=== PATIENT | female | born 1965 | race Caucasian/White ===

== ENCOUNTER → 2018-03-03 11:37 | Outpatient (CLI) | payer OTHER, SELFPAY ==
--- NOTE | 2018-03-03 11:41 | BI_ITS ---
MAMMOGRAPHY - BILATERAL SCREENING REASON FOR EXAM: Female, 52 years old. Routine annual screening examination. PERTINENT HISTORY: Mother with breast cancer. Remote right excisional breast biopsy. Bilateral breast implants. TECHNIQUE: Digital bilateral breast ki (3D mammographic acquisition) in the CC and MLO projections. 2-D mediolateral oblique (MLO) and craniocaudad (CC) views of both breasts were obtained. CAD: Full Field Digital Mammography with Computer Added Detection was performed. COMPARISON: Comparison is made with prior study dated March 06, 2015. FINDINGS: Breast Composition: There are scattered areas of fibroglandular density. There are no dominant masses or suspicious calcifications. Stable appearance of the bilateral breast implants. No other significant abnormalities are identified. There has been no significant change since the prior study. BI/SCREENING MAMM (CAD), BILAT IMPRESSION: Stable bilateral screening mammogram. Yearly follow-up mammogram recommended. (A) ASSESSMENT CATEGORY: BIRADS Category 2: Benign. A letter regarding these results will be sent to the patient by the facility within 30 days. Approximately 10% of breast cancers are not detected by mammography. A normal mammogram should not delay biopsy of a clinically suspicious abnormality. [id number] Electronically Signed: Sergio Young MD at 15:41 EST Tel [phone], Service support ,
== END ==
PROVIDERS: Family Provider Internal Medicine; PCP Internal Medicine; Visit Provider Internal Medicine
DX: Z12.31 Encounter for screening mammogram for malignant neoplasm of breast (principal)
CPT/HCPCS: 77063; 77067

== ENCOUNTER → 2018-03-03 12:08 | Outpatient (CLI) | payer OTHER, SELFPAY ==
--- NOTE | 2018-03-03 12:16 | CT_ITS ---
STUDY: CT ABDOMEN WITH CONTRAST REASON FOR EXAM: Female, 52 years old. Abdominal bulge RADIATION DOSAGE (If Supplied By Facility): CTDIvol = ( 11.83 ) mGy, DLP = ( 521.39 ) mGycm TECHNIQUE: Transaxial images were obtained post I.V. administration of 100 ml of Isovue 300 contrast, and oral contrast. Sagittal and coronal images were reconstructed. Individualized dose optimization techniques were used for this CT. COMPARISON: None. FINDINGS: Bilateral breast implants. The right implant is ruptured (extracapsular). There is subsequent tracking of the fluid into the subcutaneous space in the right upper quadrant and hence the clinical history of the right upper quadrant bulge The liver is normal. No dilated intrahepatic biliary radicles. The gallbladder is normal with no calcifications within it. There is no pericholecystic fluid collection or streakiness The spleen is normal. The pancreas is normal. A 1.1 cm left adrenal nodule There is a left-sided extrarenal pelvis and a tiny right benign cyst. The stomach is normal. There is no bowel distention, acute appendicitis or diverticulitis. No constricting lesions are seen in large bowel. The abdominal wall is intact with no hernias. There is no ascites or any free intraperitoneal air. No indication of epiploic appendagitis The vascular structures in the retroperitoneum are normal. There is no retrocrural, retroperitoneal or mesenteric adenopathy. The bones and joints are normal. . CT/Abdomen WITH IV Contrast IMPRESSION: Extracapsular rupture of a right breast implant with collection of fluid within the subcutaneous tissues over the right lower chest wall. This has created the clinically palpable bulge mentioned in the history. Electronically Signed: Maciel Ramos MD at 6:57 EST Tel , Service support ,
== END ==
LOC: CT 12:12
PROVIDERS: Family Provider Internal Medicine; PCP Internal Medicine; Referring Provider Internal Medicine; Visit Provider Internal Medicine
DX: R19.01 Right upper quadrant abdominal swelling, mass and lump (principal)
CPT/HCPCS: 74160; 74177; Q9967

== ENCOUNTER → 2018-03-24 09:12 | Outpatient (CLI) | payer OTHER, SELFPAY ==
--- NOTE | 2018-03-24 09:30 | RAD_ITS ---
STUDY: X-RAY - ESOPHAGUS (BARIUM SWALLOW) WITH FLUOROSCOPY REASON FOR EXAM: Female, 52 years old. Dysphasia. TECHNIQUE: 18 view(s) of the esophagus were obtained following swallowing of barium. FLUOROSCOPY TIME (if supplied): (0:30) minutes/seconds COMPARISON: None. FINDINGS: There is no demonstrated esophageal foreign body. There is no demonstrated stricture or mucosal abnormality. There is a small hiatal hernia of the fundus of the stomach. There is evidence of gastroesophageal reflux up to the mid esophagus. A web is seen at the gastroesophageal junction. The patient ingested a 12 mm tablet of barium. The tablet is trapped at the gastroesophageal junction. Normal visualized aortic arch and descending thoracic aorta. Normal visualized pulmonary parenchyma. There are diffuse degenerative changes of the visualized thoracic spine. RAD/Esophagus Only IMPRESSION: Small sliding hiatal hernia with a moderate degree of gastroesophageal reflux. A wet is seen at the gastroesophageal junction with trapping of the 12 mm tablet of barium at that site. Electronically Signed: Sergio Young MD at 13:23 EST Tel [phone], Service support ,
--- OUTSIDE RECORDS SUMMARY | 2018-05-05 22:25 | XMS RPT_ITS ---
:1965 Author Organization [employer] Address [address] [place] [address] Phone Care Team Providers Name Role Phone Ran Fitzpatrick MD Reason for Visit Reason For Visit Description Start Date Consult Preliminary reason for visit data, not yet signed by the author as of ruptured breast implant Preliminary reason for visit data, not yet signed by the author as of Chief Complaint Chief Complaint Description Start Date ruptured breast implant Preliminary chief complaint data, not yet signed by the author as of Instructions Instruction Description Start Date Patient advised to follow-up with Primary Care Physician for BMI management. Plan of Care Type Date Detail Appointment 09:00 AM [facility] Fitzpatrick [facility] [address] [facility], [place], [address], Patient education \cps-[email or web address]\[email or web address]\C [email or web address].pdf Medications Medication Instructions Start Stop Generic Name NDC Provider Date Date CITALOPRAM 1 tablet daily / CITALOPRAM 04144756300 Margarita HYDROBROMIDE 10 04 HYDROBROMIDE [place] MG TABS [employer]ULTANT MULTIVITAMIN 1 tablet daily / MULTIPLE [id number] Margarita ADULT TABS 04 VITAMINS-MINERAL [place] S [employer]ANT OMEGA-3 FISH 1 capsule daily / OMEGA-3 FATTY [id number] Margarita OIL CAPS 04 ACIDS CAPS [place] [employer] DHA 300MG 1 capsule daily / DHA 300MG Margarita 04 [place] [employer] PROBIOTIC CAPS 1 capsule daily SACCHAROMYCES [id number] Margarita 04 BOULARDII CAPS [place] [employer] TURMERIC CAPS 1 capsule daily TURMERIC CAPS [id number] Margarita 04 [place] [employer] Conditions or Problems Problem Problem Onset Status Entry Provider Comment Standard Annotate Name Code Date Date Description Encounter Z41.1 Active Ran A Encounter for for (ICD-10-CM) / Nanette SOLIMAN cosmetic cosmetic surgery surgery Rupture of [id number] Active Ran A Rupture of implant of (SNOMED CT) / Nanette SOLIMAN breast right implant breast Allergies, Adverse Reactions, Alerts Observed no known allergies at Social History Concept Description Observation Name Observation Value Units Start Date Alcohol intake ALCOHOL COMM 2-3 beers with 7 days/week Preliminary social history data, not yet signed by the author as of Alcohol use ETOH USE Yes Preliminary social history data, not yet signed by the author as of Vital Signs Date Name Value Unit Description BMI (Body Mass 31.82 kg/m2 Body Mass Index Index) [Ratio] Preliminary vital sign data, not yet signed by the author as of BP Diastolic 84 mm[Hg] blood pressure, diastolic Preliminary vital sign data, not yet signed by the author as of BP Systolic 129 mm[Hg] blood pressure, systolic Preliminary vital sign data, not yet signed by the author as of Heart Rate 78 /min pulse rate E&M Preliminary vital sign data, not yet signed by the author as of Height 63 [in_us] height E&M Preliminary vital sign data, not yet signed by the author as of Height 160 cm height in centimeters E&M Preliminary vital sign data, not yet signed by the author as of Weight Measured 179 [lb_av] weight E&M Preliminary vital sign data, not yet signed by the author as of Weight Measured 81 kg weight in kilograms E&M Preliminary vital sign data, not yet signed by the author as of Results Date Name Value Unit Range Flag Description Office Visit: Consult, Rm: 10 MEDS REVIEW Done Documentation of current medications (procedure) Preliminary observation data, not yet signed by the author as of Preliminary observation data, not yet signed by the author as of Clinical Summary: Scanned ROS Summary ROS: Denies genitourinary review of systems, E&M ROS GI COM Heart Gastrointestional Burn,Vomiting review of systems, comment ROS: GI Complains ROS gastrointestinal E&M ROS ENDO COM Weight Gain,Heat endocrine system, Intolerance review of, comments ROS ENDO Complains endocrine ROS ROS MSK COMM Joint Pain ROS Musculoskeletal comments ROS:MUSCSKEL Complains ROS musculoskeletal E&M ROSPSYCHCOMM Anxiety,Depressi ROS Psych comment on ROS: PSYCH Complains ROS psychiatric E&M ROS HEME Denies ROS hematologic/lymphatic E&M ROS_SKIN_COM Itching Review of Systems Skin comment ROS SKIN Complains ROS skin E&M ROS ENT Denies ROS ENT E&M ROS:GENERAL Denies ROS general E&M ROS: NEURO Denies ROS neurological E&M ROS:PULMON Denies ROS pulmonary E&M ROS: CARDIAC Denies ROS cardiovascular E&M Clinical Summary: [facility] account number Clinical Lists Update: Preload Extended SMOK STATUS former smoker Tobacco smoking status NHIS Procedures Code Procedure Name Date Entry Date G8731 Pain assessment documented as negative - follow-up not required G8427 Current medications documented 1036F Tobacco screening was negative - non user G8417 BMI documented as above normal parameters - follow-up documented G8783 Blood pressure within normal parameters - no follow-up required [id number] Patient Encounter Medications Administered No information available. Immunizations No information available. Advance Directives There may be information available, but it has not been provided by the sender. Assessments There may be information available, but it has not been provided by the sender. Review of Systems There may be information available, but it has not been provided by the sender. Family History There may be information available, but it has not been provided by the sender. History of Past Illness There may be information available, but it has not been provided by the sender. History of Present Illness There may be information available, but it has not been provided by the sender.
--- OUTSIDE RECORDS SUMMARY | 2018-05-05 22:25 | XMS RPT_ITS | Continuity of Care Document ---
:1965 Author Organization [facility] Address [address] [place] [address] Phone Care Team Providers Name Role Phone Jovana Puentes DO Unavailable Suzanne Abreu DO Unavailable Dr. Praveen Mills Unavailable Alyse Glaser Unavailable Unavailable Benita Gibbs Unavailable Unavailable Louisa Pantoja Unavailable Unavailable Unavailable Unavailable Problems Name Dates Details Abdominal mass, RUQ (right upper quadrant) (R19.01, 789.31) Status: Active Abnormal finding on breast imaging (R92.8, 793.89) Status: Active Abortions/Miscarriages Comments: [facility] 88-89 Status: Active Adrenal adenoma, left (D35.02, 227.0) Comments: followup 6 olga Status: Active Anxiety (F41.9, 300.00) Status: Active BMI 30.0-30.9,adult (Z68.30, V85.30) Status: Active Candidiasis (B37.9, 112.9) Status: Active Chronic foot pain, right (M79.671, 729.5) Comments: take ibuprofen routinely and if not better morw work up Status: Active Dysphagia (R13.10, 787.20) Status: Active Encounter for screening mammogram for breast cancer (Renamed from Encounter for screening mammogram for malignant neoplasm of breast) (Z12.31, V76.12) Status: Active Family history of hyperparathyroidism (Z83.49, V18.19) Status: Active GERD (gastroesophageal reflux disease) (K21.9, 530.81) Comments: otc pepcid Status: Active Keratosis (L57.0, 701.1) Status: Active Low back pain potentially associated with radiculopathy (M54.5, 724.2) Status: Active [facility] Status: Active Migraine (G43.909, 346.90) Status: Active Non-smoker (Z78.9, V49.89) Status: Active Obesity (E66.9, 278.00) Comments: with other comorbid issues she needs to loose more weight even though under 30 bmi. she is making lifestyle change. okay for another month Status: Active Other dysphagia (R13.19, 787.29) Status: Active Pregnancies () Comments: 3 Status: Active PVC (premature ventricular contraction) (I49.3, 427.69) Status: Active Ruptured right breast implant (T85.43XA, 996.54) Status: Active Thyroid nodule (E04.1, 241.0) Status: Active Thyromegaly (E04.9, 240.9) Status: Active Unspecified Diagnosis Status: Active Unspecified Diagnosis Status: Active Unspecified Diagnosis Status: Active Unspecified Diagnosis Status: Active Vitamin D deficiency (E55.9, 268.9) Status: Active Well woman exam (Z00.00, V70.0) Status: Active Medications Name Dates Details Citalopram Hydrobromide 20 MG Oral Tablet 1 Tablet qd for 0 days Quantity: 30 {Tablet} Refills: 6 Ordered:26-May-2017 Jalyn Lara MD Start : 26-May-2017 Active Vitamin D3 2000 UNIT Oral Tablet 2 (two) Tablet Tablet qd for 0 days Quantity: 30 {Tablet} Refills: 2 Ordered:23-Oct-2016 Benita Gibbs Start : 19-Jul-2016 Active Adipex-P 37.5 MG Oral Tablet 1 (one) Tablet qd for 0 days Quantity: 30 {Tablet} Refills: 0 Ordered:09-Dec-2017 SEEMA Sahu Start : 29-May-2017 End : 09-Dec-2017 Inactive Comments:thirty BMI 30.75 Augmentin 875-125 MG Oral Tablet 1 (one) Tablet bid x 10days for 10 days Quantity: 20 {Tablet} Refills: 0 Ordered:30-Apr-2017 Alyse Glaser Start : 30-Apr-2017 End : 10-May-2017 Inactive BACTRIM DS, 800-160MG (Oral Tablet) 1 Tablet bid for 7 days Quantity: 14 {Tablet} Refills: 0 Ordered:21-Oct-2011 Tiffanie Cevallos CNP Start : 21-Oct-2011 End : 28-Oct-2011 Inactive Belviq 10 MG Oral Tablet 1 (one) Tablet bid for 0 days Quantity: 60 {Tablet} Refills: 0 Ordered:27-Mar-2017 SEEMA Sahu Start : 02-Jan-2017 End : 27-Mar-2017 Inactive Comments:sixty BMI=29.8 BIAXIN, 500MG (Oral Tablet) 1 (one) Tablet bid for 0 days Quantity: 20 {Tablet} Refills: 0 Ordered:19-Jan-2010 Mirna Wilcox Start : 30-May-2009 Inactive Cipro 500 MG Oral Tablet 1 (one) Tablet bid for 0 days Quantity: 20 {Tablet} Refills: 0 Ordered:03-Jan-2017 SEEMA Sahu Start : 29-Nov-2016 End : 03-Jan-2017 Inactive CYCLOBENZAPRINE HCL, 10MG (Oral Tablet) 1 (one) Tablet qhs prn for 30 days Quantity: 30 {Tablet} Refills: 1 Ordered:31-Aug-2010 SEEMA Sahu Start : 13-Nov-2009 End : 31-Aug-2010 Inactive Doxycycline Hyclate 100 MG Oral Tablet Delayed Release 1 (one) Tablet bid for 0 days Quantity: 28 {Tablet} Refills: 0 Ordered:03-Jan-2017 SEEMA Sahu Start : 23-Oct-2016 End : 03-Jan-2017 Inactive DULoxetine HCl 30 MG Oral Capsule Delayed Release Particles 1 (one) Capsule DR Part Capsule DR Part qd for 0 days Quantity: 30 {Capsule} Refills: 3 Ordered:26-May-2017 SEEMA Sahu Start : 19-Jul-2016 End : 26-May-2017 Inactive Fluconazole 150 MG Oral Tablet 1 (one) Tablet daily for 4 days Quantity: 4 {Tablet} Refills: 0 Ordered:04-Dec-2016 Fast DO, Jovana AFast DO, Jovana A Start : 04-Dec-2016 End : 08-Dec-2016 Inactive LEXAPRO, 10MG (Oral Tablet) 1 Tablet qd for 0 days Quantity: 30 {Tablet} Refills: 3 Ordered:05-Mar-2011 Rosa Evangelista Start : 05-Mar-2011 End : 05-Mar-2011 Inactive Comments:may dispense generic Lidocaine Viscous 2 % Mouth/Throat Solution uad Solution Solution 15-20 ml q 3 hours prn for 0 days Quantity: 100 {Milliliter} Refills: 1 Ordered:07-Oct-2016 SEEMA Sahu Start : 25-Jan-2016 End : 07-Oct-2016 Inactive Comments:swish and spit MEDROL (YU), 4MG (Oral Tablet) uad Tablet qd until gpne for 0 days Quantity: 1 {Package} Refills: 0 Ordered:07-Aug-2015 SEEMA Sahu Start : 08-Jun-2015 End : 07-Aug-2015 Inactive Comments:take as directed with food MEDROL, 4MG (Oral Tablet) 1 (one) Tablet TAD for 0 days Quantity: 1 {Package(s)} Refills: 0 Ordered:19-Jan-2010 Mirna Wilcox Start : 29-Jun-2009 Inactive Nystatin 203504 UNIT/ML Mouth/Throat Suspension uad Suspension Suspension bid-tid for 0 days Quantity: 1 {Bottle} Refills: 1 Ordered:07-Oct-2016 SEEMA Sahu Start : 25-Jan-2016 End : 07-Oct-2016 Inactive Comments:swish and spit Omeprazole 20 MG Oral Capsule Delayed Release 1 (one) Capsule DR bid for 0 days Quantity: 28 {Capsule_DR} Refills: 0 Ordered:25-Jan-2016 SEEMA Sahu Start : 25-May-2007 End : 25-Jan-2016 Inactive PREDNISONE, 20MG (Oral Tablet) 1 Tablet 1 aday 5 days and 1/2 a dy for 5 days for 10 days Refills: 0 Ordered:30-Sep-2011 Jalyn Lara MD Start : 12-Aug-2011 End : 22-Aug-2011 Inactive Comments:called into Jeff morales by [facility] Promethazine HCl 25 MG Oral Tablet 1 (one) Tablet Tablet q6-8hrs prn nausea for 0 days Quantity: 30 {Tablet} Refills: 0 Ordered:25-Jan-2016 SEEMA Sahu Start : 30-Nov-2014 End : 25-Jan-2016 Inactive Valtrex 1 GM Oral Tablet 1 (one) Tablet tid for 0 days Quantity: 21 {Tablet} Refills: 3 Ordered:25-Jan-2016 SEEMA Sahu Start : 09-Jan-2015 End : 25-Jan-2016 Inactive Valtrex 500 MG Oral Tablet 1 (one) Tablet q12h x 3 days for 3 days Quantity: 6 {Tablet} Refills: 0 Ordered:30-Jan-2016 Tiffanie Cevallos CNP Start : 30-Jan-2016 End : 02-Feb-2016 Inactive BENADRYL, 50MG/ML (Injection Solution) 1 Solution Q X 1 for 0 days Quantity: 1 {Solution} Refills: 0 Ordered:06-Apr-2012 SEEMA Sahu Start : 12-Aug-2011 End : 06-Apr-2012 Discontinued Comments:This order discontinued per [facility]. CEFTRIAXONE SODIUM, 2GM (Injection Solution Reconstituted) 1 For Solution once for 0 days Quantity: 1 {For_Solution} Refills: 0 Ordered:02-Dec-2012 Fast DO, Jovana AFast DO, Jovana A Start : 02-Dec-2012 End : 02-Dec-2012 Discontinued CORTISPORIN, 3.5-00388-4 (Otic Solution) 4 drops Solution tid to affected ear(s) for 7-10 days for 0 days Quantity: 1 {Solution} Refills: 1 Ordered:02-Dec-2012 Fast DO, Jovana AFast DO, Jovana A Start : 02-Dec-2012 End : 02-Dec-2012 Discontinued Comments:ok for generic DOXYCYCLINE HYCLATE, 100MG (Oral Capsule Delayed Release Particles) [address] Part bid for 0 days Quantity: 20 {Capsule_DR_Part} Refills: 0 Ordered:03-Feb-2013 Benita Gibbs Start : 03-Feb-2013 End : 22-Mar-2015 Discontinued Comments:This order discontinued per [facility]. LORAZEPAM, 0.5MG (Oral Tablet) 1 Tablet q 6 hours prn for 0 days Quantity: 20 {Tablet} Refills: 0 Ordered:02-Dec-2012 Fast DO, Jovana AFast DO, Jovana A Start : 02-Dec-2012 End : 02-Dec-2012 Discontinued NEURONTIN, 100MG (Oral Capsule) 1 (one) Capsule tid for 0 days Quantity: 90 {Capsule} Refills: 1 Ordered:02-Dec-2012 Fast DO, Jovana AFast DO, Jovana A Start : 02-Dec-2012 End : 02-Dec-2012 Discontinued VICODIN, 5-500MG (Oral Tablet) 1 to 2 tabs Tablet q 6 hrs, prn for 30 days Quantity: 90 {Tablet} Refills: 1 Ordered:13-Nov-2009 SEEMA Sahu Start : 13-Nov-2009 End : 25-Jan-2016 Discontinued Comments:This order discontinued per [facility]. Vitamin B-12 1000 MCG Oral Tablet 1 tab daily (1000 MCG) End : 19-Jul-2016 Discontinued Allergies and Adverse Reactions Name Dates Details No Known Drug Allergies (Allergy) Status: Active Past Medical History Name Dates Details Abdominal pain, acute, generalized (R10.84, 789.07) Status: Resolved as of 09-Dec-2017 Acute sinusitis (J01.90, 461.9) Status: Resolved as of 09-Dec-2017 Anemia (D64.9, 285.9) Status: Resolved as of 09-Dec-2017 Benign neoplasm of skin (D23.9, 216.9) Status: Resolved as of 09-Dec-2017 BMI 26.0-26.9,adult (Z68.26, V85.22) Status: Inactive as of 28-Nov-2016 BMI 28.0-28.9,adult (Z68.28, V85.24) Status: Inactive as of 28-Nov-2016 Breast biopsy Status: Resolved as of 09-Dec-2017 Breast lump (N63.0, 611.72) Status: Resolved as of 09-Dec-2017 Breast pain (N64.4, 611.71) Status: Resolved as of 09-Dec-2017 Bronchitis (J40, 490) Status: Inactive as of 28-Nov-2016 Candidiasis (B37.9, 112.9) Status: Resolved as of 06-Nov-2015 Cerumen impaction (H61.20, 380.4) Status: Resolved as of 02-Dec-2012 Cough (R05, 786.2) Status: Resolved as of 09-Dec-2017 Dilation And Curettage Of Uterus Status: Resolved as of 09-Dec-2017 DISORDER, TONGUE NEC (529.8) Comments: swelling of tongue with sore on side and thick tongue. thick allergic reaction to cleslaw preservative. will do prednisone. if worsen to ER recheck in 15 min interval for 3 hours and got bet ter not worsen at all. Status: Resolved as of 09-Dec-2017 Dorsalgia, unspecified (M54.9, 724.5) Status: Resolved as of 09-Dec-2017 Ear pain (H92.09, 388.70) Status: Resolved as of 02-Dec-2012 Encounter for screening mammogram for breast cancer (Renamed from Encounter for screening mammogram for malignant neoplasm of breast) (Z12.31, V76.12) Status: Resolved as of 09-Dec-2017 family hx of high chol Status: Resolved as of 09-Dec-2017 Folliculitis (L73.9, 704.8) Status: Resolved as of 09-Dec-2017 Herpes simplex type 1 infection (B00.9, 054.9) Status: Inactive as of 28-Nov-2016 Jaundice (R17, 782.4) Status: Resolved as of 09-Dec-2017 LEEP PROCEDURE OF CERVIX Comments: 97 Status: Resolved as of 09-Dec-2017 Mouth sore (K13.79, 528.9) Status: Resolved as of 09-Dec-2017 Screening for HPV (human papillomavirus) (Z11.51, V73.81) Status: Inactive as of 06-Nov-2015 Screening for HPV (human papillomavirus) (Renamed from Encounter for screening for human papillomavirus (HPV)) (Z11.51, V73.81) Status: Resolved as of 09-Dec-2017 Shingles (B02.9, 053.9) Status: Inactive as of 28-Nov-2016 Sore throat (J02.9, 462) Status: Resolved as of 09-Dec-2017 Tick bite (W57.XXXA, 919.4) Status: Inactive as of 28-Nov-2016 Ulcer mouth (K12.1, 528.9) Status: Resolved as of 09-Dec-2017 Unspecified Diagnosis Status: Resolved as of 09-Dec-2017 Unspecified open wound of other finger without damage to nail, initial encounter (S61.208A, 883.0) Status: Resolved as of 02-Dec-2012 Urinary frequency (R35.0, 788.41) Status: Resolved as of 02-Dec-2012 xanthelasma Status: Resolved as of 09-Dec-2017 Procedures Procedure Dates Details section full term Completed d/c Completed discectomy lumbar spine 2010 Completed Leep procedure in early 20 - no bad since Completed right lumpectomy of breast Completed Tonsillectomy Completed Section Completed Date Value Details 03-Mar-2018 Abdomen WITH IV Contrast Result: Comments: See Note; NOTES: [facility] [address] [place] [address] Abdomen WITH IV Contrast MR#: [id number] Acct: [id number] Name: FAISAL HAYS Rep #: [id number] : 1965 F 52 From: Maciel Ramos MD PCP: Jovana Puentes DO Status: REG CLI Study: Abdomen WITH IV Contrast Date of Exam: 03/03/18 Exam# [id number] Ordering Dr: Jovana Puentes DO STUDY: CT ABDOMEN WITH CONTRAST REASON FOR EXAM: Female, 52 years old. Abdominal bulge RADIATION DOSAGE (If Supplied By Facility): CTDIvol = ( 11.83 ) mGy, DLP = ( 521.39 ) mGycm TECHNIQUE: Transaxial imag es were obtained post I.V. administration of 100 ml of Isovue 300 contrast, and oral contrast. Sagittal and coronal images were reconstructed. Individualized dose optimization techniques were used for this CT. COMPARISON: None. FINDINGS: Bilateral breast implants. The right implant is ruptured (extracapsular). There is subsequent tracking of the fluid into the cantrell bcutaneous space in the right upper quadrant and hence the clinical history of the right upper quadrant bulge The liver is normal. No dilated intrahepatic biliary radicles. The gallbladder is normal wi th no calcifications within it. There is no pericholecystic fluid collection or streakiness The spleen is normal. The pancreas is normal. A 1.1 cm left adrenal nodule There is a left-sided extrarenal pelvis and a tiny right benign cyst. The stomach is normal. There is no bowel distention, acute appendicitis or diverticulitis. No constricting lesions are seen in large bowel. The abdominal wall is i ntact with no hernias. There is no ascites or any free intraperitoneal air. No indication of epiploic appendagitis The vascular structures in the retroperitoneum are normal. There is no retrocrural, r etroperitoneal or mesenteric adenopathy. The bones and joints are normal. . CT/Abdomen WITH IV Contrast IMPRESSION: Extracapsular rupture of a right breast implant with collection of fluid within the subcutaneous tissues over the right lower chest wall. This has created the clinically palpable bulge mentioned in the history. Electronically S igned: Maciel Ramos MD at 6:57 EST Tel , Service support , CC: Jovana Puentes DO [employer] Consultant: Signed 03-Mar-2018 SCREENING MAMM (CAD), BILAT Result: Comments: See Note; NOTES: [facility] [address] [place] [id number] SCREENING MAMM (CAD), BILAT MR#: [id number] Acct: [id number] Name: ALBAFAISAL M Rep #: [id number] : 1965 F 52 From: Sergio Young MD PCP: Jovana Puentes DO Status: REG CLI Study: SCREENING MAMM (CAD), BILAT Date of Exam: 03/03/18 Exam# [id number] Ordering Dr: Jovana Puentes DO MAMM OGRAPHY - BILATERAL SCREENING REASON FOR EXAM: Female, 52 years old. Routine annual screening examination. PERTINENT HISTORY: Mother with breast cancer. Remote right excisional breast biopsy. Bilatera l breast implants. TECHNIQUE: Digital bilateral breast ki (3D mammographic acquisition) in the CC and MLO projections. 2-D mediolateral oblique (MLO) and craniocaudad (CC) views of both breasts were obtained. CAD: Full Field Digital Mammography with Computer Added Detection was performed. COMPARISON: Comparison is made with prior study dated March 06, 2015. F INDINGS: Breast Composition: There are scattered areas of fibroglandular density. There are no dominant masses or suspicious calcifications. Stable appearance of the bilateral breast implants. No othe r significant abnormalities are identified. There has been no significant change since the prior study. BI/SCREENING MAMM (CAD), BILAT IMPRESSION : Stable bilateral screening mammogram. Yearly follow-up mammogram recommended. (A) ASSESSMENT CATEGORY: BIRADS Category 2: Benign. A letter regarding these results will be sent to the patient by the facility within 30 days. Approximately 10% of breast cancers are not detected by mammography. A normal mammogram should not delay biopsy of a clinically suspicious a bnormality. [id number] Electronically Signed: Sergio Young MD at 15:41 EST Tel [phone], Service support , CC: Jovana Puentes DO [employer] Consultant: Signed 06-Oct-2015 Thyroid Result: Comments: See Note; NOTES: [facility] Services [address] [place] [id number] Verdana 4d Thyroid MR#: [id number] Acct: [id number] Name: FAISAL HAYS Rep #: [id number] : 1965 F 50 From: Jovani Cuba MD PCP: Jovana Puentes DO Status: REG CLI Study: Thyroid Date of Exam: 10/06/15 Exam# [id number] Ordering Dr: Jovana Puentes DO STUDY: THYROID ULTRASOUND REASON FOR EXAM: Female, 50 years old. Followup nodules. TECHNIQUE: Ultrasound evaluation of the thyroid was performed with real-time and static gibbs-scale imaging. COMPARISON: None. FINDINGS: RIGHT LOBE: The right lobe of the thyroid gland measures 5.4 x 1.4 x 1.4 cm. There is a homogeneous echotexture. There are no demonstrated solid, cyst ic or complex lesions. LEFT LOBE: The left lobe of the thyroid gland measures 6.1 x 2.4 x 2.0 cm. There is a heterogeneous echotexture. 2 adjacent complex nodules are seen. One measures 2.7 cm great est dimension. The other measures 3.5 cm greatest dimension. Overall greatest dimension of these 2 adjacent nodules is similar to prior exam. ISTHMUS: The isthmus measures 1 mm. . The regional lym ph nodes are normal. IMPRESSION: 2 adjacent complex nodules of the left thyroid lobe. No gross change, but annual follow up is recommended. Electronically Sig bob: Jovani Cuba MD at 20:52 EDT , Service support [phone], CC: Jovana Puentes DO [employer] Consultant: Signed 06-Mar-2015 Bilat Scrn Implant DIG AND CAD Result: Comments: See Note; NOTES: [facility] Services [address] [place] [address] Verdana 4d Bilat Scrn Implant DIG AND CAD MR#: [id number] Acct: [id number] Na me: FAISAL HAYS Rep #: [id number] : 1965 F 49 From: Sergio Young MD PCP: Jovana Puentes DO Status: REG CLI Study: Bilat Scrn Implant DIG AND CAD Date of Exam: 03/06/15 Exam# [id number] Ordering Dr: Jovana Puentes DO MAMMOGRAPHY - BILATERAL SCREENING REASON FOR EXAM: Female, 49 years old. Routine annual screening examination. PERTINENT HISTORY: Mother with breast cancer. Prior r ight excisional breast biopsy. Bilateral breast implants. TECHNIQUE: Digital examination. Mediolateral oblique (MLO) and craniocaudad (CC) views of both breasts were obtained. CAD: CAD was performe d on this study. COMPARISON: Comparison is made with prior outside examination dated March 02, 2013 and July 21, 2009 FINDINGS: Breast Composition: There ar e scattered areas of fibroglandular density. There are no dominant masses or suspicious calcifications. Bilateral breast implants are once again seen. No other significant abnormalities are identif ied. There has been no significant change since the prior study. IMPRESSION: Stable bilateral screening mammogram. Yearly follow-up recommended. (A) ASSESSMENT CATEGORY: BIRADS Category 2: Benign. A letter regarding these results will be sent to the patient by the facility within 30 days. Approximately 10% of breast c ancers are not detected by mammography. A normal mammogram should not delay biopsy of a clinically suspicious abnormality. Electronically Signed: Sergio Young MD at 15:44 EST Te l [phone], Service support [phone], CC: Jovana Puentes DO [employer] Consultant: Signed Family History Unknown Family Member Name Dates Details Father Comments: living at 73- did hip replacement - memory loss/quad bypass- early 60s with mi- dm on insulin, melanoma x2 squamous as well Status: Active First Degree Relatives Comments: ETOH, DM, Heart/lung dx, HBP, high cholesterol lung cancer in 50s on fathers side Status: Active Mother Comments: breast ca age 64, 2 herniated discs with surgery Status: Active Social History Name Dates Details Alcohol Use Comments: weekly Status: Active Caffeine Use Comments: 2 coffee, tea QD Status: Active Tobacco Use Comments: Remotely quit tobacco use Status: Active Vital Signs Date Test Result Details [id number] Temperature 97.8 f Comments: Method: Temporal Pulse 78 /min Comments: Pattern: Regular Respiration Rate 16 /min Comments: Pattern: Unlabored BP Systolic 126 mm[Hg] Comments: Patient Position: Sitting; Cuff Location: Left Arm; Cuff Size: Standard BP Diastolic 78 mm[Hg] Comments: Patient Position: Sitting; Cuff Location: Left Arm; Cuff Size: Standard Weight 174 lb Height 63 in Body Mass Index Calculated 30.82 kg/m2 Body Surface Area Calculated 1.82 m2 :30 Temperature 97.9 f Comments: Method: Temporal Pulse 72 /min Comments: Pattern: Regular Respiration Rate 20 /min Comments: Pattern: Unlabored O2 SAT 98 % Comments: Room air BP Systolic 108 mm[Hg] Comments: Patient Position: Sitting; Cuff Location: Left Arm; Cuff Size: Standard BP Diastolic 74 mm[Hg] Comments: Patient Position: Sitting; Cuff Location: Left Arm; Cuff Size: Standard Weight 174 lb Height 63 in Body Mass Index Calculated 30.82 kg/m2 Body Surface Area Calculated 1.82 m2 :13 Temperature 97.9 f Comments: Method: Temporal Pulse 70 /min Comments: Pattern: Regular Respiration Rate 20 /min Comments: Pattern: Unlabored O2 SAT 98 % Comments: Room air BP Systolic 116 mm[Hg] Comments: Patient Position: Sitting; Cuff Location: Left Arm; Cuff Size: Standard BP Diastolic 76 mm[Hg] Comments: Patient Position: Sitting; Cuff Location: Left Arm; Cuff Size: Standard Weight 175 lb Height 63 in Body Mass Index Calculated 31 kg/m2 Body Surface Area Calculated 1.83 m2 :01 Temperature 97.9 f Comments: Method: Temporal Pulse 70 /min Comments: Pattern: Regular Respiration Rate 20 /min Comments: Pattern: Unlabored O2 SAT 98 % Comments: Room air BP Systolic 114 mm[Hg] Comments: Patient Position: Sitting; Cuff Location: Left Arm; Cuff Size: Standard BP Diastolic 74 mm[Hg] Comments: Patient Position: Sitting; Cuff Location: Left Arm; Cuff Size: Standard Weight 170 lb Height 63 in Body Mass Index Calculated 30.11 kg/m2 Body Surface Area Calculated 1.8 m2 :46 Temperature 97 f Comments: Method: Temporal Pulse 80 /min Comments: Pattern: Regular Respiration Rate 16 /min Comments: Pattern: Unlabored O2 SAT 97 % Comments: Room air BP Systolic 100 mm[Hg] Comments: Patient Position: Sitting; Cuff Location: Left Arm; Cuff Size: Standard BP Diastolic 60 mm[Hg] Comments: Patient Position: Sitting; Cuff Location: Left Arm; Cuff Size: Standard Weight 161 lb Height 63 in Body Mass Index Calculated 28.52 kg/m2 Body Surface Area Calculated 1.76 m2 :44 Temperature 97.8 f Comments: Method: Temporal Pulse 92 /min Comments: Pattern: Regular Respiration Rate 16 /min Comments: Pattern: Unlabored O2 SAT 97 % Comments: Room air BP Systolic 114 mm[Hg] Comments: Patient Position: Sitting; Cuff Location: Left Arm; Cuff Size: Standard BP Diastolic 74 mm[Hg] Comments: Patient Position: Sitting; Cuff Location: Left Arm; Cuff Size: Standard Weight 160 lb Height 63 in Body Mass Index Calculated 28.34 kg/m2 Body Surface Area Calculated 1.76 m2 :03 Temperature 97.1 f Comments: Method: Temporal Pulse 86 /min Comments: Pattern: Regular Respiration Rate 15 /min Comments: Pattern: Unlabored O2 SAT 96 % Comments: Room air BP Systolic 104 mm[Hg] Comments: Patient Position: Sitting; Cuff Location: Left Arm; Cuff Size: Standard BP Diastolic 66 mm[Hg] Comments: Patient Position: Sitting; Cuff Location: Left Arm; Cuff Size: Standard Weight 152 lb Height 63 in Body Mass Index Calculated 26.93 kg/m2 Body Surface Area Calculated 1.72 m2 :25 BP Systolic 110 mm[Hg] Comments: Patient Position: Sitting; Cuff Location: Left Arm; Cuff Size: Standard BP Diastolic 68 mm[Hg] Comments: Patient Position: Sitting; Cuff Location: Left Arm; Cuff Size: Standard Weight 151 lb Height 63 in Body Mass Index Calculated 26.75 kg/m2 Body Surface Area Calculated 1.72 m2 :19 BP Systolic 114 mm[Hg] Comments: Patient Position: Sitting; Cuff Location: Left Arm; Cuff Size: Standard BP Diastolic 74 mm[Hg] Comments: Patient Position: Sitting; Cuff Location: Left Arm; Cuff Size: Standard Weight 160.0188 lb Height 63 in Body Mass Index Calculated 28.35 kg/m2 Body Surface Area Calculated 1.76 m2 :43 Temperature 97.6 f Comments: Method: Oral Pulse 76 /min Comments: Pattern: Regular Respiration Rate 18 /min Comments: Pattern: Unlabored BP Systolic 110 mm[Hg] Comments: Patient Position: Sitting; Cuff Location: Left Arm; Cuff Size: Standard BP Diastolic 74 mm[Hg] Comments: Patient Position: Sitting; Cuff Location: Left Arm; Cuff Size: Standard Weight 171 lb Height 63 in Body Mass Index Calculated 30.29 kg/m2 Body Surface Area Calculated 1.81 m2 :20 Temperature 100.4 f Pulse 84 /min Comments: Pattern: Regular Respiration Rate 16 /min Comments: Pattern: Unlabored BP Systolic 112 mm[Hg] Comments: Patient Position: Sitting; Cuff Location: Left Arm; Cuff Size: Large BP Diastolic 72 mm[Hg] Comments: Patient Position: Sitting; Cuff Location: Left Arm; Cuff Size: Large Weight 161 lb Height 63 in Body Mass Index Calculated 28.52 kg/m2 Body Surface Area Calculated 1.76 m2 :26 Temperature 98.2 f Pulse 92 /min Comments: Pattern: Regular Respiration Rate 18 /min Comments: Pattern: Unlabored BP Systolic 100 mm[Hg] Comments: Patient Position: Sitting; Cuff Location: Left Arm; Cuff Size: Large BP Diastolic 60 mm[Hg] Comments: Patient Position: Sitting; Cuff Location: Left Arm; Cuff Size: Large Weight 161 lb Height 63 in Body Mass Index Calculated 28.52 kg/m2 Body Surface Area Calculated 1.76 m2 :20 Pulse 72 /min Comments: Pattern: Regular Respiration Rate 18 /min Comments: Pattern: Unlabored BP Systolic 120 mm[Hg] Comments: Patient Position: Supine; Cuff Location: Left Arm; Cuff Size: Standard BP Diastolic 72 mm[Hg] Comments: Patient Position: Supine; Cuff Location: Left Arm; Cuff Size: Standard :09 Temperature 96.1 f Pulse 92 /min Comments: Pattern: Regular Respiration Rate 16 /min Comments: Pattern: Unlabored BP Systolic 104 mm[Hg] Comments: Patient Position: Sitting; Cuff Location: Left Arm; Cuff Size: Standard BP Diastolic 68 mm[Hg] Comments: Patient Position: Sitting; Cuff Location: Left Arm; Cuff Size: Standard :55 Temperature 97.9 f Comments: Method: Oral Pulse 78 /min Comments: Pattern: Regular Respiration Rate 17 /min Comments: Pattern: Unlabored BP Systolic 118 mm[Hg] Comments: Patient Position: Sitting; Cuff Location: Left Arm; Cuff Size: Standard BP Diastolic 72 mm[Hg] Comments: Patient Position: Sitting; Cuff Location: Left Arm; Cuff Size: Standard Weight 0 lb Height 0 in Head Circumference 0.00 cm Results Date Description Value Details :26 METABOLIC PANEL, Comments: PATIENT WAS FASTINGPERFORMED BY: [facility] CenterHpqhla6678 [facility] [id number] Information: NURSE DRAW COMPREHENSIVE (61837) ALT (SGPT) 18 [iU]/L (Normal) Range: 0-32 AST (SGOT) 18 [iU]/L (Normal) Range: 0-40 Alkaline Phosphatase 60 [iU]/L (Normal) Range: 39-117 Bilirubin, Total 0.4 mg/dL (Normal) Range: 0.0-1.2 A/G Ratio 1.9 (Normal) Range: 1.2-2.2 Globulin, Total 2.3 g/dL (Normal) Range: 1.5-4.5 Albumin 4.3 g/dL (Normal) Range: 3.5-5.5 Protein, Total 6.6 g/dL (Normal) Range: 6.0-8.5 Calcium 9.2 mg/dL (Normal) Range: 8.7-10.2 Carbon Dioxide, Total 21 mmol/L (Normal) Range: 20-29 Chloride 103 mmol/L (Normal) Range: 96-106 Potassium 4.3 mmol/L (Normal) Range: 3.5-5.2 Sodium 139 mmol/L (Normal) Range: 134-144 BUN/Creatinine Ratio 12 (Normal) Range: 9-23 eGFR If Africn Am 119 mL/min/1.73 (Normal) eGFR If NonAfricn Am 103 mL/min/1.73 (Normal) Creatinine 0.67 mg/dL (Normal) Range: 0.57-1.00 BUN 8 mg/dL (Normal) Range: 6-24 Glucose 96 mg/dL (Normal) Range: 65-99 32-Cuc-531623:26 CBC & PLATELETS (AUTO) Comments: PATIENT WAS FASTINGPERFORMED BY: [facility] [id number] (27389) Platelets 237 {x10E3/uL} (Normal) Range: 150-379 RDW 13.5 % (Normal) Range: 12.3-15.4 MCHC 33.1 g/dL (Normal) Range: 31.5-35.7 MCH 31.8 pg (Normal) Range: 26.6-33.0 MCV 96 fL (Normal) Range: 79-97 Hematocrit 40.8 % (Normal) Range: 34.0-46.6 Hemoglobin 13.5 g/dL (Normal) Range: 11.1-15.9 RBC 4.24 {x10E6/uL} (Normal) Range: 3.77-5.28 WBC 6.0 {x10E3/uL} (Normal) Range: 3.4-10.8 08-Ytp-922128:04 HEPATIC FUNCTION PANEL Comments: PATIENT NOT FASTINGPERFORMED BY: [facility] CenterBkauue3365 [facility] [id number] (42753) ALT (SGPT) 12 [iU]/L (Normal) Range: 0-32 AST (SGOT) 14 [iU]/L (Normal) Range: 0-40 Alkaline Phosphatase, S 53 [iU]/L (Normal) Range: 39-117 Bilirubin, Direct 0.10 mg/dL (Normal) Range: 0.00-0.40 Bilirubin, Total 0.3 mg/dL (Normal) Range: 0.0-1.2 Albumin, Serum 4.4 g/dL (Normal) Range: 3.5-5.5 Protein, Total, Serum 6.7 g/dL (Normal) Range: 6.0-8.5 :04 HEPATITIS PANEL (39520) Comments: PATIENT NOT FASTINGPERFORMED BY: [facility] CenterKhvtds7238 [facility] [id number] Hep C Virus Ab <0.1 {s/co_ratio} (Normal) Range: 0.0-0.9 Comments: Negative: < 0.8 Indeterminate: 0.8 - 0.9 Positive: > 0.9 . The CDC recommends that a positive HCV antibody result be followed up with a HCV Nucleic Acid Amplification test (116063). Hep B Core Ab, IgM Negative (Normal) HBsAg Screen Negative (Normal) Hep A Ab, IgM Negative (Normal) 31-Urc-188556:09 Lyme Disease Antibody W/ Comments: 6 weeks; PATIENT NOT FASTINGPERFORMED BY: [facility] CenterShhvsd6475 [facility] [id number] Reflex ([id number]) Lyme IgG/IgM Ab <0.91 {ISR} (Normal) Range: 0.00-0.90 Comments: Negative <0.91 Equivocal 0.91 - 1.09 Positive >1.09 22-Xtp-170570:50 Lyme Disease Antibody W/ Comments: PATIENT NOT FASTINGPERFORMED BY: [facility] [id number] Reflex (21253) Lyme IgG/IgM Ab <0.91 {ISR} (Normal) Range: 0.00-0.90 Comments: Negative <0.91 Equivocal 0.91 - 1.09 Positive >1.09 9-Tlh-975842:30 CBC WITH MANUAL DIFF Comments: PATIENT NOT FASTINGPERFORMED BY: [facility]6370 [facility] [id number] Information: NURSE DRAW; [facility] labs- all normal (75754) Immature Grans (Abs) 0.0 {x10E3/uL} (Normal) Range: 0.0-0.1 Immature Granulocytes 0 % (Normal) Baso (Absolute) 0.0 {x10E3/uL} (Normal) Range: 0.0-0.2 Eos (Absolute) 0.1 {x10E3/uL} (Normal) Range: 0.0-0.4 Monocytes(Absolute) 0.3 {x10E3/uL} (Normal) Range: 0.1-0.9 Lymphs (Absolute) 1.7 {x10E3/uL} (Normal) Range: 0.7-3.1 Neutrophils (Absolute) 3.9 {x10E3/uL} (Normal) Range: 1.4-7.0 Basos 0 % (Normal) Eos 2 % (Normal) Monocytes 5 % (Normal) Lymphs 29 % (Normal) Neutrophils 64 % (Normal) Platelets 256 {x10E3/uL} (Normal) Range: 150-379 RDW 13.5 % (Normal) Range: 12.3-15.4 MCHC 32.9 g/dL (Normal) Range: 31.5-35.7 MCH 31.1 pg (Normal) Range: 26.6-33.0 MCV 95 fL (Normal) Range: 79-97 Hematocrit 41.6 % (Normal) Range: 34.0-46.6 Hemoglobin 13.7 g/dL (Normal) Range: 11.1-15.9 RBC 4.40 {x10E6/uL} (Normal) Range: 3.77-5.28 WBC 6.1 {x10E3/uL} (Normal) Range: 3.4-10.8 3-Wsz-746652:30 Metabolic Panel, Comprehensive Comments: PATIENT NOT FASTINGPERFORMED BY: [facility] CenterIcjhnm5208 [facility] [id number] (40490) ALT (SGPT) 16 [iU]/L (Normal) Range: 0-32 AST (SGOT) 12 [iU]/L (Normal) Range: 0-40 Alkaline Phosphatase, S 45 [iU]/L (Normal) Range: 39-117 Bilirubin, Total 0.7 mg/dL (Normal) Range: 0.0-1.2 A/G Ratio 2.0 (Normal) Range: 1.1-2.5 Globulin, Total 2.1 g/dL (Normal) Range: 1.5-4.5 Albumin, Serum 4.3 g/dL (Normal) Range: 3.5-5.5 Protein, Total, Serum 6.4 g/dL (Normal) Range: 6.0-8.5 Calcium, Serum 8.8 mg/dL (Normal) Range: 8.7-10.2 Carbon Dioxide, Total 20 mmol/L (Normal) Range: 18-29 Chloride, Serum 98 mmol/L (Normal) Range: 96-106 Potassium, Serum 4.2 mmol/L (Normal) Range: 3.5-5.2 Sodium, Serum 137 mmol/L (Normal) Range: 134-144 BUN/Creatinine Ratio 13 (Normal) Range: 9-23 eGFR If Africn Am 124 mL/min/1.73 (Normal) eGFR If NonAfricn Am 108 mL/min/1.73 (Normal) Creatinine, Serum 0.61 mg/dL (Normal) Range: 0.57-1.00 BUN 8 mg/dL (Normal) Range: 6-24 Glucose, Serum 90 mg/dL (Normal) Range: 65-99 89-Otq-497495:41 SONI CULTURE-OTHER (34223) Comments: PATIENT NOT FASTINGPERFORMED BY: [facility] [id number] Information: SRC:TH Result 1 RRF (Normal) Comments: Routine respiratory anali Upper Respiratory Culture Final report (Normal) 62-Fme-05528:05 PAP I-G HPV Hi Risk Comments: CYTOLOGY INFORMATION:- CLINICAL INFORMATION:- DATE LMP/MENOPAUSE: LMP no information on requiredinformation.- COLLECTION VIAL: Thin Prep Vial- GROUND WORKER SOURCE: CERVICAL- COLLECTION TECHNIQUE: BRUSH ONLYSp ecimen Comment: [id number] Comment: No. of containers..01 CYTYC Thin Prep VialLabCorp (refer to report for specific site)refer to report for address and phone number HPV HC,HGH RISK Negative Comments: This high-risk HPV test detects thirteen high-risk types(16/18/31/33/35/39/45/51/52/56/58/59/68) withoutdifferentiation.Performed at: [address] [id number] (Normal) b Director: María Elena Jones MD, Phone: [phone] at: =[address] [id number] Director: María Elena Jones MD, Phone: [phone] PAPSMR Comment Comments: The Pap smear is a screening test designed to aid in thedetection of premalignant and malignant conditions of theuterine cervix. It is not a diagnostic procedure andshould not be used as the sole means (Normal) of detecting cervicalcancer. Both false-positive and false-negative reports dooccur. COMM . (Normal) TEST METHOD Comment Comments: This liquid based ThinPrep(R) pap test was screened withthe use of an image guided system. (Normal) Path prov. ICD9 Comment Comments: R87.5 (Normal) PERFORM Comment Comments: Karen Javier, Watchguard (ASCP) (Normal) ADEQ Comment Comments: Satisfactory for evaluation. Endocervical and/or squamous metaplasticcells (endocervical component) are present. (Normal) DIAGN Comment Comments: NEGATIVE FOR INTRAEPITHELIAL LESION AND MALIGNANCY.FUNGAL ORGANISMS MORPHOLOGICALLY CONSISTENT WITH RADHA SPECIES AREPRESENT.CELLULAR CHANGES ASSOCIATED WITH INFLAMMATION ARE PRESENT. (Normal) 67-Ilo-026571:38 Pathology Report Comments: PERFORMED BY: [facility] Laftu06755 [facility] [id number] Information: [id number] See MATER Comments: Material submitted: .SHAVE BX LT CHESTClinical history: .FOR MARGINS. ISK. Note (Normal) Diagnosis:.. -- BASAL CELL CARCINOMA; LATERAL AND DEEP MARGIN(S) APPEAR TO BE INVOLVED../03/19/2013 El ectronically signed: .Natalio Cid MD, PathologistGross description: .1 Container, formalin-filled, labeled with patient identification.SHAVE BX LT CHEST:Received in formalin labeled FAISAL HAYS is a holguin-yellow fragmentof skin measuring 0.4 x 0.4 x 0.1 cm.The margin is marked with purpleink.It is bisected and submitt ed entirely in a single cassette./LMSLMS/LMSPathologist provided ICD-9:173.99, 173.81CPT .603759 8-Shz-648664:17 PAPIG3 Comments: Specimen Comment: No. of containers..01 CYTYC Thin Prep Vial tHPVHR Negative (Normal) Comments: This high-risk HPV test detects thirteen high-risk types(16/18/31/33/35/39/45/51/52/56/58/59/68) withoutdifferentiation..Performed at: [address] [id number] Director: Papi Lopez MD, Phone: [phone] at: =[address] [id number] Director: Papi Lopez MD, Phone: [phone] tPAPSMR Comment (Normal) Comments: The Pap smear is a screening test designed to aid in thedetection of premalignant and malignant conditions of theuterine cervix. It is not a diagnostic procedure andshould not be used as the sole means of detecting cervicalcancer. Both false-positive and false-negative reports dooccur.. tCOM2 . (Normal) tPAPIGTM Comment (Normal) Comments: This liquid based ThinPrep(R) pap test was screened withthe use of an image guided system. tQC Comment (Normal) Comments: Keyana Solis, Supervisory Watchguard (ASCP) tADEQ Comment (Normal) Comments: Satisfactory for evaluation. Endocervical and/or squamous metaplasticcells (endocervical component) are present. tPERFORM Comment (Normal) Comments: Fatemeh Nunez, Watchguard (ASCP) tDIAG Comment (Normal) Comments: NEGATIVE FOR INTRAEPITHELIAL LESION AND MALIGNANCY.THIS SPECIMEN WAS RESCREENED PART OF [employer] PROGRAM. :11 LIPID PANEL (79936) Comments: PATIENT WAS FASTINGPERFORMED BY: [facility] LightPending [facility] [id number] LDL/HDL Ratio 2.0 {ratio_units} (Normal) Range: 0.0-3.2 LDL Cholesterol Calc 115 mg/dL (Abnormal) Range: 0-99 HDL Cholesterol 58 mg/dL (Normal) Comments: According to ATP-III Guidelines, HDL-C >59 mg/dL is considered anegative risk factor for CHD. VLDL Cholesterol Orlin 18 mg/dL (Normal) Range: 5-40 Cholesterol, Total 191 mg/dL (Normal) Range: 100-199 Triglycerides 89 mg/dL (Normal) Range: 0-149 :11 Anti-TPO Antibody (79862) Comments: PATIENT WAS FASTINGPERFORMED BY: hiyalife70 [facility] [id number] Thyroid Peroxidase (TPO) Ab 7 {IU/mL} (Normal) Range: 0-34 :11 TSH (32883) Comments: PATIENT WAS FASTINGPERFORMED BY: [employer]sp[employer] Technologieslin6370 [facility] [id number] TSH 1.200 {uIU/mL} (Normal) Range: 0.450-4.500 :11 T4, FREE (THYROXINE) (09086) Comments: PATIENT WAS FASTINGPERFORMED BY: [facility] [id number] T4,Free(Direct) 1.10 ng/dL (Normal) Range: 0.82-1.77 :11 T3, FREE (TRIDOTHYRONINE) (09950) Comments: PATIENT WAS FASTINGPERFORMED BY: [facility]6370 [facility] [id number] Triiodothyronine,Free,Serum 2.8 pg/mL (Normal) Range: 2.0-4.4 :11 CBC WITH MANUAL DIFF Comments: PATIENT WAS FASTINGPERFORMED BY: [facility] [id number] Information: [id number] (50794) Immature Grans (Abs) 0.0 {x10E3/uL} (Normal) Range: 0.0-0.1 Immature Granulocytes 0 % (Normal) Range: 0-2 Baso (Absolute) 0.0 {x10E3/uL} (Normal) Range: 0.0-0.2 Eos (Absolute) 0.1 {x10E3/uL} (Normal) Range: 0.0-0.4 Monocytes(Absolute) 0.3 {x10E3/uL} (Normal) Range: 0.1-1.0 Lymphs (Absolute) 1.7 {x10E3/uL} (Normal) Range: 0.7-4.5 Neutrophils (Absolute) 3.5 {x10E3/uL} (Normal) Range: 1.8-7.8 Basos 1 % (Normal) Range: 0-3 Eos 2 % (Normal) Range: 0-7 Monocytes 6 % (Normal) Range: 4-13 Lymphs 30 % (Normal) Range: 14-46 Neutrophils 61 % (Normal) Range: 40-74 Platelets 209 {x10E3/uL} (Normal) Range: 140-415 RDW 13.3 % (Normal) Range: 12.3-15.4 MCHC 33.4 g/dL (Normal) Range: 31.5-35.7 MCH 31.3 pg (Normal) Range: 26.6-33.0 MCV 94 fL (Normal) Range: 79-97 Hematocrit 40.7 % (Normal) Range: 34.0-46.6 Hemoglobin 13.6 g/dL (Normal) Range: 11.1-15.9 RBC 4.34 {x10E6/uL} (Normal) Range: 3.77-5.28 WBC 5.6 {x10E3/uL} (Normal) Range: 4.0-10.5 59-Haf-81190:11 METABOLIC PANEL, COMPREHENSIVE Comments: PATIENT WAS FASTINGPERFORMED BY: LabCoNew [facility] Medical CenterLkxdvc5804 [facility] [id number] (07935) ALT (SGPT) 10 [iU]/L (Normal) Range: 0-32 AST (SGOT) 12 [iU]/L (Normal) Range: 0-40 Alkaline Phosphatase, S 44 [iU]/L (Normal) Range: 42-107 Bilirubin, Total 0.8 mg/dL (Normal) Range: 0.0-1.2 A/G Ratio 2.1 (Normal) Range: 1.1-2.5 Globulin, Total 2.1 g/dL (Normal) Range: 1.5-4.5 Albumin, Serum 4.4 g/dL (Normal) Range: 3.5-5.5 Protein, Total, Serum 6.5 g/dL (Normal) Range: 6.0-8.5 Calcium, Serum 9.0 mg/dL (Normal) Range: 8.7-10.2 Carbon Dioxide, Total 21 mmol/L (Normal) Range: 19-28 Chloride, Serum 105 mmol/L (Normal) Range: 97-108 Potassium, Serum 4.3 mmol/L (Normal) Range: 3.5-5.2 Sodium, Serum 138 mmol/L (Normal) Range: 134-144 BUN/Creatinine Ratio 13 (Normal) Range: 9-23 eGFR If Africn Am 119 mL/min/1.73 (Normal) eGFR If NonAfricn Am 103 mL/min/1.73 (Normal) Creatinine, Serum 0.71 mg/dL (Normal) Range: 0.57-1.00 BUN 9 mg/dL (Normal) Range: 6-24 Glucose, Serum 91 mg/dL (Normal) Range: 65-99 :11 Vitamin D Hydroxy (81519) Comments: PATIENT WAS FASTINGPERFORMED BY: [facility] Owycdh3094 [facility] [id number] Vitamin D, 25-Hydroxy 34.1 ng/mL (Normal) Range: 30.0-100.0 Comments: Vitamin D deficiency has been defined by the [place] ofMedicine and an Endocrine Society practice guideline as alevel of serum 25-OH vitamin D less than 20 ng/mL (1,2).The Endocrine Society went on to further define vitamin Dinsufficiency as a level between 21 and 29 ng/mL (2).1. IOM ([place] of Medicine). 2010. Dietary reference intakes for calcium and D. [place]: The National Academies Press.2. Nicole MF, Dakotah IZAGUIRRE, Ra CESPEDES, et al. Evaluation, treatment, and prevention of vitamin D deficiency: an Endocrine Society clinical practice guideline. JCEM. 2010; 96(7):1911-30. :11 PARATHORMONE (14091) Comments: PATIENT WAS FASTINGPERFORMED BY: LabCoNew [facility] Medical CenterOxhlgb8829 [facility] [id number] PTH, Intact 25 pg/mL (Normal) Range: 15-65 72-Kdd-268615:51 MRSAD tMRSA Negative (Normal) SOURCE: NASAL SWAB (Normal) 0-Jbf-139574:27 THYROID Radiology Report See Note (Normal) Comments: PROCEDURE: THYROID ULTRASOUND REASON FOR EXAM: Female, 46 years old. Thyroid nodule. TECHNIQUE: Ultrasound evaluation of the thyroid was performed withreal-time and static gibbs-scale imaging. COM PARISON: Comparison is made with prior study dated June 05, 2009. FINDINGS: RIGHT LOBE: The right lobe of the thyroid gland is enlarged and measures5.5 cm x 1.7 cm by 1.8 cm. There is a homogeneo us echotexture. Thereareno demonstrated solid, cystic or complex lesions. LEFT LOBE: The left lobe of the thyroid gland is enlarged and measures6.7cm x 2.2 cm by 2.1 cm. There is a heterogeneous ech otexture. There isevidence of a single large, lobulated, soft tissue nodule in the inferioraspect of the thyroid. This measures 3.9 cm x 2.2 cm x 1.4 cm.. This isessentially unchanged. ISTHMUS: The isthmus measures 1.7 mm. IMPRESSION:Enlarged thyroid with stable solid nodule in the inferior portion of theleft lobe. Signed:Sergio Young M.D.January 28, 2012 at 3:57:09 PM [id number] nically Signed GP/GP If you are the referring physician and would like to consult with theradiologist who provided this interpretation, please contact Kosta Cifuentes at [phone]. If this ra diologist is unavailable, youwill be directed to another radiologist to assist. If you are a patient with a question regarding this report, pleasecontactyour referring physician directly. Professional I nterpretation Provided By: [address], Phone , These documents contain legally protected and confidential healthinformation intended only for the use of the individual or entity namedabove. If you are not the intended recipient, you are hereby notifiedthatany disclosure, copying, distribution, or other use of these documents isstrictly prohibited. If you have received th is information in error,pleasenotify the sender immediately and arrange for the return or destructionofthese documents. Dictated on 01/28/12 0944 by Babak Young MDranscribed on 01/28/12 1603 by ITS IMPORTSign by Sergio Young MD on 01/28/12 1604 Sign by: Sergio Young MD 05-Hnu-21730:44 Pathology Report Comments: PERFORMED BY: KWCYT [facility]74584 [facility] [id number] BY: [facility] [address] [id number] Clinical Inf ormation: [id number] See MATER Comments: Material submitted: .PUNCH BIOPSYY OF LEFT BACK SHOULDERClinical history: .IRRITATED MOLEFAST GROWING CRUSTY MOL Note (Normal) EFOR MARGINSDiagnosis:INFLAMED AND IRRITATED SEBORRHEIC KERATOSIS.NCK/10/24/2011 Electronically signed: .Kat Low MD, DermatopathologistGross description: .RECEIVED IN F ORMALIN LABELED FAISAL HAYS WITHOUT SITEIDENTIFIED ON THE CONTAINER DESIGNATED LEFT BACK SHOULDER ON THEREQUISITION IS A HOLGUIN/BROWN SKIN PUNCH MEASURING 0.4 CM INDIAMETER EXCISED TO A DEPTH OF 0.7 CM. THE SPECIMEN IS INKEDBLACK AT THE MARGIN, BISECTED AND ENTIRELY SUBMITTED..APA/JASPathologist provided ICD-9:702.11CPT .521240 18-Kcr-549998:29 Urinalysis, Office (09340) UA - BILIRUBIN Negative (Normal) UA - BLOOD Hemolyzed Moderate (Normal) UA - GLUCOSE Negative (Normal) UA - KETONES Negative mg/dL (Normal) UA - LEUKOCYTE ESTERASE Moderate (Normal) UA - NITRITE Negative (Normal) UA - PH 6.0 (Normal) UA - PROTEIN Negative mg/dL (Normal) UA - SPECIFIC GRAVITY 1.025 (Normal) URINE UROBILINGN MURIEL TIMED Normal mg/dL (Normal) 0-Nug-984019:26 HCV Antibody Comments: PERFORMED BY: [facility]6370 [facility] [id number] Hep C Virus Ab <0.1 {s/co_ratio} Range: 0.0-0.9 (Normal) Comments: Negative: < 0.8Indeterminate 0.8 - 0.9Positive: > 0.9.In order to reduce the incidence of a false positiveresult, the CDC recommends that all s/co ratiosbetween 1.0 and 10.9 be confirmed with additionalRIBA or PCR testing. : Hep B Surface Ab 0.59 {Index_Value} Comments: PERFORMED BY: [facility] [id number] 26 (Normal) Range: 0.00-0.99 Comments: Status of Immunity Anti-HBs Level Inconsistent with Immunity 0.00 - 0.99Consistent with Immunity >0.99.An Index Value of 1.00 is equivalent to 10 mIU/mL.However the magnitude of the Index Value is notindicative of the total amount of antibody present. :26 Panel [id number] Comments: PERFORMED BY: [facility] [id number] HIV 1/O/2 Abs, Qual Non Reactive (Normal) HIV 1/O/2 Abs-Index Value <1.00 (Normal) Comments: Index Value: Specimen reactivity relative to the negative cutoff. 76-Sey-047344:15 URINE SONI CULTURE-MURIEL COL Comments: PATIENT NOT FASTINGPERFORMED BY: hiyalife70 [facility] [id number] Information: SRC: [id number] COUNT (27442) Antimicrobial MIHEAD (Normal) Comments: S = Susceptible; I = Intermediate; R = Resistant P = Positive; N = NegativeMICS are expressed in micrograms per mLAntibiotic RSLT#1 RSLT#2 RSLT#3 RSLT#4Am oxicillin/Cl Susceptibility avulanic Acid IAmpicillin RCefepime SCeftriaxone SCefuroxime SCephalothin SCiprofloxacin SESBL NGentamicin SImipenem SLevofloxacin SNitrofurantoin SPiperacillin/Tazobactam Sunitha tracycline STobramycin STrimethoprim/Sulfa S Result 1 Escherichia coli Comments: 25,000-50,000 colony forming units per mL (Normal) Urine Final report (Normal) Culture,Comprehensive 37-Skp-88609:16 Urinalysis, Office (35587) UA - LEUKOCYTE ESTERASE Moderate (Normal) UA - NITRITE Negative (Normal) URINE UROBILINGN MURIEL TIMED Normal mg/dL (Normal) UA - PROTEIN Trace mg/dL (Normal) UA - PH 6.0 (Normal) UA - BLOOD Hemolyzed Large (Normal) UA - SPECIFIC GRAVITY 1.005 (Normal) UA - KETONES Negative mg/dL (Normal) UA - BILIRUBIN Negative (Normal) UA - GLUCOSE Negative (Normal) 70-Iec-444107:37 SPINE,LUMBAR (ROUTINE) Radiology Report See Note (Normal) Comments: Exam Number: [id number] CLINICAL: Low back pain since April, severe left leg pain one month MRI LUMBAR SPINE WITHOUT CONTRAST Comparison: No comparison studies are available. The examinatio n was perfor med without the intravenous administrationof contrast. FINDINGS: Normal conus medullaris terminates at L1. No intraduralextramedullary lesions. T11- L2: Sagittal series - Normal disk spaces. Patent can al andforamina. L2-3: Series 7 image 18 - Normal disc hydration with preservation ofthe disc space height. There is no endplate spondylosis. Mild leftmore than right facet arthrosis. Normal central c anal, lateralrecesses and intervertebral neural foramina. L3-4: Image 13 - Normal disc hydration with preservation of the discspace height. There is no endplate spondylosis. Mild/moderatebilateral fac et arthrosis. Normal central canal, lateral recessesand intervertebral neural foramina. L4-5: Image 8 - mild degenerative disc and mild/moderatedegenerative facet change, bulge and dorsal annular fissu re, 4-mm APby 19-mm ML. Patent canal and foramina. L5-S1: Image 3 - moderate to severe degenerative disc and moderatedegenerative facet change, bulge and large left paracentral discherniation, 9-mm AP by 14-mm ML, with left S1 nerve root compressionin the lateral recess. Moderate canal stenosis ,10 mm, with patentright lateral recess and mild/moderate bilateral foraminal stenosis. Normal lumbar lord osis without spondylolisthesis or spondylolysis. Normal marrow signal. There are no infiltrative or destructiveprocesses of the vertebrae. There is no paraspinous soft tissue abnormality. IMPRESSION:L4 -5 degenerative change and annular fissure without stenosis. L5-S1 degenerative change with large left paracentral discherniation with left S1 nerve root compression. Otherwise, normal MRI of the Lumbar spine. Specifically, no discherniation, canal or foraminal stenosis at any other level. Reported By: HIPOLITO SCOTT M.D. 52-Tbt-[id number] BILAT SCRN IMPLANT DIG & CAD Radiology Report See Note (Normal) Comments: Exam Number: [id number] MAMMOGRAM, BILATERAL SCREENING IMPLANT DIGITAL AND CAD HISTORYRoutine screening. TECHNIQUEFull field digital images were obtained in mediolateral oblique andcraniocaudal projectio ns both including and excluding the patient'simplants. CAD images were reviewed. No previous study is available for a comparison. FINDINGSThere is moderately dense fibroglandular parenchyma present. T here isno skin thickening or retraction, architectural distortion, or clusterof suspicious microcalcifications. There are low-lying lymph nodes onboth sides. If there is no suspicious palpable abnorma lity, followupmammogram in 1 year is recommended. IMPRESSIONThere is no radiographic evidence of malignancy identified. FINAL ASSESSMENTBenign findings. BIRADS Category 2. A letter regarding these resu lts has been sent to the patient. This interpretation was rendered by a radiologist certified under theMammography Quality Standards Act of 1992 (MQSA). The mammograms werealso examined with computer-a ided detection software ([employer], [employer] Reported By: ESTEBAN VALERA M.D. [id number] THYROID (HP) Radiology Report See Note (Normal) Comments: Exam Number: [id number] THYROID ULTRASOUND HISTORYThyromegaly. High resolution real-time linear images were obtained. No previousstudy is available for comparison. The thyroid lobes are enlarged.The r ight thyroid lobe measures 5.5 x 1.4 x 1.6 cm. The left thyroidlobe measures 6.1 x 1.8 x 1.8 cm. The isthmus is normal at 3-mm. The right thyroid lobe is homogeneous in echotexture without anidentifi able focal nodule. There is a very heterogeneous echo pattern to the lower two-thirds ofthe left thyroid lobe. The technologist's images measure this areaof abnormality as 2 adjacent nodules. In th e inferior left thyroidlobe the nodule is measured at 2.2 x 1.3 x 1.7 cm. In the midthyroid lobe the nodule is measured at 1.9 x 1.3 x 1.7 cm. It isalso possible that this represents a single large lobulatedheterogeneous mass involving the inferior aspect of the left thyroidlobe. This would measure 4 x 2.5 x 1.7 cm. This is a dominant massand surgical evaluation is recommended. IMPRESSION1) Michael th thyroid lobes are enlarged.2) No focal lesion is seen on the right.3) There area 2 adjacent heterogeneous nodules in the mid andinferior aspect of the left thyroid lobe. These 2 lobulated areas o fheterogeneous echotexture could also represent a single noduleinvolving approximately the lower two-thirds of the thyroid lobe.Because of the dominant area of abnormal echogenicity, surgicalevaluation is suggested by 1.5 x 1.7 cm in size. The mass or massesin the inferior aspect of the left thyroid lobe area dominant finding.If further radiographic evaluation of this abnormality is warrantedclinical ly, a nuclear medicine thyroid scan could be performed. Reported By: ESTEBAN VALERA M.D. [id number] Hepatic Function Panel (7) Comments: PATIENT WAS FASTINGPERFORMED BY: [facility] [facility] [id number] Albumin, Serum 4.6 g/dL (Normal) Range: 3.5-5.5 Alkaline Phosphatase, S 50 [iU]/L (Normal) Range: 25-150 ALT (SGPT) 13 [iU]/L (Normal) Range: 0-40 AST (SGOT) 14 [iU]/L (Normal) Range: 0-40 Bilirubin, Direct 0.15 mg/dL (Normal) Range: 0.00-0.40 Bilirubin, Total 0.6 mg/dL (Normal) Range: 0.1-1.2 Protein, Total, Serum 6.8 g/dL (Normal) Range: 6.0-8.5 11-Ahb-534527:52 ABDOMEN COMPLETE Radiology Report See Note (Normal) Comments: Exam Number: [id number] COMPLETE ABDOMINAL ULTRASOUND HISTORYAbdominal pain. High resolution real-time sector images were obtained. Thegallbladder appears mildly contracted. The gallbladder wall is upp ernormal in thickness. There are no stones demonstrated. The commonduct is normal at 3 mm. The liver is homogeneous. There are nodilated intrahepatic ducts identified. Pancreatic body and head edison een and are unremarkable. The aorta was demonstrated in sagittalview only. The proximal aorta measured 1.8 cm. The mid aortameasures 1.4 cm. The distal aorta measured 1.4 cm. The aorta couldnot be adequately visualized in transverse projection. Thebifurcation and proximal iliac arteries are not seen. The rightkidney measures 11.6 x 4.2 x 5.5 cm. The left kidney nbuyukfe04.4 x 6.1 x 5.2 cm. Th ere is no hydronephrosis. There is no solidor cystic mass identified. The spleen is within normal limitsmeasuring 11.5 cm in length. IMPRESSION1. The pancreatic tail and much of the aorta is obscured by bowel gas.2. The liver, gallbladder, and biliary ducts are within normal limits.3. There is no renal abnormality.4. The spleen is normal. Reported By: ESTEBAN VALERA M.D. [id number]-[id number] CBC, Platelets & Auto Diff Comments: PATIENT NOT FASTINGClinical Information: ADD DARW FEE [id number] ADD [id number] [id number] PERFORMED BY: [facility] [id number] ([id number]) Baso (Absolute) 0.1 {x10E3/uL} (Normal) Range: 0.0-0.2 Basos 1 % (Normal) Range: 0-3 Eos 3 % (Normal) Range: 0-7 Eos (Absolute) 0.2 {x10E3/uL} (Normal) Range: 0.0-0.4 Hematocrit 38.7 % (Normal) Range: 34.0-44.0 Hemoglobin 13.6 g/dL (Normal) Range: 11.5-15.0 Lymphs 36 % (Normal) Range: 14-46 Lymphs (Absolute) 1.9 {x10E3/uL} (Normal) Range: 0.7-4.5 MCH 32.7 pg (Normal) Range: 27.0-34.0 MCHC 35.2 g/dL (Normal) Range: 32.0-36.0 MCV 93 fL (Normal) Range: 80-98 Monocytes 5 % (Normal) Range: 4-13 Monocytes(Absolute) 0.3 {x10E3/uL} (Normal) Range: 0.1-1.0 Neutrophils 55 % (Normal) Range: 40-74 Neutrophils (Absolute) 2.9 {x10E3/uL} (Normal) Range: 1.8-7.8 Platelets 255 {x10E3/uL} (Normal) Range: 140-415 RBC 4.17 {x10E6/uL} (Normal) Range: 3.80-5.10 RDW 13.8 % (Normal) Range: 11.7-15.0 WBC 5.3 {x10E3/uL} (Normal) Range: 4.0-10.5 80-Hkh-228910:56 Metabolic Panel, Comprehensive Comments: PATIENT NOT FASTINGPERFORMED BY: [facility] Dmosyp8858 [facility] [id number] ([id number]) A/G Ratio 1.9 (Normal) Range: 1.1-2.5 Albumin, Serum 4.4 g/dL (Normal) Range: 3.5-5.5 Alkaline Phosphatase, S 49 [iU]/L (Normal) Range: 25-150 ALT (SGPT) 14 [iU]/L (Normal) Range: 0-40 AST (SGOT) 12 [iU]/L (Normal) Range: 0-40 Bilirubin, Total 0.6 mg/dL (Normal) Range: 0.1-1.2 BUN 10 mg/dL (Normal) Range: 5-26 BUN/Creatinine Ratio 13 (Normal) Range: 8-27 Calcium, Serum 9.0 mg/dL (Normal) Range: 8.5-10.6 Carbon Dioxide, Total 25 mmol/L (Normal) Range: 20-32 Chloride, Serum 103 mmol/L (Normal) Range: 96-109 Creatinine, Serum 0.8 mg/dL (Normal) Range: 0.5-1.5 Globulin, Total 2.3 g/dL (Normal) Range: 1.5-4.5 Glucose, Serum 94 mg/dL (Normal) Range: 65-99 Potassium, Serum 4.2 mmol/L (Normal) Range: 3.5-5.5 Protein, Total, Serum 6.7 g/dL (Normal) Range: 6.0-8.5 Sodium, Serum 138 mmol/L (Normal) Range: 135-148 67-Jxn-620230:56 Lipid Panel ([id number]) Comments: PATIENT NOT FASTINGPERFORMED BY: [facility]Tkprol6[facility] [id number] Cholesterol, Total 176 mg/dL (Normal) Range: 100-199 Comment SPRCS (Normal) Comments: HDL cholesterol values >59 mg/dL are associated with reduced cardiacrisk. HDL Cholesterol 67 mg/dL (Abnormal) Range: 40-59 LDL Cholesterol Calc 94 mg/dL (Normal) Range: 0-99 LDL/HDL Ratio 1.4 {ratio_units} (Normal) Range: 0.0-3.2 Triglycerides 74 mg/dL (Normal) Range: 0-149 VLDL Cholesterol Orlin 15 mg/dL (Normal) Range: 5-40 38-Szf-575370:56 HELICOBACTER PYLORI ANTIBODY Comments: PATIENT NOT FASTINGPERFORMED BY: [facility] [id number] ([id number]) H. pylori IgG, Abs <0.9 U/mL (Normal) Range: 0.0-0.8 Comments: Negative <0.9 Indeterminate 0.9 - 1.0 Positive >1.0 Plan of Care Name Dates Details Instructions Ruptured right breast implant : Eprescribed prescriptions (G8553) Indication: Ruptured right breast implant BMI 26.0-26.9,adult : Eprescribed prescriptions (G8553) Indication: BMI 26.0-26.9,adult [facility] : Eprescribed prescriptions (G8553) Indication: [facility] Well woman exam : *Well Female Maintenance (SMC) Indication: Well woman exam Well woman exam : Pap/Pelvic/Bimanual/Rectal/Breast Exam was done. Indication: Well woman exam Well woman exam : Eprescribed prescriptions (G8553) Indication: Well woman exam Keratosis : Anesthesia - Lido with Epi Indication: Keratosis Keratosis : Shave Biopsy with Epi Indication: Keratosis Well woman exam : Pap Test (Cervical Smear) *: cervical cancer Indication: Well woman exam Well woman exam : Self breast exam Indication: Well woman exam Well woman exam : *Well Female Maintenance (KF) Indication: Well woman exam Well woman exam : Pap/Pelvic/Bimanual/Rectal/Breast Exam was done. Indication: Well woman exam Benign neoplasm of skin : Punch Biopsy with Epi Indication: Benign neoplasm of skin Acute sinusitis : *Antibiotic Usage Education - Female Indication: Acute sinusitis Planned Observations Metabolic Panel, Comprehensive (19854)Indication: Jaundice On: :05 Request HEPATIC FUNCTION PANEL (76219)Indication: Jaundice On: :05 Request Lyme Disease Antibody W/ Reflex (47215)Indication: Tick bite On: 56-Omp-552742:04 Request Comments: 6 months PARATHORMONE (86925)Indication: Family history of hyperparathyroidism On: :45 Request Vitamin D Hydroxy (60023)Indication: Vitamin D deficiency On: :45 Request HPV automatic (40435)Indication: Screening for HPV (human papillomavirus) (Renamed from Encounter for screening for human papillomavirus (HPV)) On: 63-Hki-425019:24 Request Thin prep Pap (67135) (no STD testing)Indication: Well woman exam On: 87-Tip-814165:02 Request HPV automatic (32722)Indication: Screening for HPV (human papillomavirus) On: 6-Thf-840277:37 Request Thin prep Pap (67200)Indication: Well woman exam On: 6-Xyn-539603:37 Request MRSA Culture (71334)Indication: Unspecified open wound of other finger without damage to nail, initial encounter On: :53 Request LIPID PANEL (96963)Indication: xanthelasma On: :29 Request CBC WITH MANUAL DIFF (19872)Indication: Anemia On: :29 Request T3, FREE (TRIDOTHYRONINE) (52481)Indication: Thyroid nodule On: :29 Request T4, FREE (THYROXINE) (76313)Indication: Thyroid nodule On: :29 Request Anti-TPO Antibody (18711)Indication: Thyroid nodule On: 02-Egj-029433:29 Request TSH (51605)Indication: Thyroid nodule On: 05-Djv-415054:28 Request URINALYSIS (43830)Indication: Urinary frequency On: 58-Suj-466758:30 Request Planned Procedures ESOPHAGRAM (69339)By: Fast DO, Jovana On: 13-Mar-2018 Intent A Fast DO, Jovana A Comments: with 12 mm tablet MAMMOGRAM BREAST BILATERAL SCREENING On: 27-Feb-2018 Intent DIGITAL ([id number])By: Fast DO, Jovana A Fast DO, Jovana A CT - Abdomen (IV Contrast Needed)By: On: 09-Feb-2018 Intent Fast DO, Jovana A Fast DO, Jovana A Ultrasound - ThyroidBy: Fast DO, On: 14-Nov-2017 Intent Jovana A Fast DO, Jovana A ULTRASOUND, RIGHT BREAST (32570)By: On: 06-Nov-2017 Intent Louisa Pantoja Holter Monitor 24 hrsBy: Fast DO, On: 19-Jul-2016 Intent Jovana A Fast DO, Jovana A Echo CompleteBy: Fast DO, Jovana A On: 19-Jul-2016 Intent Fast DO, Jovana A EsophagramBy: Fast DO, Jovana A Fast On: 19-Jul-2016 Intent DO, Jovana A Comments: with 11 mm tablet SCREENING DIGITAL TOMOSYNTHESIS OF On: 19-Jul-2016 Intent BREAST ([id number])By: Fast DO, Jovana A Fast DO, Jovana A EsophagramBy: Fast DO, Jovana A Fast On: 06-Nov-2015 Intent DO, Jovana A Comments: with 12 mm tablet Ultrasound - ThyroidBy: Fast DO, On: 20-Sep-2015 Intent Jovana A Fast DO, Jovana A MAMMOGRAM, SCREENING, BOTH BREAST On: 22-Feb-2015 Intent ([id number])By: Fast DO, Jovana A Fast DO, Jovana A Toradol Injection, 30 mg ([id number])By: On: 30-Nov-2014 Intent Tiffanie Cevallos CNP Comments: given [facility] rt BIOPSY OF SKIN LESION, SINGLE On: 15-Mar-2013 Intent ([id number])By: Tiffanie Cevallos CNP Breast Ultrasound - RightBy: Dhaval DO, On: 26-Feb-2013 Intent Jovana A Fast DO, Jovana A Eprescribed prescriptions (G8553)By: On: 03-Feb-2013 Intent Benita Gibbs MRI - BreastBy: Fast DO, Jovana A Fast On: 02-Dec-2012 Intent DO, Jovana A Comments: family hx of mother with breast cancer breast lump- silicone implants and dense breast on mammo Breast Diagnostic - BilateralBy: Fast On: 24-Jan-2012 Intent DO, Jovana A Fast DO, Jovana A Breast Ultrasound - LeftBy: Fast DO, On: 14-Jan-2012 Intent Jovana A Fast DO, Jovana A Ultrasound - ThyroidBy: Fast DO, On: 14-Jan-2012 Intent Jovana A Fast DO, Jovana A Solu -Medrol Injection, 125 mg On: 12-Aug-2011 Intent ([id number])By: Jalyn Lara MD Comments: Injection given in right gluteus lewis. OBYR Toradol Injection, 30 mg (J1885)By: On: 04-Sep-2009 Intent Tiffanie Cevallos CNP Comments: given left glut lot #[id number] exp Feb 05 Toradol Injection, 30 mg ([id number])By: On: 29-Jun-2009 Intent Tiffanie Cevallos CNP Ultrasound - ThyroidBy: Fast DO, On: 30-May-2009 Intent Jovana A Fast DO, Jovana A UGI (With air contrast if On: 25-May-2007 Intent necessary)By: Tiffanie Cevallos CNP Ultrasound - GallbladderBy: Ciesa On: 25-May-2007 Intent Tiffanie GUEVARA Ultrasound - Abdomen CompleteBy: On: 25-May-2007 Intent Tiffanie Cevallos CNP Planned Medications INJECTION, KETOROLAC TROMETHAMINE, PER 15 MG Ordered: 30-Nov-2014 Pending Tiffanie Cevallos CNP INJECTION, METHYLPREDNISOLONE SODIUM SUCCINATE, UP TO 125 MG Ordered: 12-Aug-2011 Pending Jalyn Lara MD Instructions Name Dates Details Ruptured right breast implant : How to access health information online Indication: Ruptured right breast implant Ruptured right breast implant : How to access health information online - Detail Indication: Ruptured right breast implant Ruptured right breast implant : Patient Instructions Indication: Ruptured right breast implant BMI 26.0-26.9,adult : How to access health information online Indication: BMI 26.0-26.9,adult BMI 26.0-26.9,adult : How to access health information online - Detail Indication: BMI 26.0-26.9,adult BMI 26.0-26.9,adult : Patient Instructions Indication: BMI 26.0-26.9,adult [facility] : How to access health information online Indication: [facility] : How to access health information online - Detail Indication: [facility] : lab and fo Indication: [facility] Well woman exam : How to access health information online Indication: Well woman exam Well woman exam : How to access health information online - Detail Indication: Well woman exam Well woman exam : Patient Instructions Indication: Well woman exam Breast pain : Patient Instructions Indication: Breast pain Encounters Office Visit On: 17-Mar-2018 14:37 Encounter Diagnosis: Dysphagia End: 23-Mar-2018 21:50 [facility] Office Visit On: 13-Mar-2018 13:38 Encounter Reason: Follow up tests - Date: (03/03 CT scan)., [ADDITIONAL REASON] Dysphagia - Note for Dysphagia: having trouble swallowing meat but worse this End: 15-Mar-2018 21:06 past year and choking- dad has the same and has to have strictures dilated rarely indigestion no gerd Encounter Diagnosis: Non-smoker, BMI 30.0-30.9,adult, Dysphagia, Ruptured right breast implant, Adrenal adenoma, left [facility] Phone Encounter On: 27-Feb-2018 9:34 Encounter Diagnosis: Encounter for screening mammogram for breast cancer (Renamed from Encounter for screening mammogram for malignant neoplasm of breast) End: 27-Feb-2018 9:37 [facility] Office Visit On: 09-Feb-2018 13:51 Encounter Diagnosis: Abdominal mass, RUQ (right upper quadrant) End: 09-Feb-2018 13:54 [facility] Phone Encounter On: 08-Dec-2017 9:29 Encounter Diagnosis: PVC (premature ventricular contraction) End: 08-Dec-2017 9:57 [facility] Office Visit On: 14-Nov-2017 12:49 Encounter Diagnosis: Thyroid nodule End: 14-Nov-2017 12:54 [facility] Office Visit On: 06-Nov-2017 13:34 Encounter Diagnosis: Breast lump End: 06-Nov-2017 15:19 [facility] Annotation/Addendum On: 24-Jun-2017 12:39 Encounter Diagnosis: Jaundice End: 24-Jun-2017 12:41 [facility] Annotation/Addendum On: 20-Jun-2017 14:04 Encounter Diagnosis: Jaundice End: 20-Jun-2017 14:06 [facility] Phone Encounter On: 01-May-2017 16:29 [facility] End: 01-May-2017 16:31 Phone Encounter On: 30-Apr-2017 10:01 Encounter Diagnosis: Cough End: 30-Apr-2017 10:03 [facility] Phone Encounter On: 27-Mar-2017 12:11 [facility] End: 27-Mar-2017 12:14 Nurse Visit (Non-Billalbe) On: 28-Nov-2016 13:01 Encounter Diagnosis: BMI 30.0-30.9,adult End: 28-Nov-2016 13:05 [facility] Office Visit On: 23-Oct-2016 14:40 Encounter Reason: Insect Bite/Sting - Symptoms include single bite or sting. Symptoms are located on the abdomen (left groin, underwear line area). Onset was sudden hour(s) ago. The patient describes this as resolved (go End: 24-Oct-2016 21:38 t the bug out). Associated symptoms do not include localized rash, generalized itching, fever or abdominal pain. The patient is not currently being treated for this problem. Note for Insect bite/sting : Pt found a small black tick on the left side of groin area while showering this am. She got it out, including its head. Redness around bite, mild tenderness. wonders if has caused another areaEncounter Diagnosis: Non-smoker, BMI 26.0-26.9,adult, Tick bite [facility] Phone Encounter On: 07-Oct-2016 12:26 Encounter Diagnosis: Bronchitis End: 07-Oct-2016 12:27 [facility] Office Visit On: 19-Jul-2016 7:38 Encounter Reason: Physical female exam - General health: feels well with minor complaints (right foot pain), has good energy level and is sleeping well. The patient's appetite is normal. Nutrition: appropriate balanced d End: 09-Aug-2016 12:11 iet. Exercises 0 days per week. Sleeps on average 9 hours per night. Normal bowel and bladder habits. Safety measures include appropriate use of safety belts and home smoke detectors. There are no curre nt emotional problems. Note for Physical exam: [facility]- ??still with dysphagia couple times a month things get caught - dad had stricture stretched- she back on diet and got 4 pounds o ff- she had slacked off with respect to exercise she thinks too many calories- - mood good working on marriage and feels like - she is working on cutting back etoh intake as well, [ADDITIONAL REASON] Follow up tests - Diagnostic tests include other (labs). Date: (05/2016). , [ADDITIONAL REASON] Foot Problem - Symptoms include foot pain, while symptoms do not include foot sw elling or foot numbness. Symptoms are located in the right foot. Onset was gradual 3 month(s) ago. The symptoms occur intermittently. The patient describes symptoms as unchanged. Note for Foot problem : right lateral foot and right medial ankle- she wonders if nerve- - throbbing- sometimes wakes up with that- stopped going barefoot- doesnt hurt to step down- worse at night or barefoot- -sneakers help - Encounter Diagnosis: [facility] , Non-smoker, BMI 28.0-28.9,adult, Encounter for screening mammogram for breast cancer (Renamed from Encounter for screening mammogram for malignant neoplasm of breast), Other dysphagia, Chronic foot pain, right, Family history of hyperparathyroidism , Vitamin D deficiency, PVC, OTHER PREMATURE BEATS (427.69), Anxiety (300.00) [facility] Lab Order On: 05-Jun-2016 12:07 Encounter Diagnosis: Anemia, Migraine End: 05-Jun-2016 12:11 [facility] Annotation/Addendum On: 30-Jan-2016 13:10 Encounter Diagnosis: Ulcer mouth End: 30-Jan-2016 13:14 [facility] Phone Encounter On: 29-Jan-2016 11:47 [facility] End: 29-Jan-2016 11:48 Prescription Refill On: 25-Jan-2016 12:42 Encounter Diagnosis: Mouth sore End: 25-Jan-2016 12:48 [facility] Historical Summary On: 24-Jan-2016 13:45 Encounter Diagnosis: Sore throat End: 24-Jan-2016 13:49 [facility] Office Visit On: 06-Nov-2015 15:56 Encounter Reason: Well Women Exam - The patient feels well with no complaints, has good energy level and is sleeping well. Pap smear: history of abnormal pap (years ago) and date of last pap: (11/2012). Contraceptive hist End: 07-Nov-2015 22:57 ory: The patient is not using any method of contraception at this time. Patient exercises a weekly. The patient's libido is normal. The patient reports that she performs monthly self breast exam. Calciu m intake includes 1 serving milk daily. Previous evaluations: cervical treatment (unspecified) (leap procedure). The patient denies the use of oral contraceptives or hormone replacement therapy. breast cancer in first degree relative (mother). Menstruation: Last menstrual period date: (3 weeks ago). Note for Well Women Exam: reviewed thyroid us stillissues swallowing comes and goes- , [ADDITIONAL REASON] Follow up tests - Diagnostic tests include ultrasound (thyroid). Date: (10/06/15). Encounter Diagnosis: Well woman exam, Non-smoker, Other dysphagia, Screening for HPV (human papillomavirus) (Renamed from Encounter for screening for human papillomavirus (HPV)), Candidiasis [facility] Office Visit On: 20-Sep-2015 12:45 Encounter Diagnosis: Thyroid nodule (241.0) End: 20-Sep-2015 12:46 [facility] Office Visit On: 22-Feb-2015 10:50 Encounter Diagnosis: Encounter for screening mammogram for breast cancer (Renamed from Encounter for screening mammogram for malignant neoplasm of breast) End: 22-Feb-2015 10:50 [facility] Annotation/Addendum On: 30-Nov-2014 11:48 Encounter Diagnosis: Migraine End: 30-Nov-2014 11:55 [facility] Phone Encounter On: 14-Oct-2014 16:04 Encounter Diagnosis: Candidiasis End: 14-Oct-2014 16:08 [facility] Office Visit On: 08-Jun-2014 11:29 Encounter Diagnosis: Shingles End: 08-Jun-2014 11:31 [facility] Office Visit On: 31-Aug-2013 14:25 Encounter Diagnosis: Obesity End: 31-Aug-2013 14:32 [facility] Office Visit On: 30-Jul-2013 10:19 Encounter Diagnosis: Obesity End: 01-Aug-2013 18:20 [facility] Office Visit On: 01-Jul-2013 13:43 Encounter Diagnosis: Obesity End: 02-Jul-2013 14:52 [facility] Annotation/Addendum On: 30-Mar-2013 16:46 Encounter Diagnosis: Unspecified Diagnosis End: 30-Mar-2013 16:53 [facility] Office Visit On: 15-Mar-2013 13:51 Encounter Reason: Skin Lesions - The last clinic visit was month(s) ago. Symptoms include single skin lesion. Lesion(s) are located on the left trunk area. The patient describes the lesion(s) as itchy and raised. Onset was gradual. End: 15-Mar-2013 14:03 Encounter Diagnosis: Keratosis (701.1) [facility] Office Visit On: 26-Feb-2013 14:07 Encounter Diagnosis: Abnormal MRI, breast (793.89) End: 26-Feb-2013 14:08 [facility] Office Visit On: 03-Feb-2013 12:12 Encounter Reason: Breast pain - The onset of the breast pain has been sudden and has been occurring in a persistent pattern for days (2). The course has been decreasing. The breast pain is described as mild. The location End: 07-Feb-2013 18:41 of the pain is in the right subareola. The pain is described as burning and throbbing.Encounter Diagnosis: Breast pain (611.71), Folliculitis (704.8) [facility] Phone Encounter On: 04-Jan-2013 12:20 [facility] End: 04-Jan-2013 13:37 Office Visit On: 02-Dec-2012 12:21 Encounter Reason: Well Women Exam - The patient feels well with no complaints, has good energy level and is sleeping well. Pap smear: history of abnormal pap and date of last pap: (3 years ago). Contraceptive history: End: 03-Dec-2012 22:57 e patient is not using any method of contraception at this time. Patient exercises a weekly. The patient's libido is decreased. The patient reports that she performs monthly self breast exam. Calcium in take includes 2 serving(s) milk daily. Previous evaluations: cervical treatment (unspecified) (leap procedure). The patient denies the use of oral contraceptives or hormone replacement therapy. breast c ancer in first degree relative (mother). Menstruation: Last menstrual period date: (11/09/12).Encounter Diagnosis: Well Woman Exam (V72.31) (Pap,Mammo,Routine Female) (Renamed from Well Woman V72.31 (p,m)), SCREENING FOR HUMAN PAPILLOMAVIRUS (HPV) (V73.81), Breast Lump(611.72), Family history of hyperparathyroidism (V18.19), Anemia (285.9), Thyroid nodule (241.0), family hx of high chol, Gerd (530.81) [facility] Office Visit On: 13-Jul-2012 13:14 Encounter Diagnosis: Ear pain (388.70) End: 13-Jul-2012 13:19 [facility] Prescription Refill On: 02-Jul-2012 15:56 Encounter Diagnosis: Cerumen impaction (380.4) End: 02-Jul-2012 16:00 [facility] Historical Summary On: 15-Jun-2012 14:49 Encounter Diagnosis: OPEN WOUND OF FINGERS, WITHOUT MENTION OF COMPLICATION (883.0) End: 15-Jun-2012 14:53 [facility] Annotation/Addendum On: 05-Jun-2012 14:55 Encounter Diagnosis: Unspecified Diagnosis End: 05-Jun-2012 14:58 [facility] Prescription Refill On: 06-Apr-2012 16:27 Encounter Diagnosis: Herpes simplex type 1 infection (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) End: 06-Apr-2012 16:30 [facility] Office Visit On: 05-Feb-2012 15:26 Encounter Diagnosis: Thyroid nodule (241.0), Anemia (285.9), xanthelasma End: 05-Feb-2012 15:30 [facility] Phone Encounter On: 24-Jan-2012 11:01 Encounter Diagnosis: Breast Lump(611.72) End: 24-Jan-2012 11:04 [facility] Phone Encounter On: 14-Jan-2012 11:32 Encounter Diagnosis: Thyroid nodule (241.0), Breast Lump(611.72) End: 23-Jan-2012 12:52 [facility] Annotation/Addendum On: 21-Oct-2011 9:08 Encounter Diagnosis: Unspecified Diagnosis End: 21-Oct-2011 9:09 [facility] Annotation/Addendum On: 15-Oct-2011 16:46 Encounter Diagnosis: IRRITATED MOLE, BENIGN NEOPLASM OF SKIN (216.5) End: 15-Oct-2011 16:49 [facility] Phone Encounter On: 30-Sep-2011 17:25 Encounter Diagnosis: Anxiety (300.00) End: 30-Sep-2011 17:29 [facility] Office Visit On: 12-Aug-2011 14:19 Encounter Diagnosis: DISORDER, TONGUE NEC (529.8) End: 12-Aug-2011 17:12 [facility] Refill Request On: 05-Mar-2011 10:12 Encounter Diagnosis: Unspecified Diagnosis End: 05-Mar-2011 10:12 [facility] Prescription Refill On: 05-Mar-2011 8:57 Encounter Diagnosis: Unspecified Diagnosis End: 05-Mar-2011 8:58 [facility] Phone Encounter On: 23-Nov-2010 13:29 Encounter Diagnosis: SYMPTOM, FREQUENCY, URINARY (788.41) End: 23-Nov-2010 13:32 [facility] Office Visit On: 19-Jan-2010 9:10 Encounter Reason: UTI - The urinary symptoms are described as painful urination. The symptoms have been occurring for 1 weeks and have been increasing. The urine is described as milky. Encounter Diagnosis: SYMPTOM, FREQUENCY, URINARY (788.41) End: 19-Jan-2010 11:35 [facility] Historical Summary On: 13-Nov-2009 8:27 [facility] End: 13-Nov-2009 8:35 Office Visit On: 04-Sep-2009 17:08 Encounter Diagnosis: LOW BACK PAIN WITH RADICULOPATHY (724.4) End: 04-Sep-2009 17:09 [facility] Office Visit On: 28-Aug-2009 18:07 Encounter Diagnosis: LOW BACK PAIN WITH RADICULOPATHY (724.4) End: 28-Aug-2009 18:08 [facility] Office Visit On: 29-Jun-2009 16:35 Encounter Diagnosis: BACKACHE NOS (724.5) End: 29-Jun-2009 16:37 [facility] Historical Summary On: 31-May-2009 13:51 [facility] End: 31-May-2009 13:59 Office Visit On: 30-May-2009 12:09 Encounter Reason: Back pain - The onset of the pain has been gradual and has been occurring in an intermittent pattern for years. The course has been increasing. The pain is characterized as a dull ache (to stabbing with End: 31-May-2009 7:12 movement). The pain is described as being located in the lumbosacral area (tailbone). The pain radiates to the lateral aspect of left leg. The pain is precipitated by trauma (fell down a set of stairs 10 years ago- thinks could be from that). The symptoms are aggravated by exertion. The symptoms are relieved by anti-inflammatory use (aleve) and heat. The pain has been associated with chills ,leg weak ness and trauma (fell 10 years ago), while there has been no abdominal pain ,dysuria ,fever ,flank pain ,hip pain ,history of back surgery ,history of disc prolapse ,incontinence of stool ,incontinence of urine ,use of anti-coagulants or vaginal discharge. Note for Back pain: mom and uncle both had back surgeries- going on for 7 years- - fall down stairs in - fell on tailbone- then started gett ing muscle spasms when doing [employer] work--- - had therapy years ago- maybe 10- had gone to [facility] regularly- low back and left buttocks- heated seat in car helps- sitting makes worse and bending fo rward makes worse- going down left leg- buttocks pain severe--- -- leg getting weak not numb- no loss of bowel or bladder control, [ADDITIONAL REASON] Cold Symptoms - Symptoms include sneezing ,nasal congestion ,runny nose ,sore th roat ,facial pressure ,facial pain and headache, while symptoms do not include scratchy throat ,hoarseness ,dry cough or productive cough. Onset was sudden 1 day(s) ago. Onset followed exposure to someo ne at work with upper respiratory symptoms. The symptoms occur constantly. The patient describes this as moderate in severity and worsening. Symptoms are relieved by non-prescription cold medications (Z icam otc caplets and Dayquil gel caps). Associated symptoms include swollen lymph nodes and chills, while associated symptoms do not include plugged ear(s) ,ear pain ,wheezing ,shortness of breath ,fati elizabeth ,weakness ,nausea ,vomiting ,diarrhea or fever. Current treatment includes non- prescription cold medication (dayquil and zicam). Note for Cold Symptoms: sore throat and hard to swollow and colored drainage Encounter Diagnosis: LOW BACK PAIN WITH RADICULOPATHY (724.4), Acute sinusitis (461.9), Thyromegaly (240.9) [facility] Office Visit On: 25-May-2007 11:19 Encounter Reason: Abdominal pain - The onset of the pain has been acute and has been occurring in a persistent pattern for 1 days. The course has been recurrent. The pain is described as a moderate crampy and dull ache. End: 25-May-2007 12:59 The pain is described as being located in the left upper quadrant. The pain radiates to the right shoulder and periumbilical area. The symptoms are aggravated by empty stomach. The symptoms are relieved by passing flatus (Gas X helps). Note for Abdominal pain: abdominal pain on and off for 3 yrs. Recent May 15, [ADDITIONAL REASON] Abnormal bowel movements - The onset of the abnormal bowel movements has been gr adual and they have been occurring for 1 weeks. Encounter Diagnosis: Abdominal Pain,General (789.07) [facility] Payers [employer]; rula guarantor
--- OUTSIDE RECORDS SUMMARY | 2018-05-05 22:26 | XMS RPT_ITS | Continuity of Care Document ---
:1965 Author Organization [facility] Address [address] [place] [address] Phone Care Team Providers Name Role Phone Jovana Puentes DO Unavailable SEEMA Sahu Unavailable Unavailable Benita Gibbs Unavailable Unavailable Alyse Glaser Unavailable Unavailable Unavailable Unavailable Problems Name Dates Details Abdominal mass, RUQ (right upper quadrant) (R19.01, 789.31) Status: Active Abnormal finding on breast imaging (R92.8, 793.89) Status: Active Abortions/Miscarriages Comments: [facility] [place] Status: Active Anxiety (F41.9, 300.00) Status: Active BMI 30.0-30.9,adult (Z68.30, V85.30) Status: Active Candidiasis (B37.9, 112.9) Status: Active Chronic foot pain, right (M79.671, 729.5) Comments: take ibuprofen routinely and if not better morw work up Status: Active Encounter for screening mammogram for [...] (premature ventricular contraction) (I49.3, 427.69) Status: Active Thyroid nodule (E04.1, 241.0) Status: [...] Start : 05-Mar-2011 End : 05-Mar-2011 Inactive Comments:august dispense generic Lidocaine Viscous 2 % Mouth/Throat [...] days Quantity: 1 {Package(s)} Refills: 0 Ordered:19-Jan-2010 BrendenMirna Start : 29-Jun-2009 Inactive Nystatin 171887 UNIT/ML Mouth/Throat Suspension uad Suspension Suspension bid-tid for 0 days Quantity: 1 {Bottle} Refills: 1 Ordered:07-Oct-2016 SEEMA Shau Start : 25-Jan-2016 End : 07-Oct-2016 Inactive [...] : 02-Dec-2012 End : 02-Dec-2012 Discontinued CORTISPORIN, 3.5-14342-4 (Otic Solution) 4 drops Solution tid to [...] 0 Ordered:02-Dec-2012 Fast DO, Jovana AFast DO, Jovnaa A Start : 02-Dec-2012 End : 02-Dec-2012 [...] Tonsillectomy Completed Section Completed Date Value Details 06-Oct-2015 Thyroid Result: Comments: See Note; NOTES: [facility] Imaging Services [address] [place] [address] Verdana 4d Thyroid MR#: [id number] Acct: [id number] Name: FAISAL HAYS Rep #: [id number] : 1965 F 50 From: Jovani Cuba MD PCP: Jovana Puentes DO Status: REG CLI Study: Thyroid Date of Exam: 10/06/15 Exam# [id number] Ordering Dr: Jovana Puentes DO STUDY: THYROID [...] MD at 20:52 EDT , Service support [phone], CC: Jovana Puentes DO Business Analyst: Signed 06-Mar-2015 Bilat Scrn Implant DIG AND CAD Result: Comments: See Note; NOTES: [facility] Imaging Services [address] [place] [address] Verdana 4d Bilat Scrn Implant DIG AND CAD MR#: [id number] Acct: [id number] Na me: FAISAL HAYS Rep #: [id number] : 1965 F 49 From: Sergio Young MD PCP: Jovana Puentes DO Status: REG CLI Study: Bilat Scrn Implant DIG AND CAD Date of Exam: 03/06/15 Exam# [id number] Ordering Dr: Jovana Puentes DO MAMMOGRAPHY - [...] Young MD at 15:44 EST Te l [phone], Service support [phone], CC: Jovana Puentes DO Business Analyst: Signed Family History Unknown Family Member Name [...] Active Vital Signs Date Test Result Details :30 Temperature 97.9 f Comments: Method: Temporal [...] 0.00 cm Results Date Description Value Details 27-Tuu-872702:26 METABOLIC PANEL, Comments: PATIENT WAS FASTINGPERFORMED BY: [facility]Robert [facility] SomersetUiibbs0957 [facility] [id number] Information: NURSE DRAW COMPREHENSIVE (33414) ALT (SGPT) 18 [iU]/L (Normal) Range: 0-32 [...] 6-24 Glucose 96 mg/dL (Normal) Range: 65-99 75-Xir-945667:26 CBC & PLATELETS (AUTO) Comments: PATIENT WAS FASTINGPERFORMED BY: [facility] Ybnpdn2579 [facility] [id number] (43250) Platelets 237 {x10E3/uL} (Normal) Range: 150-379 RDW 13.5 % (Normal) Range: 12.3-15.4 MCHC 33.1 g/dL (Normal) Range: 31.5-35.7 MCH 31.8 pg (Normal) Range: 26.6-33.0 MCV 96 fL (Normal) Range: 79-97 Hematocrit 40.8 % (Normal) Range: 34.0-46.6 Hemoglobin 13.5 g/dL (Normal) Range: 11.1-15.9 RBC 4.24 {x10E6/uL} (Normal) Range: 3.77-5.28 WBC 6.0 {x10E3/uL} (Normal) Range: 3.4-10.8 01-Rzr-419658:04 HEPATIC FUNCTION PANEL Comments: PATIENT NOT FASTINGPERFORMED BY: [facility]Robert [facility] SomersetZmavht0807 [facility] [id number] (42208) ALT (SGPT) 12 [iU]/L (Normal) Range: 0-32 AST (SGOT) 14 [iU]/L (Normal) Range: 0-40 Alkaline Phosphatase, S 53 [iU]/L (Normal) Range: 39-117 Bilirubin, Direct 0.10 mg/dL (Normal) Range: 0.00-0.40 Bilirubin, Total 0.3 mg/dL (Normal) Range: 0.0-1.2 Albumin, Serum 4.4 g/dL (Normal) Range: 3.5-5.5 Protein, Total, Serum 6.7 g/dL (Normal) Range: 6.0-8.5 24-Nxl-971096:04 HEPATITIS PANEL (58211) Comments: PATIENT NOT FASTINGPERFORMED BY: Hypersoft Information SystemsDeckerville Community Hospital6370 [facility] [id number] Hep C Virus Ab <0.1 {s/co_ratio} (Normal) Range: 0.0-0.9 Comments: Negative: < 0.8 Indeterminate: 0.8 - 0.9 Positive: > 0.9 . The CDC recommends that a positive HCV antibody result be followed up with a HCV Nucleic Acid Amplification test (309785). Hep B Core Ab, IgM Negative (Normal) HBsAg Screen Negative (Normal) Hep A Ab, IgM Negative (Normal) 72-Nqn-668123:09 Lyme Disease Antibody W/ Comments: 6 weeks; PATIENT NOT FASTINGPERFORMED BY: Hypersoft Information SystemsDeckerville Community Hospital6370 [facility] [id number] Reflex (86035) Lyme IgG/IgM Ab <0.91 {ISR} (Normal) Range: 0.00-0.90 Comments: Negative <0.91 Equivocal 0.91 - 1.09 Positive >1.09 91-Sqr-266667:50 Lyme Disease Antibody W/ Comments: PATIENT NOT FASTINGPERFORMED BY: [facility]CoRobert [facility] SomersetDkewdu8057 [facility] [id number] Reflex (06660) Lyme IgG/IgM Ab <0.91 {ISR} (Normal) Range: 0.00-0.90 Comments: Negative <0.91 Equivocal 0.91 - 1.09 Positive >1.09 2-Clt-876269:30 CBC WITH MANUAL DIFF Comments: PATIENT NOT FASTINGPERFORMED BY: [facility]6370 [facility] [id number] Information: NURSE DRAW; [facility] labs- all normal (15154) Immature Grans (Abs) 0.0 {x10E3/uL} (Normal) Range: [...] 3.77-5.28 WBC 6.1 {x10E3/uL} (Normal) Range: 3.4-10.8 1-Scf-157657:30 Metabolic Panel, Comprehensive Comments: PATIENT NOT FASTINGPERFORMED BY: [facility]CoRobert [facility] SomersetAarltl0432 [facility] [id number] (24160) ALT (SGPT) 16 [iU]/L (Normal) Range: 0-32 [...] Glucose, Serum 90 mg/dL (Normal) Range: 65-99 83-Cgx-602023:41 SONI CULTURE-OTHER (60874) Comments: PATIENT NOT FASTINGPERFORMED BY: [employer]ers[employer] Information SystemsCoRobert Wood Johnson University Hospital SomersetIcbvtt6307 [address] [place] [id number] Information: SRC:TH Result 1 RRF (Normal) Comments: Routine respiratory anlai Upper Respiratory Culture Final report (Normal) 15-Wlr-22629:05 PAP I-G HPV Hi Risk Comments: CYTOLOGY INFORMATION:- CLINICAL INFORMATION:- DATE LMP/MENOPAUSE: LMP no information on requiredinformation.- COLLECTION VIAL: Thin Prep Vial- CASTABLES WORKER SOURCE: CERVICAL- COLLECTION TECHNIQUE: BRUSH ONLYSp ecimen Comment: [id number] Comment: No. of containers..01 CYTYC Thin Prep VialLabCorp (refer to report for specific site)refer to report for address and phone number HPV HC,HGH RISK Negative Comments: This high-risk HPV test detects thirteen high-risk types(16/18/31/33/35/39/45/51/52/56/58/59/68) withoutdifferentiation.Performed at: [facility] Fancy[address] [id number] (Normal) b Director: María Elena Jones MD, Phone: [phone] at: =[facility] LabVenueJam[address], [place] [id number] Director: María Elena Jones MD, Phone: [phone] PAPSMR Comment Comments: The Pap smear is [...] R87.5 (Normal) PERFORM Comment Comments: Karen Javier, Laundry Or Dry Cleaners Counter Clerk (ASCP) (Normal) ADEQ Comment Comments: Satisfactory for evaluation. Endocervical and/or squamous metaplasticcells (endocervical component) are present. (Normal) DIAGN Comment Comments: NEGATIVE FOR INTRAEPITHELIAL LESION AND MALIGNANCY.FUNGAL ORGANISMS MORPHOLOGICALLY CONSISTENT WITH RADHA SPECIES AREPRESENT.CELLULAR CHANGES ASSOCIATED WITH INFLAMMATION ARE PRESENT. (Normal) 06-Ghj-159202:38 Pathology Report Comments: PERFORMED BY: KWCYT [facility] [place] Cyto Kwwvv28519 [facility] [id number] Information: [id number] See MATER Comments: Material submitted: .SHAVE BX LT CHESTClinical history: .FOR MARGINS. ISK. Note (Normal) Diagnosis:.. -- BASAL CELL CARCINOMA; LATERAL AND DEEP MARGIN(S) APPEAR TO BE INVOLVED..03/19/2013 El ectronically signed: .Natalio Cid MD, PathologistGross description: .1 Container, formalin-filled, labeled with patient identification.SHAVE BX LT CHEST:Received in formalin labeled FAISAL HAYS is a holguin-yellow fragmentof skin measuring 0.4 x 0.4 x 0.1 cm.The margin is marked with purpleink.It is bisected and submitt ed entirely in a single cassette./LMSLMS/LMSPathologist provided ICD-9:173.99, 173.81CPT .617201 9-Kpq-494343:17 PAPIG3 Comments: Specimen Comment: No. of containers..01 CYTYC Thin Prep Vial tHPVHR Negative (Normal) Comments: This high-risk HPV test detects thirteen high-risk types(16/18/31/33/35/39/45/51/52/56/58/59/68) withoutdifferentiation..Performed at: - Lab[address] [id number] ab Director: Papi Lopez MD, Phone: [phone] at: = - LabCo[address] [id number] Director: Papi Lopez MD, Phone: [phone] tPAPSMR Comment (Normal) Comments: The Pap smear [...] tQC Comment (Normal) Comments: Keyana Solis, Supervisory Laundry Or Dry Cleaners Counter Clerk (ASCP) tADEQ Comment (Normal) Comments: Satisfactory for evaluation. Endocervical and/or squamous metaplasticcells (endocervical component) are present. tPERFORM Comment (Normal) Comments: Fatemeh Nunez, Laundry Or Dry Cleaners Counter Clerk (ASCP) tDIAG Comment (Normal) Comments: NEGATIVE FOR INTRAEPITHELIAL LESION AND MALIGNANCY.THIS SPECIMEN WAS RESCREENED PART OF OUR SUPERVISOR AIR CONDITIONING INSTALLER PROGRAM. :11 LIPID PANEL (67117) Comments: PATIENT WAS FASTINGPERFORMED BY: Everyday SolutionsRobert Wood Johnson [facility] Hospital SomersetSrtiju9993 [facility] [id number] LDL/HDL Ratio 2.0 {ratio_units} (Normal) Range: 0.0-3.2 LDL Cholesterol Calc 115 mg/dL (Abnormal) Range: 0-99 HDL Cholesterol 58 mg/dL (Normal) Comments: According to ATP-III Guidelines, HDL-C >59 mg/dL is considered anegative risk factor for CHD. VLDL Cholesterol Orlin 18 mg/dL (Normal) Range: 5-40 Cholesterol, Total 191 mg/dL (Normal) Range: 100-199 Triglycerides 89 mg/dL (Normal) Range: 0-149 :11 Anti-TPO Antibody (34415) Comments: PATIENT WAS FASTINGPERFORMED BY: [facility]6370 [facility] [id number] Thyroid Peroxidase (TPO) Ab 7 {IU/mL} (Normal) Range: 0-34 :11 TSH (28513) Comments: PATIENT WAS FASTINGPERFORMED BY: [facility]6370 [facility] [id number] TSH 1.200 {uIU/mL} (Normal) Range: 0.450-4.500 :11 T4, FREE (THYROXINE) (59377) Comments: PATIENT WAS FASTINGPERFORMED BY: [facility]6370 [facility] [id number] T4,Free(Direct) 1.10 ng/dL (Normal) Range: 0.82-1.77 :11 T3, FREE (TRIDOTHYRONINE) (33285) Comments: PATIENT WAS FASTINGPERFORMED BY: [facility]6370 [facility] [id number] Triiodothyronine,Free,Serum 2.8 pg/mL (Normal) Range: 2.0-4.4 :11 CBC WITH MANUAL DIFF Comments: PATIENT WAS FASTINGPERFORMED BY: [facility]6370 [facility] [id number] Information: [id number] (30950) Immature Grans (Abs) 0.0 {x10E3/uL} (Normal) Range: [...] 3.77-5.28 WBC 5.6 {x10E3/uL} (Normal) Range: 4.0-10.5 44-Yam-04502:11 METABOLIC PANEL, COMPREHENSIVE Comments: PATIENT WAS FASTINGPERFORMED BY: LabCoRobert [facility] SomersetEkguzb0293 [facility] [id number] (99347) ALT (SGPT) 10 [iU]/L (Normal) Range: 0-32 [...] (Normal) Range: 65-99 :11 Vitamin D Hydroxy (24859) Comments: PATIENT WAS FASTINGPERFORMED BY: Chikka6370 [facility]UNC [facility] [id number] Vitamin D, 25-Hydroxy 34.1 ng/mL (Normal) Range: 30.0-100.0 Comments: Vitamin D deficiency has been defined by the [place] ofMedicine and an Endocrine Society practice guideline as alevel of serum 25-OH vitamin D less than 20 ng/mL (1,2).The Endocrine Society went on to further define vitamin Dinsufficiency as a level between 21 and 29 ng/mL (2).1. IOM ([place] of Medicine). 2010. Dietary reference intakes for calcium and D. [place]: The National Academies Press.2. Nicole MF, [place], Ra CESPEDES, et al. Evaluation, treatment, and prevention of vitamin D deficiency: an Endocrine Society clinical practice guideline. JCEM. 2010; 96(7):1911-30. :11 PARATHORMONE (65091) Comments: PATIENT WAS FASTINGPERFORMED BY: [employer] LabVenueJam Nnzxmk7723 [facility] [id number] PTH, Intact 25 pg/mL (Normal) Range: 15-65 13-Cte-188392:51 MRSAD tMRSA Negative (Normal) SOURCE: NASAL SWAB (Normal) 3-Fvj-652142:27 THYROID Radiology Report See Note (Normal) Comments: [...] Young M.D.January 28, 2012 at 3:57:09 PM [id number] nically Signed GP/GP If you are the referring physician and would like to consult with theradiologist who provided this interpretation, please contact Kosta Cifuentes at [phone]. If this ra diologist is unavailable, youwill be directed to another radiologist to assist. If you are a patient with a question regarding this report, pleasecontactyour referring physician directly. Professional I nterpretation Provided By: [employer], Phone , These documents contain legally protected [...] return or destructionofthese documents. Dictated on 01/28/12 2344 by Kennedy Young MDribed on 01/28/12 1603 by ITS IMPORTSign by Sergio Young MD on 01/28/12 1600 Sign by: Hector SOLIMANSergio 06-Ida-57909:44 Pathology Report Comments: PERFORMED BY: [facility] [place] Xkyu73366 [facility] [id number] BY: Michelle) [facility] Dept Of Jgqdzj757 [facility] [id number] Clinical Inf ormation: [id number] See MATER Comments: Material submitted: .PUNCH BIOPSYY OF LEFT BACK SHOULDERClinical history: .IRRITATED MOLEFAST GROWING CRUSTY MOL Note (Normal) EFOR MARGINSDiagnosis:INFLAMED AND IRRITATED SEBORRHEIC KERATOSIS.KYK/10/24/2011 Electronically signed: .Kat Low MD, DermatopathologistGross description: .RECEIVED IN F ORMALIN LABELED FAISAL HAYS WITHOUT SITEIDENTIFIED ON THE CONTAINER DESIGNATED LEFT BACK SHOULDER ON THEREQUISITION IS A HOLGUIN/BROWN SKIN PUNCH MEASURING 0.4 CM INDIAMETER EXCISED TO A DEPTH OF 0.7 CM. THE SPECIMEN IS INKEDBLACK AT THE MARGIN, BISECTED AND ENTIRELY SUBMITTED..APA/JASPathologist provided ICD-9:702.11CPT .833704 41-Mxe-581258:29 Urinalysis, Office (27852) UA - BILIRUBIN Negative (Normal) UA - BLOOD Hemolyzed Moderate (Normal) UA - GLUCOSE Negative (Normal) UA - KETONES Negative mg/dL (Normal) UA - LEUKOCYTE ESTERASE Moderate (Normal) UA - NITRITE Negative (Normal) UA - PH 6.0 (Normal) UA - PROTEIN Negative mg/dL (Normal) UA - SPECIFIC GRAVITY 1.025 (Normal) URINE UROBILINGN MURIEL TIMED Normal mg/dL (Normal) :26 HCV Antibody Comments: PERFORMED BY: kSARIA [facility] [id number] Hep C Virus Ab <0.1 {s/co_ratio} Range: 0.0-0.9 (Normal) Comments: Negative: < 0.8Indeterminate 0.8 - 0.9Positive: > 0.9.In order to reduce the incidence of a false positiveresult, the CDC recommends that all s/co ratiosbetween 1.0 and 10.9 be confirmed with additionalRIBA or PCR testing. : Hep B Surface Ab 0.59 {Index_Value} Comments: PERFORMED BY: [employer] [facility] [id number] 26 (Normal) Range: 0.00-0.99 Comments: Status of Immunity Anti-HBs Level Inconsistent with Immunity 0.00 - 0.99Consistent with Immunity >0.99.An Index Value of 1.00 is equivalent to 10 mIU/mL.However the magnitude of the Index Value is notindicative of the total amount of antibody present. :26 Panel 190085 Comments: PERFORMED BY: [employer] [facility] [id number] HIV 1/O/2 Abs, Qual Non Reactive (Normal) HIV 1/O/2 Abs-Index Value <1.00 (Normal) Comments: Index Value: Specimen reactivity relative to the negative cutoff. :15 URINE SONI CULTURE-MURIEL COL Comments: PATIENT NOT FASTINGPERFORMED BY: [employer] nubelo [facility] [id number] Information: SRC: [id number] COUNT (15360) Antimicrobial MIHEAD (Normal) Comments: S = Susceptible; [...] mL (Normal) Urine Final report (Normal) Culture,Comprehensive 79-Jcu-36046:16 Urinalysis, Office (31442) UA - LEUKOCYTE ESTERASE Moderate (Normal) UA - NITRITE Negative (Normal) URINE UROBILINGN MURIEL TIMED Normal mg/dL (Normal) UA - PROTEIN Trace mg/dL (Normal) UA - PH 6.0 (Normal) UA - BLOOD Hemolyzed Large (Normal) UA - SPECIFIC GRAVITY 1.005 (Normal) UA - KETONES Negative mg/dL (Normal) UA - BILIRUBIN Negative (Normal) UA - GLUCOSE Negative (Normal) 74-Nvs-738603:37 SPINE,LUMBAR (ROUTINE) Radiology Report See Note (Normal) Comments: Exam Number: [id number] CLINICAL: Low back pain since April, severe [...] other level. Reported By: HIPOLITO SCOTT M.D. 51-Fzv-95588:12 BILAT SCRN IMPLANT DIG & CAD Radiology Report See Note (Normal) Comments: Exam Number: [id number] MAMMOGRAM, BILATERAL SCREENING IMPLANT DIGITAL AND CAD [...] werealso examined with computer-a ided detection software (Ayasdi, Saranas.). Reported By: ESTEBAN VALERA M.D. 7-Zyk-362584:02 THYROID (HP) Radiology Report See Note (Normal) Comments: Exam Number: [id number] THYROID ULTRASOUND HISTORYThyromegaly. High resolution real-time linear [...] be performed. Reported By: ESTEBAN VALERA M.D. 36-Kgs-460899:31 Hepatic Function Panel (7) Comments: PATIENT WAS FASTINGPERFORMED BY: [facility]Saint [facility] Flowrm9404 [facility] [id number] Albumin, Serum 4.6 g/dL (Normal) Range: 3.5-5.5 Alkaline Phosphatase, S 50 [iU]/L (Normal) Range: 25-150 ALT (SGPT) 13 [iU]/L (Normal) Range: 0-40 AST (SGOT) 14 [iU]/L (Normal) Range: 0-40 Bilirubin, Direct 0.15 mg/dL (Normal) Range: 0.00-0.40 Bilirubin, Total 0.6 mg/dL (Normal) Range: 0.1-1.2 Protein, Total, Serum 6.8 g/dL (Normal) Range: 6.0-8.5 14-Ukp-767121:52 ABDOMEN COMPLETE Radiology Report See Note (Normal) Comments: Exam Number: [id number] COMPLETE ABDOMINAL ULTRASOUND HISTORYAbdominal pain. High resolution [...] 4.2 x 5.5 cm. The left kidney pkfklbiw17.4 x 6.1 x 5.2 cm. Th ere [...] is normal. Reported By: ESTEBAN VALERA M.D. 43-Sfa-955022:56 CBC, Platelets & Auto Diff Comments: PATIENT NOT FASTINGClinical Information: ADD DARW FEE [id number] ADD J0 8076 PERFORMED BY: [facility]6370 [facility] [id number] (81079) Baso (Absolute) 0.1 {x10E3/uL} (Normal) Range: 0.0-0.2 [...] 11.7-15.0 WBC 5.3 {x10E3/uL} (Normal) Range: 4.0-10.5 07-Cks-579994:56 Metabolic Panel, Comprehensive Comments: PATIENT NOT FASTINGPERFORMED BY: [facility] Bgweyk7624 [facility] [id number] (07557) A/G Ratio 1.9 (Normal) Range: 1.1-2.5 Albumin, [...] Sodium, Serum 138 mmol/L (Normal) Range: 135-148 69-Vdf-086583:56 Lipid Panel (37784) Comments: PATIENT NOT FASTINGPERFORMED BY: F[facility]Robert [facility] SomersetQgvihj7036 [facility] [id number] Cholesterol, Total 176 mg/dL (Normal) Range: 100-199 Comment SPRCS (Normal) Comments: HDL cholesterol values >59 mg/dL are associated with reduced cardiacrisk. HDL Cholesterol 67 mg/dL (Abnormal) Range: 40-59 LDL Cholesterol Calc 94 mg/dL (Normal) Range: 0-99 LDL/HDL Ratio 1.4 {ratio_units} (Normal) Range: 0.0-3.2 Triglycerides 74 mg/dL (Normal) Range: 0-149 VLDL Cholesterol Orlin 15 mg/dL (Normal) Range: 5-40 48-Gle-915356:56 HELICOBACTER PYLORI ANTIBODY Comments: PATIENT NOT FASTINGPERFORMED BY: [facility]Robert [facility] SomersetZusjaz5009 [facility] [id number] (09647) H. pylori IgG, Abs <0.9 U/mL (Normal) Range: 0.0-0.8 Comments: Negative <0.9 Indeterminate 0.9 - 1.0 Positive >1.0 Plan of Care Name Dates Details Instructions BMI 26.0-26.9,adult : Eprescribed prescriptions (G8553) Indication: [...] Acute sinusitis Planned Observations Metabolic Panel, Comprehensive (97203)Indication: Jaundice On: :05 Request HEPATIC FUNCTION PANEL (43429)Indication: Jaundice On: :05 Request Lyme Disease Antibody W/ Reflex (11300)Indication: Tick bite On: 87-Dub-503890:04 Request Comments: 6 months PARATHORMONE (46110)Indication: Family history of hyperparathyroidism On: 08-Ufe-85519:45 Request Vitamin D Hydroxy (33727)Indication: Vitamin D deficiency On: 58-Jpp-58251:45 Request HPV automatic (95020)Indication: Screening for HPV (human papillomavirus) (Renamed from Encounter for screening for human papillomavirus (HPV)) On: 29-Cwu-835073:24 Request Thin prep Pap (37257) (no STD testing)Indication: Well woman exam On: 95-Zxl-527078:02 Request HPV automatic (13601)Indication: Screening for HPV (human papillomavirus) On: 2-Iks-615181:37 Request Thin prep Pap (46822)Indication: Well woman exam On: 7-Mjv-283328:37 Request MRSA Culture (39928)Indication: Unspecified open wound of other finger without damage to nail, initial encounter On: :53 Request LIPID PANEL (57383)Indication: xanthelasma On: :29 Request CBC WITH MANUAL DIFF (21483)Indication: Anemia On: :29 Request T3, FREE (TRIDOTHYRONINE) (11688)Indication: Thyroid nodule On: :29 Request T4, FREE (THYROXINE) (24042)Indication: Thyroid nodule On: :29 Request Anti-TPO Antibody (69803)Indication: Thyroid nodule On: :29 Request TSH (52189)Indication: Thyroid nodule On: :28 Request URINALYSIS (86499)Indication: Urinary frequency On: 18-Vzu-401762:30 Request Planned Procedures MAMMOGRAM BREAST BILATERAL SCREENING On: 27-Feb-2018 Intent DIGITAL (86074)By: Fast DO, Jovana A Fast DO, Jovana A CT - Abdomen (IV Contrast Needed)By: On: 09-Feb-2018 Intent Fast DO, Jovana A Fast DO, Jovana A Ultrasound - ThyroidBy: Fast DO, On: 14-Nov-2017 Intent Jovana A Fast DO, Jovana A ULTRASOUND, RIGHT BREAST (92041)By: On: 06-Nov-2017 Intent Louisa Pantoja Holter Monitor 24 hrsBy: Fast DO, On: 19-Jul-2016 Intent Jovana A Fast DO, Jovana A Echo CompleteBy: Fast DO, Jovana A On: 19-Jul-2016 Intent Fast DO, Jovana A EsophagramBy: Fast DO, Jovana A Fast On: 19-Jul-2016 Intent DO, Jovana A Comments: with 11 mm tablet SCREENING DIGITAL TOMOSYNTHESIS OF On: 19-Jul-2016 Intent BREAST (68274)By: Fast DO, Jovana A Fast DO, Jovana A EsophagramBy: Fast DO, Jovana A Fast On: 06-Nov-2015 Intent DO, Ojvana A Comments: with 12 mm tablet Ultrasound - ThyroidBy: Fast DO, On: 20-Sep-2015 Intent Jovana A Fast DO, Jovana A MAMMOGRAM, SCREENING, BOTH BREAST On: 22-Feb-2015 Intent (04208)By: Fast DO, Jovana A Fast DO, Jovana A Toradol Injection, 30 mg (J1885)By: On: 30-Nov-2014 Intent Tiffanie Cevallos CNP Comments: given [facility] rt BIOPSY OF SKIN LESION, SINGLE On: 15-Mar-2013 Intent (42500)By: Tiffanie Cevallos CNP Breast Ultrasound - RightBy: Fast DO, On: 26-Feb-2013 Intent Jovana A Fast DO, Jovaan A Eprescribed prescriptions (G8553)By: On: 03-Feb-2013 Intent Sai Benita MRI - BreastBy: Fast DO, Jovana A [...] Cevallos CNP Comments: given left glut lot #[id number] exp Feb 05 Toradol Injection, 30 mg [...] Jalyn Lara MD Instructions Name Dates Details BMI 26.0-26.9,adult : How to access health [...] : Patient Instructions Indication: Breast pain Encounters Phone Encounter On: 27-Feb-2018 9:34 Encounter Diagnosis: [...] - Diagnostic tests include ultrasound (thyroid). Date: (6/10/16). 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
--- OUTSIDE RECORDS SUMMARY | 2018-05-05 22:27 | XMS RPT_ITS | Continuity of Care Document ---
:1965 Author Organization [facility] Address [address] [place] [address] Phone Care Team Providers Name Role Phone Jovana Puentes DO Unavailable SEEMA Sahu Unavailable Unavailable Benita Gibbs Unavailable Unavailable Alyse Glaser Unavailable Unavailable Unavailable Unavailable Problems Name Dates Details Abdominal mass, RUQ (right upper quadrant) (R19.01, 789.31) Status: Active Abnormal finding on breast imaging (R92.8, 793.89) Status: Active Abortions/Miscarriages Comments: [place] - Status: Active Anxiety (F41.9, 300.00) Status: [...] Ordered:19-Jan-2010 BrendenMirna Start : 29-Jun-2009 Inactive Nystatin 446359 UNIT/ML Mouth/Throat Suspension uad Suspension Suspension bid-tid [...] : 02-Dec-2012 End : 02-Dec-2012 Discontinued CORTISPORIN, 3.5-85098-1 (Otic Solution) 4 drops Solution tid to [...] 06-Oct-2015 Thyroid Result: Comments: See Note; NOTES: [facility] Imaging Services [address] [place] [address] Verdana 4d Thyroid MR#: [id number] Acct: [id number] Name: FAISAL HAYS Rep #: [id number] : 1965 F 50 From: Jovani Cuba MD PCP: Jovana Puentes DO Status: REG CLI Study: Thyroid Date of Exam: 10/06/15 Exam# [id number] Ordering Dr: Jovana Puentes DO STUDY: THYROID [...] MD at 20:52 EDT , Service support [phone], CC: Jovana Puentes DO Optician: Signed 06-Mar-2015 Bilat Scrn Implant DIG AND CAD Result: Comments: See Note; NOTES: [facility] Imaging Services [address] [place] [address] Verdana 4d Bilat Scrn Implant DIG AND CAD MR#: [id number] Acct: [id number] Na me: FAISAL HAYS Rep #: [id number] : 1965 F 49 From: Sergio Young MD PCP: Jovana Puentes DO Status: REG CLI Study: Bilat Scrn Implant DIG AND CAD Date of Exam: 03/06/15 Exam# [id number] Ordering Dr: Jovana Puentes DO MAMMOGRAPHY - [...] Young MD at 15:44 EST Te l [id number], Service support [phone], CC: Jovana Puentes DO Optician: Signed Family History Unknown Family Member Name [...] 0.00 cm Results Date Description Value Details 48-Roj-494785:26 METABOLIC PANEL, Comments: PATIENT WAS FASTINGPERFORMED BY: [facility]Co[facility] CenterOpfask[address] [facility] [id number] Information: NURSE DRAW COMPREHENSIVE (89217) ALT (SGPT) 18 [iU]/L (Normal) Range: 0-32 [...] 6-24 Glucose 96 mg/dL (Normal) Range: 65-99 78-Nrb-986470:26 CBC & PLATELETS (AUTO) Comments: PATIENT WAS FASTINGPERFORMED BY: [facility] Jjgrct[address] [facility] [id number] (88708) Platelets 237 {x10E3/uL} (Normal) Range: 150-379 RDW 13.5 % (Normal) Range: 12.3-15.4 MCHC 33.1 g/dL (Normal) Range: 31.5-35.7 MCH 31.8 pg (Normal) Range: 26.6-33.0 MCV 96 fL (Normal) Range: 79-97 Hematocrit 40.8 % (Normal) Range: 34.0-46.6 Hemoglobin 13.5 g/dL (Normal) Range: 11.1-15.9 RBC 4.24 {x10E6/uL} (Normal) Range: 3.77-5.28 WBC 6.0 {x10E3/uL} (Normal) Range: 3.4-10.8 95-Gxl-173687:04 HEPATIC FUNCTION PANEL Comments: PATIENT NOT FASTINGPERFORMED BY: [facility]save[facility] CenterXcseut[address] [facility] [address] [id number] (32041) ALT (SGPT) 12 [iU]/L (Normal) Range: 0-32 AST (SGOT) 14 [iU]/L (Normal) Range: 0-40 Alkaline Phosphatase, S 53 [iU]/L (Normal) Range: 39-117 Bilirubin, Direct 0.10 mg/dL (Normal) Range: 0.00-0.40 Bilirubin, Total 0.3 mg/dL (Normal) Range: 0.0-1.2 Albumin, Serum 4.4 g/dL (Normal) Range: 3.5-5.5 Protein, Total, Serum 6.7 g/dL (Normal) Range: 6.0-8.5 99-Wil-887167:04 HEPATITIS PANEL (78512) Comments: PATIENT NOT FASTINGPERFORMED BY: [facility] [id number] Hep C Virus Ab <0.1 {s/co_ratio} (Normal) Range: 0.0-0.9 Comments: Negative: < 0.8 Indeterminate: 0.8 - 0.9 Positive: > 0.9 . The CDC recommends that a positive HCV antibody result be followed up with a HCV Nucleic Acid Amplification test (507850). Hep B Core Ab, IgM Negative (Normal) HBsAg Screen Negative (Normal) Hep A Ab, IgM Negative (Normal) 13-Klx-326250:09 Lyme Disease Antibody W/ Comments: 6 weeks; PATIENT NOT FASTINGPERFORMED BY: [facility] [id number] Reflex (78973) Lyme IgG/IgM Ab <0.91 {ISR} (Normal) Range: 0.00-0.90 Comments: Negative <0.91 Equivocal 0.91 - 1.09 Positive >1.09 17-Eya-730201:50 Lyme Disease Antibody W/ Comments: PATIENT NOT FASTINGPERFORMED BY: [facility]Co[facility] CenterNgtprp[address] [facility] [address] [id number] Reflex (81729) Lyme IgG/IgM Ab <0.91 {ISR} (Normal) Range: 0.00-0.90 Comments: Negative <0.91 Equivocal 0.91 - 1.09 Positive >1.09 7-Tzl-326505:30 CBC WITH MANUAL DIFF Comments: PATIENT NOT FASTINGPERFORMED BY: [facility] [id number] Information: NURSE DRAW; [facility] labs- all normal (77002) Immature Grans (Abs) 0.0 {x10E3/uL} (Normal) Range: [...] 3.77-5.28 WBC 6.1 {x10E3/uL} (Normal) Range: 3.4-10.8 8-Jet-643220:30 Metabolic Panel, Comprehensive Comments: PATIENT NOT FASTINGPERFORMED BY: [facility]Co[facility] CenterCdeckf[address] [facility] [address] [id number] (99817) ALT (SGPT) 16 [iU]/L (Normal) Range: 0-32 [...] Glucose, Serum 90 mg/dL (Normal) Range: 65-99 04-Xfa-256243:41 SONI CULTURE-OTHER (02707) Comments: PATIENT NOT FASTINGPERFORMED BY: [facility] ScientificCoMead[facility] Medical CenterNvsvxa[address] [place] [id number] Information: SRC:TH Result 1 RRF (Normal) Comments: Routine respiratory anali Upper Respiratory Culture Final report (Normal) 44-Iaz-87224:05 PAP I-G HPV Hi Risk Comments: CYTOLOGY INFORMATION:- CLINICAL INFORMATION:- DATE LMP/MENOPAUSE: LMP no information on requiredinformation.- COLLECTION VIAL: Thin Prep Vial- YARN CONDITIONER SOURCE: CERVICAL- COLLECTION TECHNIQUE: BRUSH ONLYSp ecimen Comment: [id number] Comment: No. of containers..01 CYTYC Thin Prep VialLabCorp (refer to report for specific site)refer to report for address and phone number HPV HC,HGH RISK Negative Comments: This high-risk HPV test detects thirteen high-risk types(16/18/31/33/35/39/45/51/52/56/58/59/68) withoutdifferentiation.Performed at: [facility] Spreadsave[address] [id number] (Normal) b Director: María Elena Jones MD, Phone: [phone] at: =[facility] LabInflux[address], [place] [id number] Director: María Elena Jones MD, Phone: [phone] PAPSMR Comment Comments: The Pap smear is [...] R87.5 (Normal) PERFORM Comment Comments: Karen Javier, Yoker (ASCP) (Normal) ADEQ Comment Comments: Satisfactory for evaluation. Endocervical and/or squamous metaplasticcells (endocervical component) are present. (Normal) DIAGN Comment Comments: NEGATIVE FOR INTRAEPITHELIAL LESION AND MALIGNANCY.FUNGAL ORGANISMS MORPHOLOGICALLY CONSISTENT WITH RADHA SPECIES AREPRESENT.CELLULAR CHANGES ASSOCIATED WITH INFLAMMATION ARE PRESENT. (Normal) 11-Vpf-697144:38 Pathology Report Comments: PERFORMED BY: KWCYT [facility] [place] Cyto Rjmfk23814 [facility] [id number] Information: [id number] See MATER Comments: Material submitted: .SHAVE BX [...] in a single cassette./LMSLMS/LMSPathologist provided ICD-9:173.99, 173.81CPT .958023 8-Jnu-743518:17 PAPIG3 Comments: Specimen Comment: No. of containers..01 CYTYC Thin Prep Vial tHPVHR Negative (Normal) Comments: This high-risk HPV test detects thirteen high-risk types(16/18/31/33/35/39/45/51/52/56/58/59/68) withoutdifferentiation..Performed at: - Lab[address] [id number] ab Director: Papi Lopez MD, Phone: [phone] at: = - LabCo[address] [id number] Director: Papi Lopez MD, Phone: [phone] tPAPSMR Comment (Normal) Comments: The Pap smear [...] tQC Comment (Normal) Comments: Keyana Solis, Supervisory Yoker (ASCP) tADEQ Comment (Normal) Comments: Satisfactory for evaluation. Endocervical and/or squamous metaplasticcells (endocervical component) are present. tPERFORM Comment (Normal) Comments: Fatemeh Nunez, Yoker (ASCP) tDIAG Comment (Normal) Comments: NEGATIVE FOR INTRAEPITHELIAL LESION AND MALIGNANCY.THIS SPECIMEN WAS RESCREENED PART OF OUR BUILDING EQUIPMENT OPERATOR PROGRAM. :11 LIPID PANEL (17677) Comments: PATIENT WAS FASTINGPERFORMED BY: [facility] GroupM[facility] Medical CenterEoxwsm[address] [facility] [address] [id number] LDL/HDL Ratio 2.0 {ratio_units} (Normal) Range: 0.0-3.2 LDL Cholesterol Calc 115 mg/dL (Abnormal) Range: 0-99 HDL Cholesterol 58 mg/dL (Normal) Comments: According to ATP-III Guidelines, HDL-C >59 mg/dL is considered anegative risk factor for CHD. VLDL Cholesterol Orlin 18 mg/dL (Normal) Range: 5-40 Cholesterol, Total 191 mg/dL (Normal) Range: 100-199 Triglycerides 89 mg/dL (Normal) Range: 0-149 :11 Anti-TPO Antibody (83186) Comments: PATIENT WAS FASTINGPERFORMED BY: [facility] [id number] Thyroid Peroxidase (TPO) Ab 7 {IU/mL} (Normal) Range: 0-34 :11 TSH (54475) Comments: PATIENT WAS FASTINGPERFORMED BY: [facility] [id number] TSH 1.200 {uIU/mL} (Normal) Range: 0.450-4.500 :11 T4, FREE (THYROXINE) (63653) Comments: PATIENT WAS FASTINGPERFORMED BY: [facility] [id number] T4,Free(Direct) 1.10 ng/dL (Normal) Range: 0.82-1.77 :11 T3, FREE (TRIDOTHYRONINE) (76271) Comments: PATIENT WAS FASTINGPERFORMED BY: [facility] [id number] Triiodothyronine,Free,Serum 2.8 pg/mL (Normal) Range: 2.0-4.4 :11 CBC WITH MANUAL DIFF Comments: PATIENT WAS FASTINGPERFORMED BY: [facility] [id number] Information: [id number] (54835) Immature Grans (Abs) 0.0 {x10E3/uL} (Normal) Range: [...] 3.77-5.28 WBC 5.6 {x10E3/uL} (Normal) Range: 4.0-10.5 64-Noi-86683:11 METABOLIC PANEL, COMPREHENSIVE Comments: PATIENT WAS FASTINGPERFORMED BY: [facility]Co[facility] Medical CenterTrtzbz6[address] [facility] [address] [id number] (57784) ALT (SGPT) 10 [iU]/L (Normal) Range: 0-32 [...] (Normal) Range: 65-99 :11 Vitamin D Hydroxy (09105) Comments: PATIENT WAS FASTINGPERFORMED BY: [facility]str6[facility] [id number] Vitamin D, 25-Hydroxy 34.1 ng/mL (Normal) Range: 30.0-100.0 Comments: Vitamin D deficiency has been defined by the [place] of[place]icine and an Endocrine Society practice guideline as alevel of serum 25-OH vitamin D less than 20 ng/mL (1,2).The Endocrine Society went on to further define vitamin Dinsufficiency as a level between 21 and 29 ng/mL (2).1. IOM ([place] of Medicine). 2010. Dietary reference intakes for calcium and D. [place]: The National Academies Press.2. Nicole MF, [place], Ra CESPEDES, et al. Evaluation, treatment, and prevention of vitamin D deficiency: an Endocrine Society clinical practice guideline. JCEM. 2010; 96(7):1911-30. :11 PARATHORMONE (03563) Comments: PATIENT WAS FASTINGPERFORMED BY: [employer] LabInflux Cvusos[address] [id number] PTH, Intact 25 pg/mL (Normal) Range: 15-65 08-Lry-005809:51 MRSAD tMRSA Negative (Normal) SOURCE: NASAL SWAB (Normal) 2-Wpq-936617:27 THYROID Radiology Report See Note (Normal) Comments: [...] Young M.D.January 28, 2012 at 3:57:09 PM [id number] nically Signed GP/GP If you are the referring physician and would like to consult with theradiologist who provided this interpretation, please contact Kosta Cifuentes at [phone]. If this ra diologist is unavailable, youwill be directed to another radiologist to assist. If you are a patient with a question regarding this report, pleasecontactyour referring physician directly. Professional I nterpretation Provided By: [facility], Phone , These documents contain legally protected [...] return or destructionofthese documents. Dictated on 01/28/12 5244 by Kennedy Young MDribed on 01/28/12 1603 by ITS IMPORTSign by Sergio Young MD on 01/28/12 1606 Sign by: Hector SOLIMANSergio 70-Cea-01653:44 Pathology Report Comments: PERFORMED BY: [facility] [place] Gddi34830 [facility] [id number] BY: Michelle) [facility] Dept Of Udqenb411 [facility] [id number] Clinical Inf ormation: [id number] See MATER Comments: Material submitted: .PUNCH BIOPSYY OF LEFT BACK SHOULDERClinical history: .IRRITATED MOLEFAST GROWING CRUSTY MOL Note (Normal) EFOR MARGINSDiagnosis:INFLAMED AND IRRITATED SEBORRHEIC KERATOSIS.NJK/10/24/2011 Electronically signed: .Kat Low MD, DermatopathologistGross description: .RECEIVED IN F ORMALIN LABELED FAISAL HAYS WITHOUT SITEIDENTIFIED ON THE CONTAINER DESIGNATED LEFT BACK SHOULDER ON THEREQUISITION IS A HOLGUIN/BROWN SKIN PUNCH MEASURING 0.4 CM INDIAMETER EXCISED TO A DEPTH OF 0.7 CM. THE SPECIMEN IS INKEDBLACK AT THE MARGIN, BISECTED AND ENTIRELY SUBMITTED..APA/JASPathologist provided ICD-9:702.11CPT .926284 16-Nnz-018688:29 Urinalysis, Office (16092) UA - BILIRUBIN Negative (Normal) UA - BLOOD Hemolyzed Moderate (Normal) UA - GLUCOSE Negative (Normal) UA - KETONES Negative mg/dL (Normal) UA - LEUKOCYTE ESTERASE Moderate (Normal) UA - NITRITE Negative (Normal) UA - PH 6.0 (Normal) UA - PROTEIN Negative mg/dL (Normal) UA - SPECIFIC GRAVITY 1.025 (Normal) URINE UROBILINGN MURIEL TIMED Normal mg/dL (Normal) :26 HCV Antibody Comments: PERFORMED BY: [employer] [facility] [id number] Hep C Virus Ab <0.1 {s/co_ratio} Range: 0.0-0.9 (Normal) Comments: Negative: < 0.8Indeterminate 0.8 - 0.9Positive: > 0.9.In order to reduce the incidence of a false positiveresult, the CDC recommends that all s/co ratiosbetween 1.0 and 10.9 be confirmed with additionalRIBA or PCR testing. : Hep B Surface Ab 0.59 {Index_Value} Comments: PERFORMED BY: [employer] [facility] [id number] 26 (Normal) Range: 0.00-0.99 Comments: Status of Immunity Anti-HBs Level Inconsistent with Immunity 0.00 - 0.99Consistent with Immunity >0.99.An Index Value of 1.00 is equivalent to 10 mIU/mL.However the magnitude of the Index Value is notindicative of the total amount of antibody present. :26 Panel [id number] Comments: PERFORMED BY: [employer] [facility] [id number] HIV 1/O/2 Abs, Qual Non Reactive (Normal) HIV 1/O/2 Abs-Index Value <1.00 (Normal) Comments: Index Value: Specimen reactivity relative to the negative cutoff. :15 URINE SONI CULTURE-MURIEL COL Comments: PATIENT NOT FASTINGPERFORMED BY: [facility] [id number] Information: SRC: [id number] COUNT (59490) Antimicrobial MIHEAD (Normal) Comments: S = Susceptible; [...] mL (Normal) Urine Final report (Normal) Culture,Comprehensive 68-Oha-42234:16 Urinalysis, Office (86269) UA - LEUKOCYTE ESTERASE Moderate (Normal) UA - NITRITE Negative (Normal) URINE UROBILINGN MURIEL TIMED Normal mg/dL (Normal) UA - PROTEIN Trace mg/dL (Normal) UA - PH 6.0 (Normal) UA - BLOOD Hemolyzed Large (Normal) UA - SPECIFIC GRAVITY 1.005 (Normal) UA - KETONES Negative mg/dL (Normal) UA - BILIRUBIN Negative (Normal) UA - GLUCOSE Negative (Normal) 65-Dfk-117225:37 SPINE,LUMBAR (ROUTINE) Radiology Report See Note (Normal) Comments: Exam Number: [id number] CLINICAL: Low back pain since April, severe [...] other level. Reported By: HIPOLITO SCOTT M.D. 59-Ohs-81086:12 BILAT SCRN IMPLANT DIG & CAD Radiology Report See Note (Normal) Comments: Exam Number: [id number] MAMMOGRAM, BILATERAL SCREENING IMPLANT DIGITAL AND CAD [...] werealso examined with computer-a ided detection software ([employer], [employer] Reported By: ESTEBAN VALERA M.D. 0-Svf-077153:02 THYROID (HP) Radiology Report See Note (Normal) Comments: Exam Number: [id number] THYROID ULTRASOUND HISTORYThyromegaly. High resolution real-time linear [...] be performed. Reported By: ESTEBAN VALERA M.D. 59-Cbb-781204:31 Hepatic Function Panel (7) Comments: PATIENT WAS FASTINGPERFORMED BY: [facility] Zikylr[address] [facility] [address] [id number] Albumin, Serum 4.6 g/dL (Normal) Range: 3.5-5.5 Alkaline Phosphatase, S 50 [iU]/L (Normal) Range: 25-150 ALT (SGPT) 13 [iU]/L (Normal) Range: 0-40 AST (SGOT) 14 [iU]/L (Normal) Range: 0-40 Bilirubin, Direct 0.15 mg/dL (Normal) Range: 0.00-0.40 Bilirubin, Total 0.6 mg/dL (Normal) Range: 0.1-1.2 Protein, Total, Serum 6.8 g/dL (Normal) Range: 6.0-8.5 79-Yto-511558:52 ABDOMEN COMPLETE Radiology Report See Note (Normal) Comments: Exam Number: [id number] COMPLETE ABDOMINAL ULTRASOUND HISTORYAbdominal pain. High resolution [...] 4.2 x 5.5 cm. The left kidney yqgcjdcm42.4 x 6.1 x 5.2 cm. Th ere [...] is normal. Reported By: ESTEBAN VALERA M.D. 36-Vja-132720:56 CBC, Platelets & Auto Diff Comments: PATIENT NOT FASTINGClinical Information: ADD DARW FEE [id number] ADD J0 9725 PERFORMED BY: [facility] [id number] (51027) Baso (Absolute) 0.1 {x10E3/uL} (Normal) Range: 0.0-0.2 [...] 11.7-15.0 WBC 5.3 {x10E3/uL} (Normal) Range: 4.0-10.5 52-Klg-223989:56 Metabolic Panel, Comprehensive Comments: PATIENT NOT FASTINGPERFORMED BY: [facility] Frfotc[address] [id number] (55111) A/G Ratio 1.9 (Normal) Range: 1.1-2.5 Albumin, [...] Sodium, Serum 138 mmol/L (Normal) Range: 135-148 27-Nvp-260603:56 Lipid Panel (36012) Comments: PATIENT NOT FASTINGPERFORMED BY: [facility]save[facility] CenterDmdhab[address] [facility] [address] [id number] Cholesterol, Total 176 mg/dL (Normal) Range: 100-199 Comment SPRCS (Normal) Comments: HDL cholesterol values >59 mg/dL are associated with reduced cardiacrisk. HDL Cholesterol 67 mg/dL (Abnormal) Range: 40-59 LDL Cholesterol Calc 94 mg/dL (Normal) Range: 0-99 LDL/HDL Ratio 1.4 {ratio_units} (Normal) Range: 0.0-3.2 Triglycerides 74 mg/dL (Normal) Range: 0-149 VLDL Cholesterol Orlin 15 mg/dL (Normal) Range: 5-40 24-Tzd-055621:56 HELICOBACTER PYLORI ANTIBODY Comments: PATIENT NOT FASTINGPERFORMED BY: [facility]save[facility] Medical CenterQugrkx66[address] [facility] [id number] (59654) H. pylori IgG, Abs <0.9 U/mL (Normal) [...] Acute sinusitis Planned Observations Metabolic Panel, Comprehensive (54378)Indication: Jaundice On: :05 Request HEPATIC FUNCTION PANEL (30084)Indication: Jaundice On: :05 Request Lyme Disease Antibody W/ Reflex (79415)Indication: Tick bite On: 80-Qus-752718:04 Request Comments: 6 months PARATHORMONE (66824)Indication: Family history of hyperparathyroidism On: 65-Con-30730:45 Request Vitamin D Hydroxy (68532)Indication: Vitamin D deficiency On: 35-Ime-99775:45 Request HPV automatic (38339)Indication: Screening for HPV (human papillomavirus) (Renamed from Encounter for screening for human papillomavirus (HPV)) On: 16-Mux-480745:24 Request Thin prep Pap (11485) (no STD testing)Indication: Well woman exam On: 86-Fml-512433:02 Request HPV automatic (10082)Indication: Screening for HPV (human papillomavirus) On: 8-Gjk-614503:37 Request Thin prep Pap (73858)Indication: Well woman exam On: 9-Nhs-466739:37 Request MRSA Culture (36803)Indication: Unspecified open wound of other finger without damage to nail, initial encounter On: :53 Request LIPID PANEL (83179)Indication: xanthelasma On: :29 Request CBC WITH MANUAL DIFF (48544)Indication: Anemia On: :29 Request T3, FREE (TRIDOTHYRONINE) (39154)Indication: Thyroid nodule On: :29 Request T4, FREE (THYROXINE) (06385)Indication: Thyroid nodule On: :29 Request Anti-TPO Antibody (82925)Indication: Thyroid nodule On: :29 Request TSH (11400)Indication: Thyroid nodule On: :28 Request URINALYSIS (60947)Indication: Urinary frequency On: 51-Xlq-372830:30 Request Planned Procedures MAMMOGRAM BREAST BILATERAL SCREENING On: 27-Feb-2018 Intent DIGITAL (34416)By: Fast DO, Jovana A Fast DO, Jovana A CT - Abdomen (IV Contrast Needed)By: On: 09-Feb-2018 Intent Fast DO, Jovana A Fast DO, Jovana A Ultrasound - ThyroidBy: Fast DO, On: 14-Nov-2017 Intent Jovana A Fast DO, Jovana A ULTRASOUND, RIGHT BREAST (77354)By: On: 06-Nov-2017 Intent Louisa Pantoja Holter Monitor 24 hrsBy: Fast DO, On: 19-Jul-2016 Intent Jovana A Fast DO, Jovana A Echo CompleteBy: Fast DO, Jovana A On: 19-Jul-2016 Intent Fast DO, Jovana A EsophagramBy: Fast DO, Jovana A Fast On: 19-Jul-2016 Intent DO, Jovana A Comments: with 11 mm tablet SCREENING DIGITAL TOMOSYNTHESIS OF On: 19-Jul-2016 Intent BREAST (84023)By: Fast DO, Jovana A Fast DO, Jovana A EsophagramBy: Fast DO, Jovana A Fast On: 06-Nov-2015 Intent DO, Jovana A Comments: with 12 mm tablet Ultrasound - ThyroidBy: Fast DO, On: 20-Sep-2015 Intent Jovana A Fast DO, Jovana A MAMMOGRAM, SCREENING, BOTH BREAST On: 22-Feb-2015 Intent (72416)By: Fast DO, Jovana A Fast DO, Jovana A Toradol Injection, 30 mg (J1885)By: On: 30-Nov-2014 Intent Tiffanie Cevallos CNP Comments: given [facility] rt BIOPSY OF SKIN LESION, SINGLE On: 15-Mar-2013 Intent (20773)By: Tiffanie Cevallos CNP Breast Ultrasound - RightBy: [...] Cevallos CNP Comments: given left glut lot #[id number] exp Feb 05 Toradol Injection, 30 mg [...]
--- OUTSIDE RECORDS SUMMARY | 2018-05-05 22:27 | XMS RPT_ITS | Continuity of Care Document ---
:1965 Author Organization [facility] Address [address] [place] [address] Phone Care Team Providers Name Role Phone Jovana Puentes DO Unavailable Dr. Praveen Mills Unavailable Alyse Glaser Unavailable Unavailable Benita Gibbs Unavailable Unavailable Unavailable Unavailable Problems Name Dates Details Abdominal mass, RUQ (right upper quadrant) (R19.01, 789.31) Status: Active Abnormal finding on breast imaging (R92.8, 793.89) Status: Active Abortions/Miscarriages Comments: [facility] 88- Status: Active Adrenal adenoma, left (D35.02, 227.0) [...] days Quantity: 30 {Tablet} Refills: 6 Ordered:26-May-2017 Jane SOLIMAN, Jalyn Hutton Start : 26-May-2017 Active Vitamin D3 2000 [...] days Quantity: 30 {Tablet} Refills: 3 Ordered:05-Mar-2011 Tonja Rosa Start : 05-Mar-2011 End : 05-Mar-2011 Inactive [...] Mirna Wilcox Start : 29-Jun-2009 Inactive Nystatin 508724 UNIT/ML Mouth/Throat Suspension uad Suspension Suspension bid-tid [...] Quantity: 1 {For_Solution} Refills: 0 Ordered:02-Dec-2012 Fast DO Jovana AFast DO, Jovana A Start : 02-Dec-2012 End : 02-Dec-2012 Discontinued CORTISPORIN, 3.5-53187-6 (Otic Solution) 4 drops Solution tid to affected ear(s) for 7-10 days for 0 days Quantity: 1 {Solution} Refills: 1 Ordered:02-Dec-2012 Fast DO Jovana AFast DO, Jovana A Start : [...] Quantity: 90 {Capsule} Refills: 1 Ordered:02-Dec-2012 Fast DO Jovana AFast DO, Jovana A Start : [...] IV Contrast Result: Comments: See Note; NOTES: [facility] Imaging Services [address] [place] [address] Abdomen WITH IV Contrast MR#: [id number] Acct: [id number] Name: FAISAL HAYS Rep #: [id number] : 1965 F 52 From: Maciel Ramos MD PCP: Jovana Puentes DO Status: REG CLI Study: Abdomen WITH IV Contrast Date of Exam: 03/03/18 Exam# [id number] Ordering Dr: Jovana Puentes DO STUDY: CT [...] Service support , CC: Jovana Puentes DO General Ii Farmworker: Signed 03-Mar-2018 SCREENING MAMM (CAD), BILAT Result: Comments: See Note; NOTES: [facility] Imaging Services [address] [place] [address] SCREENING MAMM (CAD), BILAT MR#: [id number] Acct: [id number] Name: FAISAL HAYS Rep #: [id number] : 1965 F 52 From: Sergio Young MD PCP: Jovana Puentes DO Status: REG CLI Study: SCREENING MAMM (CAD), BILAT Date of Exam: 03/03/18 Exam# [id number] Ordering Dr: Jovana Puentes DO MAMM OGRAPHY [...] biopsy of a clinically suspicious a bnormality. [id number] Electronically Signed: Sergio Young MD at 15:41 EST Tel [phone], Service support , CC: Jovana Puentes DO General Ii Farmworker: Signed 06-Oct-2015 Thyroid Result: Comments: See Note; NOTES: [facility] Imaging Services [address] [place] [address] Verdana 4d Thyroid MR#: [id number] Acct: [id number] Name: FAISAL HAYS Rep #: [id number] : 1965 F 50 From: Jovani Cuba MD PCP: Jovana Puentes DO Status: REG CLI Study: Thyroid Date of Exam: 10/06/15 Exam# [id number] Ordering Dr: Jovana Puentes DO STUDY: THYROID [...] MD at 20:52 EDT , Service support [phone], CC: Jovana Puentes DO General Ii Farmworker: Signed 06-Mar-2015 Bilat Scrn Implant DIG AND CAD Result: Comments: See Note; NOTES: [facility] Imaging Services [address] [place] [address] Verdana 4d Bilat Scrn Implant DIG AND CAD MR#: [id number] Acct: [id number] Na me: FAISAL HAYS Rep #: [id number] : 1965 F 49 From: Sergio Young MD PCP: Jovana Puentes DO Status: REG CLI Study: Bilat Scrn Implant DIG AND CAD Date of Exam: 03/06/15 Exam# [id number] Ordering Dr: Jovana Puentes DO MAMMOGRAPHY - [...] Young MD at 15:44 EST Te l [phone], Service support [phone], CC: Jovana Puentes DO General Ii Farmworker: Signed Family History Unknown Family Member Name [...] Active Vital Signs Date Test Result Details 36-Ggg-956418:06 Temperature 97.8 f Comments: Method: Temporal Pulse [...] METABOLIC PANEL, Comments: PATIENT WAS FASTINGPERFORMED BY: BK Gunnlin6370 [facility] [id number] Information: NURSE DRAW COMPREHENSIVE (59286) ALT (SGPT) 18 [iU]/L (Normal) Range: 0-32 [...] 6-24 Glucose 96 mg/dL (Normal) Range: 65-99 60-Ilr-917985:26 CBC & PLATELETS (AUTO) Comments: PATIENT WAS FASTINGPERFORMED BY: LabCoRobert Wood Johnson University HospitalMkqidt4563 [facility] [id number] (86216) Platelets 237 {x10E3/uL} (Normal) Range: 150-379 RDW 13.5 % (Normal) Range: 12.3-15.4 MCHC 33.1 g/dL (Normal) Range: 31.5-35.7 MCH 31.8 pg (Normal) Range: 26.6-33.0 MCV 96 fL (Normal) Range: 79-97 Hematocrit 40.8 % (Normal) Range: 34.0-46.6 Hemoglobin 13.5 g/dL (Normal) Range: 11.1-15.9 RBC 4.24 {x10E6/uL} (Normal) Range: 3.77-5.28 WBC 6.0 {x10E3/uL} (Normal) Range: 3.4-10.8 60-Fzu-700791:04 HEPATIC FUNCTION PANEL Comments: PATIENT NOT FASTINGPERFORMED BY: The RealRealMetropolitan Saint Louis Psychiatric CenterLbclmc0926 [facility] [id number] (16558) ALT (SGPT) 12 [iU]/L (Normal) Range: 0-32 AST (SGOT) 14 [iU]/L (Normal) Range: 0-40 Alkaline Phosphatase, S 53 [iU]/L (Normal) Range: 39-117 Bilirubin, Direct 0.10 mg/dL (Normal) Range: 0.00-0.40 Bilirubin, Total 0.3 mg/dL (Normal) Range: 0.0-1.2 Albumin, Serum 4.4 g/dL (Normal) Range: 3.5-5.5 Protein, Total, Serum 6.7 g/dL (Normal) Range: 6.0-8.5 :04 HEPATITIS PANEL (34289) Comments: PATIENT NOT FASTINGPERFORMED BY: [facility]RealMymich[facility] Clare6370 [facility] [id number] Hep C Virus Ab <0.1 {s/co_ratio} (Normal) Range: 0.0-0.9 Comments: Negative: < 0.8 Indeterminate: 0.8 - 0.9 Positive: > 0.9 . The CDC recommends that a positive HCV antibody result be followed up with a HCV Nucleic Acid Amplification test (705278). Hep B Core Ab, IgM Negative (Normal) HBsAg Screen Negative (Normal) Hep A Ab, IgM Negative (Normal) 76-Ulb-770451:09 Lyme Disease Antibody W/ Comments: 6 weeks; PATIENT NOT FASTINGPERFORMED BY: [facility]RealMym[facility] Clare6370 [facility] [id number] Reflex (67547) Lyme IgG/IgM Ab <0.91 {ISR} (Normal) Range: 0.00-0.90 Comments: Negative <0.91 Equivocal 0.91 - 1.09 Positive >1.09 54-Zgq-606159:50 Lyme Disease Antibody W/ Comments: PATIENT NOT FASTINGPERFORMED BY: [facility]6370 [facility] [id number] Reflex (39568) Lyme IgG/IgM Ab <0.91 {ISR} (Normal) Range: 0.00-0.90 Comments: Negative <0.91 Equivocal 0.91 - 1.09 Positive >1.09 3-Djv-780218:30 CBC WITH MANUAL DIFF Comments: PATIENT NOT FASTINGPERFORMED BY: LabCoRobert Wood Johnson University HospitalUndoqi2338 [facility] [id number] Information: NURSE DRAW; [facility] labs- all normal (59505) Immature Grans (Abs) 0.0 {x10E3/uL} (Normal) Range: [...] 3.77-5.28 WBC 6.1 {x10E3/uL} (Normal) Range: 3.4-10.8 8-Tne-039433:30 Metabolic Panel, Comprehensive Comments: PATIENT NOT FASTINGPERFORMED BY: [facility]Real[facility] Clare6370 [facility] [id number] (98759) ALT (SGPT) 16 [iU]/L (Normal) Range: 0-32 [...] Glucose, Serum 90 mg/dL (Normal) Range: 65-99 32-Ftp-018406:41 SONI CULTURE-OTHER (02158) Comments: PATIENT NOT FASTINGPERFORMED BY: LabMymichigan Medical Center Clare6370 [facility] [id number] Information: SRC: Result 1 RRF (Normal) Comments: Routine respiratory anali Upper Respiratory Culture Final report (Normal) 02-Qlz-94243:05 PAP I-G HPV Hi Risk Comments: CYTOLOGY INFORMATION:- CLINICAL INFORMATION:- DATE LMP/MENOPAUSE: LMP no information on requiredinformation.- COLLECTION VIAL: Thin Prep Vial- TRIM LINE WORKER SOURCE: CERVICAL- COLLECTION TECHNIQUE: BRUSH ONLYSp ecimen Comment: [id number] Comment: No. of containers..01 CYTYC Thin Prep VialLabCorp (refer to report for specific site)refer to report for address and phone number HPV HC,HGH RISK Negative Comments: This high-risk HPV test detects thirteen high-risk types(16/18/31/33/35/39/45/51/52/56/58/59/68) withoutdifferentiation.Performed at: [address] [id number] (Normal) b Director: María Elena Jones MD, Phone: [phone] at: =[facility] Lab[address] [id number] Director: María Elena Jones MD, Phone: [phone] PAPSMR Comment Comments: The Pap smear is [...] R87.5 (Normal) PERFORM Comment Comments: Karen Javier, Bakery Team Member (ASCP) (Normal) ADEQ Comment Comments: Satisfactory for evaluation. Endocervical and/or squamous metaplasticcells (endocervical component) are present. (Normal) DIAGN Comment Comments: NEGATIVE FOR INTRAEPITHELIAL LESION AND MALIGNANCY.FUNGAL ORGANISMS MORPHOLOGICALLY CONSISTENT WITH RADHA SPECIES AREPRESENT.CELLULAR CHANGES ASSOCIATED WITH INFLAMMATION ARE PRESENT. (Normal) 40-Cee-217605:38 Pathology Report Comments: PERFORMED BY: FanergiesMERCY [facility] LabOur [facility] Cyto Iykke79910 [facility] [id number] Information: [id number] See MATER Comments: Material submitted: .SHAVE BX [...] in a single cassette./LMSLMS/LMSPathologist provided ICD-9:173.99, 173.81CPT .586562 8-Lav-842317:17 PAPIG3 Comments: Specimen Comment: No. of containers..01 CYTYC Thin Prep Vial tHPVHR Negative (Normal) Comments: This high-risk HPV test detects thirteen high-risk types(16/18/31/33/35/39/45/51/52/56/58/59/68) withoutdifferentiation..Performed at: - Lab[address] [id number] Director: Papi Lopez MD, Phone: [phone] at: = - LabCo[address] [id number] Director: Papi Lopez MD, Phone: [phone] [facility] Comment (Normal) Comments: The Pap smear is [...] tQC Comment (Normal) Comments: Keyana Solis, Supervisory Bakery Team Member (ASCP) tADEQ Comment (Normal) Comments: Satisfactory for evaluation. Endocervical and/or squamous metaplasticcells (endocervical component) are present. tPERFORM Comment (Normal) Comments: Fatemeh Nunez, Bakery Team Member (ASCP) tDIAG Comment (Normal) Comments: NEGATIVE FOR INTRAEPITHELIAL LESION AND MALIGNANCY.THIS SPECIMEN WAS RESCREENED PART OF OUR CLIMATE CHANGE RISK ASSESSOR PROGRAM. :11 LIPID PANEL (85188) Comments: PATIENT WAS FASTINGPERFORMED BY: InktdFormerly [facility] [id number] LDL/HDL Ratio 2.0 {ratio_units} (Normal) Range: 0.0-3.2 LDL Cholesterol Calc 115 mg/dL (Abnormal) Range: 0-99 HDL Cholesterol 58 mg/dL (Normal) Comments: According to ATP-III Guidelines, HDL-C >59 mg/dL is considered anegative risk factor for CHD. VLDL Cholesterol Orlin 18 mg/dL (Normal) Range: 5-40 Cholesterol, Total 191 mg/dL (Normal) Range: 100-199 Triglycerides 89 mg/dL (Normal) Range: 0-149 :11 Anti-TPO Antibody (56304) Comments: PATIENT WAS FASTINGPERFORMED BY: InktdFormerly [facility] [id number] Thyroid Peroxidase (TPO) Ab 7 {IU/mL} (Normal) Range: 0-34 :11 TSH (89751) Comments: PATIENT WAS FASTINGPERFORMED BY: InktdFormerly [facility] [id number] TSH 1.200 {uIU/mL} (Normal) Range: 0.450-4.500 :11 T4, FREE (THYROXINE) (74537) Comments: PATIENT WAS FASTINGPERFORMED BY: [facility]6370 [facility] [id number] T4,Free(Direct) 1.10 ng/dL (Normal) Range: 0.82-1.77 :11 T3, FREE (TRIDOTHYRONINE) (16058) Comments: PATIENT WAS FASTINGPERFORMED BY: [facility]6370 [facility] [id number] Triiodothyronine,Free,Serum 2.8 pg/mL (Normal) Range: 2.0-4.4 :11 CBC WITH MANUAL DIFF Comments: PATIENT WAS FASTINGPERFORMED BY: [facility]6370 [facility] [id number] Information: [id number],Z60801 (09882) Immature Grans (Abs) 0.0 {x10E3/uL} (Normal) Range: [...] 3.77-5.28 WBC 5.6 {x10E3/uL} (Normal) Range: 4.0-10.5 37-Rhz-38526:11 METABOLIC PANEL, COMPREHENSIVE Comments: PATIENT WAS FASTINGPERFORMED BY: LabCoRobert Wood Johnson University HospitalAnuvnn3562 [facility] [id number] (10781) ALT (SGPT) 10 [iU]/L (Normal) Range: 0-32 [...] (Normal) Range: 65-99 :11 Vitamin D Hydroxy (93365) Comments: PATIENT WAS FASTINGPERFORMED BY: [facility] Cavwtz1239 [facility] Careblin [place] [id number] Vitamin D, 25-Hydroxy 34.1 ng/mL (Normal) Range: 30.0-100.0 Comments: Vitamin D deficiency has been defined by the [place] of[place]icine and an Endocrine Society practice guideline as alevel of serum 25-OH vitamin D less than 20 ng/mL (1,2).The Endocrine Society went on to further define vitamin Dinsufficiency as a level between 21 and 29 ng/mL (2).1. IOM ([place] of Medicine). 2010. Dietary reference intakes for calcium and D. [place]: The National [employer].2. Nicole MF, Dakotah IZAGUIRRE, Ra CESPEDES, et al. Evaluation, treatment, and prevention of vitamin D deficiency: an Endocrine Society clinical practice guideline. JCEM. 2010; 96(7):1911-30. :11 PARATHORMONE (53593) Comments: PATIENT WAS FASTINGPERFORMED BY: LabCo Wfuptx6156 [facility] [id number] PTH, Intact 25 pg/mL (Normal) Range: 15-65 57-Ady-951148:51 MRSAD tMRSA Negative (Normal) SOURCE: NASAL SWAB (Normal) 3-Szb-571371:27 THYROID Radiology Report See Note (Normal) Comments: [...] Young M.D.January 28, 2012 at 3:57:09 PM [id number] nically Signed GP/GP If you are the referring physician and would like to consult with theradiologist who provided this interpretation, please contact Kosta Cifuentes at [phone]. If this ra diologist is unavailable, youwill be directed to another radiologist to assist. If you are a patient with a question regarding this report, pleasecontactyour referring physician directly. Professional I nterpretation Provided By: [employer], Phone , These documents contain legally protected [...] 01/28/12 1604 Sign by: Sergio Young MD 91-Ddm-51237:44 Pathology Report Comments: PERFORMED BY: [facility] LabCoJackson [facility] Bujs68951 [facility] [id number] BY: [facility] Dept Of Omctul[address] [place] [address] [id number] Clinical Inf ormation: [id number] See MATER Comments: Material submitted: .PUNCH BIOPSYY OF LEFT BACK SHOULDERClinical history: .IRRITATED MOLEFAST GROWING CRUSTY MOL Note (Normal) EFOR MARGINSDiagnosis:INFLAMED AND IRRITATED SEBORRHEIC KERATOSIS.[facility]/10/24/2011 Electronically signed: .Kat Low MD, DermatopathologistGross description: .RECEIVED IN ORMALIN LABELED FAISAL HAYS WITHOUT SITEIDENTIFIED ON THE CONTAINER DESIGNATED LEFT BACK SHOULDER ON THEREQUISITION IS A HOLGUIN/BROWN SKIN PUNCH MEASURING 0.4 CM INDIAMETER EXCISED TO A DEPTH OF 0.7 CM. THE SPECIMEN IS INKEDBLACK AT THE MARGIN, BISECTED AND ENTIRELY SUBMITTED..APA/JASPathologist provided ICD-9:702.11CPT .157091 57-Aku-673429:29 Urinalysis, Office (01126) UA - BILIRUBIN Negative (Normal) UA - BLOOD Hemolyzed Moderate (Normal) UA - GLUCOSE Negative (Normal) UA - KETONES Negative mg/dL (Normal) UA - LEUKOCYTE ESTERASE Moderate (Normal) UA - NITRITE Negative (Normal) UA - PH 6.0 (Normal) UA - PROTEIN Negative mg/dL (Normal) UA - SPECIFIC GRAVITY 1.025 (Normal) URINE UROBILINGN MURIEL TIMED Normal mg/dL (Normal) 0-Hpw-304863:26 HCV Antibody Comments: PERFORMED BY: LabCoRobert Wood Johnson University HospitalEpbacu5255 [facility] [id number] Hep C Virus Ab <0.1 {s/co_ratio} Range: 0.0-0.9 (Normal) Comments: Negative: < 0.8Indeterminate 0.8 - 0.9Positive: > 0.9.In order to reduce the incidence of a false positiveresult, the CDC recommends that all s/co ratiosbetween 1.0 and 10.9 be confirmed with additionalRIBA or PCR testing. : Hep B Surface Ab 0.59 {Index_Value} Comments: PERFORMED BY: SNADEC70 [facility] [id number] 26 (Normal) Range: 0.00-0.99 Comments: Status of Immunity Anti-HBs Level Inconsistent with Immunity 0.00 - 0.99Consistent with Immunity >0.99.An Index Value of 1.00 is equivalent to 10 mIU/mL.However the magnitude of the Index Value is notindicative of the total amount of antibody present. :26 Panel [id number] Comments: PERFORMED BY: [employer]6370 [facility] [id number] HIV 1/O/2 Abs, Qual Non Reactive (Normal) HIV 1/O/2 Abs-Index Value <1.00 (Normal) Comments: Index Value: Specimen reactivity relative to the negative cutoff. :15 URINE SONI CULTURE-MURIEL COL Comments: PATIENT NOT FASTINGPERFORMED BY: [facility] Fvrlbe5969 [facility] [id number] Information: SRC: [id number] COUNT (44299) Antimicrobial MIHEAD (Normal) Comments: S = Susceptible; [...] mL (Normal) Urine Final report (Normal) Culture,Comprehensive 66-Hrr-34784:16 Urinalysis, Office (71254) UA - LEUKOCYTE ESTERASE Moderate (Normal) UA - NITRITE Negative (Normal) URINE UROBILINGN MURIEL TIMED Normal mg/dL (Normal) UA - PROTEIN Trace mg/dL (Normal) UA - PH 6.0 (Normal) UA - BLOOD Hemolyzed Large (Normal) UA - SPECIFIC GRAVITY 1.005 (Normal) UA - KETONES Negative mg/dL (Normal) UA - BILIRUBIN Negative (Normal) UA - GLUCOSE Negative (Normal) 58-Jdp-417984:37 SPINE,LUMBAR (ROUTINE) Radiology Report See Note (Normal) Comments: Exam Number: [id number] CLINICAL: Low back pain since April, severe [...] other level. Reported By: HIPOLITO SCOTT M.D. 54-Lnu-86171:12 BILAT SCRN IMPLANT DIG & CAD Radiology Report See Note (Normal) Comments: Exam Number: [id number] MAMMOGRAM, BILATERAL SCREENING IMPLANT DIGITAL AND CAD [...] werealso examined with computer-a ided detection software ([employer] Reported By: ESTEBAN VALERA M.D. 7-Jvr-131122:02 THYROID () Radiology Report See Note (Normal) Comments: Exam Number: [id number] THYROID ULTRASOUND HISTORYThyromegaly. High resolution real-time linear [...] be performed. Reported By: ESTEBAN VALERA M.D. 07-Mfv-484731:31 Hepatic Function Panel (7) Comments: PATIENT WAS FASTINGPERFORMED BY: LabMymichigan Medical Center Clare6370 [facility] [id number] Albumin, Serum 4.6 g/dL (Normal) Range: 3.5-5.5 Alkaline Phosphatase, S 50 [iU]/L (Normal) Range: 25-150 ALT (SGPT) 13 [iU]/L (Normal) Range: 0-40 AST (SGOT) 14 [iU]/L (Normal) Range: 0-40 Bilirubin, Direct 0.15 mg/dL (Normal) Range: 0.00-0.40 Bilirubin, Total 0.6 mg/dL (Normal) Range: 0.1-1.2 Protein, Total, Serum 6.8 g/dL (Normal) Range: 6.0-8.5 14-Nmb-239103:52 ABDOMEN COMPLETE Radiology Report See Note (Normal) Comments: Exam Number: [id number] COMPLETE ABDOMINAL ULTRASOUND HISTORYAbdominal pain. High resolution [...] 4.2 x 5.5 cm. The left kidney lnmadqlz51.4 x 6.1 x 5.2 cm. Th ere [...] is normal. Reported By: ESTEBAN VALERA M.D. 76-Edv-490334:56 CBC, Platelets & Auto Diff Comments: PATIENT NOT FASTINGClinical Information: ADD DARW FEE [id number] ADD J0 7604 PERFORMED BY: LabMymichigan [facility] Clare6370 [facility] [id number] (75183) Baso (Absolute) 0.1 {x10E3/uL} (Normal) Range: 0.0-0.2 [...] 11.7-15.0 WBC 5.3 {x10E3/uL} (Normal) Range: 4.0-10.5 08-Cbc-378607:56 Metabolic Panel, Comprehensive Comments: PATIENT NOT FASTINGPERFORMED BY: LabCoRobert Wood Johnson University HospitalPnvzef1530 [facility] [id number] (07954) A/G Ratio 1.9 (Normal) Range: 1.1-2.5 Albumin, [...] Sodium, Serum 138 mmol/L (Normal) Range: 135-148 85-Jot-986510:56 Lipid Panel (60950) Comments: PATIENT NOT FASTINGPERFORMED BY: The RealRealMymichigan Medical Center Clare6370 [facility] [id number] Cholesterol, Total 176 mg/dL (Normal) Range: 100-199 Comment SPRCS (Normal) Comments: HDL cholesterol values >59 mg/dL are associated with reduced cardiacrisk. HDL Cholesterol 67 mg/dL (Abnormal) Range: 40-59 LDL Cholesterol Calc 94 mg/dL (Normal) Range: 0-99 LDL/HDL Ratio 1.4 {ratio_units} (Normal) Range: 0.0-3.2 Triglycerides 74 mg/dL (Normal) Range: 0-149 VLDL Cholesterol Orlin 15 mg/dL (Normal) Range: 5-40 08-Pnm-137108:56 HELICOBACTER PYLORI ANTIBODY Comments: PATIENT NOT FASTINGPERFORMED BY: LabMymichigan [facility] Center Clare6370 [facility] [id number] (63708) H. pylori IgG, Abs <0.9 U/mL (Normal) [...] Well woman exam : *Well Female Maintenance ([facility]) Indication: Well woman exam Well woman exam [...] Acute sinusitis Planned Observations Metabolic Panel, Comprehensive (69675)Indication: Jaundice On: :05 Request HEPATIC FUNCTION PANEL (94566)Indication: Jaundice On: :05 Request Lyme Disease Antibody W/ Reflex (78250)Indication: Tick bite On: :04 Request Comments: 6 months PARATHORMONE (60932)Indication: Family history of hyperparathyroidism On: :45 Request Vitamin D Hydroxy (82507)Indication: Vitamin D deficiency On: :45 Request HPV automatic (08211)Indication: Screening for HPV (human papillomavirus) (Renamed from Encounter for screening for human papillomavirus (HPV)) On: 68-Pbt-987012:24 Request Thin prep Pap (15939) (no STD testing)Indication: Well woman exam On: 04-Qsp-102309:02 Request HPV automatic (46579)Indication: Screening for HPV (human papillomavirus) On: 0-Dft-652318:37 Request Thin prep Pap (15421)Indication: Well woman exam On: :37 Request MRSA Culture (94051)Indication: Unspecified open wound of other finger without damage to nail, initial encounter On: :53 Request LIPID PANEL (05329)Indication: xanthelasma On: :29 Request CBC WITH MANUAL DIFF (40949)Indication: Anemia On: :29 Request T3, FREE (TRIDOTHYRONINE) (78035)Indication: Thyroid nodule On: : Request T4, FREE (THYROXINE) (51478)Indication: Thyroid nodule On: :29 Request Anti-TPO Antibody (07553)Indication: Thyroid nodule On: :29 Request TSH (61016)Indication: Thyroid nodule On: 86-Xaa-419599:28 Request URINALYSIS (26469)Indication: Urinary frequency On: 49-Ptl-565274:30 Request Planned Procedures ESOPHAGRAM (72534)By: Fast DO, Jovana On: 13-Mar-2018 Intent A Fast DO, Jovana A Comments: with 12 mm tablet MAMMOGRAM BREAST BILATERAL SCREENING On: 27-Feb-2018 Intent DIGITAL (90801)By: Fast DO, Jovana A Fast DO, Jovana A CT - Abdomen (IV Contrast Needed)By: On: 09-Feb-2018 Intent Fast DO, Jovana A Fast DO, Jovana A Ultrasound - ThyroidBy: Fast DO, On: 14-Nov-2017 Intent Jovana A Fast DO, Jovana A ULTRASOUND, RIGHT BREAST (17081)By: On: 06-Nov-2017 Intent Louisa Pantoja Holter Monitor 24 hrsBy: Fast DO, On: 19-Jul-2016 Intent Jovana A Fast DO, Jovana A Echo CompleteBy: Fast DO, Jovana A On: 19-Jul-2016 Intent Fast DO, Jovana A EsophagramBy: Fast DO, Jovana A Fast On: 19-Jul-2016 Intent DO, Jovana A Comments: with 11 mm tablet SCREENING DIGITAL TOMOSYNTHESIS OF On: 19-Jul-2016 Intent BREAST (29180)By: Fast DO, Jovana A Fast DO, Jovana A EsophagramBy: Fast DO, Jovana A Fast On: 06-Nov-2015 Intent DO, Jovnaa A Comments: with 12 mm tablet Ultrasound - ThyroidBy: Fast DO, On: 20-Sep-2015 Intent Jovana A Fast DO, Jovana A MAMMOGRAM, SCREENING, BOTH BREAST On: 22-Feb-2015 Intent (51762)By: Fast DO, Jovana A Fast DO, Jovana A Toradol Injection, 30 mg (J1885)By: On: 30-Nov-2014 Intent Tiffanie Cevallos CNP Comments: given [facility] rt BIOPSY OF SKIN LESION, SINGLE On: 15-Mar-2013 Intent (48351)By: Tiffanie Cevallos CNP Breast Ultrasound - RightBy: [...] Comments: Injection given in right gluteus lewis. OB Toradol Injection, 30 mg (J1885)By: On: 04-Sep-2009 Intent Tiffanie Cevallos CNP Comments: given left glut lot #[id number] exp Feb 05 Toradol Injection, 30 mg [...] Indication: Breast pain Encounters Office Visit On: 13-Mar-2018 13:38 Encounter Reason: [...] years ago- maybe 10- had gone to [facility] regularly- low back and left buttocks- heated [...] for 1 weeks. Encounter Diagnosis: Abdominal Pain,General (129.07) [facility]
--- OUTSIDE RECORDS SUMMARY | 2018-05-05 22:28 | XMS RPT_ITS ---
:1965 Author Organization OH[facility] Care Team Providers Name Role Phone Fast DO, Jovana A Attending Unavailable Fast DO, Jovana A Referring Unavailable Fast DO, Jovana A Consulting Unavailable Fast, Jovana Attending Unavailable Fast, Jovana Referring Unavailable Fast, Jovana Primary Care Unavailable Fast, Jovana Attending Unavailable Fast, Jovana Referring Unavailable Fast, Jovana Primary Care Unavailable Fast, Jovana Attending Unavailable Fast, Jovana Primary Care Unavailable Purpose Purpose PROBLEMS PROBLEMS No Problem Records FoundPROCEDURES PROCEDURES No Procedure Records FoundVITAL SIGNS VITAL SIGNS No Vital Signs Records FoundRESULTS RESULTS ESOPHAGUS ONLY Observed: 03/24/2018 Status: F Source: YOBANY 9:14 AM [facility] Imaging Services [address] [place] [address] Esophagus Only MR#: [id number] Acct: [id number] Name: FAISAL WILLIS Rep #: [id number] : 1965 F 52 From: Sergio Young MD PCP: Fast DO,Jovana Status: REG CLI Study: Esophagus Only Date of Exam: 03/24/18 Exam# [id number] Ordering Dr: Jovana Puentes DO STUDY: X-RAY - ESOPHAGUS (BARIUM SWALLOW) WITH FLUOROSCOPY REASON FOR EXAM: Female, 52 years old. Dysphasia. TECHNIQUE: 18 view(s) of the esophagus were obtained following swallowing of barium. FLUOROSCOPY TIME (if supplied): (0:30) minutes/seconds COMPARISON: None. FINDINGS: There is no demonstrated esophageal foreign body. There is no demonstrated stricture or mucosal abnormality. There is a small hiatal hernia of the fundus of the stomach. There is evidence of gastroesophageal reflux up to the mid esophagus. A web is seen at the gastroesophageal junction. The patient ingested a 12 mm tablet of barium. The tablet is trapped at the gastroesophageal junction. Normal visualized aortic arch and descending thoracic aorta. Normal visualized pulmonary parenchyma. There are diffuse degenerative changes of the visualized thoracic spine. RAD/Esophagus Only IMPRESSION: Small sliding hiatal hernia with a moderate degree of gastroesophageal reflux. A wet is seen at the gastroesophageal junction with trapping of the 12 mm tablet of barium at that site. Electronically Signed: Sergio Young MD at 13:23 EST Tel [phone], Service support , CC: Jovana Puentes DO Credit Collections Specialist: Signed ABDOMEN WITH IV Observed: 03/03/2018 Status: F Source: YOBANY CONTRAST 12:16 PM [facility] RE[facility]IT[facility] Imaging Services [address] [place] [address] Abdomen WITH IV Contrast MR#: [id number] Acct: [id number] Name: FAISAL WILLIS Rep #: [id number] : 1965 F 52 From: Maciel Ramos MD PCP: Jovana Puentes DO Status: REG CLI Study: Abdomen WITH IV Contrast Date of Exam: 03/03/18 Exam# [id number] Ordering Dr: Fast,Jovana DO STUDY: CT ABDOMEN WITH CONTRAST REASON FOR EXAM: Female, 52 years old. Abdominal bulge RADIATION DOSAGE (If Supplied By Facility): CTDIvol = ( 11.83 ) mGy, DLP = ( 521.39 ) mGycm TECHNIQUE: Transaxial images were obtained post I.V. administration of 100 ml of Isovue 300 contrast, and oral contrast. Sagittal and coronal images were reconstructed. Individualized dose optimization techniques were used for this CT. COMPARISON: None. FINDINGS: Bilateral breast implants. The right implant is ruptured (extracapsular). There is subsequent tracking of the fluid into the subcutaneous space in the right upper quadrant and hence the clinical history of the right upper quadrant bulge The liver is normal. No dilated intrahepatic biliary radicles. The gallbladder is normal with no calcifications within it. There is no pericholecystic fluid collection or streakiness The spleen is normal. The pancreas is normal. A 1.1 cm left adrenal nodule There is a left-sided extrarenal pelvis and a tiny right benign cyst. The stomach is normal. There is no bowel distention, acute appendicitis or diverticulitis. No constricting lesions are seen in large bowel. The abdominal wall is intact with no hernias. There is no ascites or any free intraperitoneal air. No indication of epiploic appendagitis The vascular structures in the retroperitoneum are normal. There is no retrocrural, retroperitoneal or mesenteric adenopathy. The bones and joints are normal. . CT/Abdomen WITH IV Contrast IMPRESSION: Extracapsular rupture of a right breast implant with collection of fluid within the subcutaneous tissues over the right lower chest wall. This has created the clinically palpable bulge mentioned in the history. Electronically Signed: Maciel Ramos MD at 6:57 EST Tel , Service support , CC: Jovana Puentes DO Credit Collections Specialist: Signed SCREENING MAMM (CAD), Observed: 03/03/2018 Status: F Source: YOBANY ALLEN 11:41 AM [facility] Imaging Services [address] [place] [address] SCREENING MAMM (CAD), BILAT MR#: [id number] Acct: [id number] Name: FAISAL WILLIS Rep #: [id number] : 1965 F 52 From: Sergio Young MD PCP: Jovana Puentes DO Status: REG CLI Study: SCREENING MAMM (CAD), BILAT Date of Exam: 03/03/18 Exam# [id number] Ordering Dr: Jovana Puentes DO MAMMOGRAPHY - BILATERAL SCREENING REASON FOR EXAM: Female, 52 years old. Routine annual screening examination. PERTINENT HISTORY: Mother with breast cancer. Remote right excisional breast biopsy. Bilateral breast implants. TECHNIQUE: Digital bilateral breast ki (3D mammographic acquisition) in the CC and MLO projections. 2-D mediolateral oblique (MLO) and craniocaudad (CC) views of both breasts were obtained. CAD: Full Field Digital Mammography with Computer Added Detection was performed. COMPARISON: Comparison is made with prior study dated March 06, 2015. FINDINGS: Breast Composition: There are scattered areas of fibroglandular density. There are no dominant masses or suspicious calcifications. Stable appearance of the bilateral breast implants. No other significant abnormalities are identified. There has been no significant change since the prior study. BI/SCREENING MAMM (CAD), BILAT IMPRESSION: Stable bilateral screening mammogram. Yearly follow-up mammogram recommended. (A) ASSESSMENT CATEGORY: BIRADS Category 2: Benign. A letter regarding these results will be sent to the patient by the facility within 30 days. Approximately 10% of breast cancers are not detected by mammography. A normal mammogram should not delay biopsy of a clinically suspicious abnormality. [id number] Electronically Signed: Sergio Young MD at 15:41 EST Tel [phone], Service support , CC: Jovana Puentes DO Credit Collections Specialist: Signed ALLERGIES ALLERGIES No Allergies Records FoundENCOUNTERS ENCOUNTERS ADMIT/DISCHARGE ACCOUNT ADMITTING ENCOUNTER LOCATION SOURCE NUMBER CLASS 03/27/2018 [id number] Ambulatory Building:[facility] OHIP Practices Repository 03/24/2018 [id number] Ambulatory [facility] 2 [facility] ing:RAD Repository 03/03/2018 [id number] Ambulatory [facility] 0 [facility] ing:CT Repository 03/03/2018 [id number] [facility] 0 [facility] ing:OPBI Repository FUNCTIONAL STATUS FUNCTIONAL STATUS No Functional Status Records FoundEQUIPMENT EQUIPMENT No Equipment Records FoundPAYERS PAYERS ENCOUNTER GUARANTOR PAYER SUBSCRIBER SOURCE 03/27/2018 FAISAL Hutton Primary FAISAL Hutton [facility]IP Practices SPENCERDOB: Insurance:[employer] SPENCERDOB: Repository [id number] icy Number: [id number] [facility] [id number] e Date:6918[place]60[place] Name:[place], [place] [address]Vyw: [phone] [address] [place] [address]Clf: () [phone]: () [phone] 03/27/2018 Secondary FAISAL Hutton [facility]IP Practices Insurance:[employer] SPENCERDOB: Repository icy Number: [id number] [address] Date:2006-03-28 [facility] [id number], [place] Name:[facility] [address]Yie: [address] [place] [address] ~(3 [phone]: [phone] 03/27/2018 Tertiary FAISAL Anni [facility]IP Practices Insurance:[place] SPENCERDOB: [facility]ository [facility] Number: [id number] [address] Date:2016-04-28 [place] 6759-55-93[place], [place] Name:TRINI [place] [address]Nem: [address], [place] ~(0 [phone]: [phone] 03/24/2018 FAISAL Hutton Primary FAISAL Hutton [place] [id number] Insurance:[employer] SPENCERDOB: Community [address] icy Number: [id number], [id number] [place] [address]Rfr: e Date:5050-09-20CG [address] () [address]LQ: 03/24/2018 Secondary NOT GIVENUNK [place] Insurance:SELF PAY [facility] Number: Effective Repository Date:2018-03-17 03/03/2018 FAISAL Hutton Primary FAISAL Hutton [place] [id number] Insurance:[employer]Pol SPENCERDOB: Community [address] icy Number: [id number] [facility], [id number] Repository [place] [address]Ozi: e Date:0189-00-91SX [address] () [phone]: 03/03/2018 Secondary NOT GIVENUNK [place] Insurance:SELF PAY [facility] Number: Effective Repository Date:2018-02-09 03/03/2018 Faisal Hutton Primary Faisal Hutton [place] [id number] Insurance:AULTCAREPol SpencerDOB: Community [address] icy Number: [id number], [id number] [place]ository [place] [address]Qss: e Date:6118-77-16MW [address] () [address]BE: 03/03/2018 Secondary NOT GIVENUNK [place] Insurance:SELF PAY [facility] Number: Effective Repository Date:2018-01-30 SOCIAL HISTORY SOCIAL HISTORY No Social History Records FoundFAMILY HISTORY FAMILY HISTORY No Family History Records FoundADVANCE DIRECTIVES ADVANCE DIRECTIVES No Advanced Directives Records FoundINFORMATION SOURCE INFORMATION SOURCE DATE CREATED AUTHOR AUTHOR'S ORGANIZATION 04/14/2018 NELLIP
--- OUTSIDE RECORDS SUMMARY | 2018-05-05 22:28 | XMS RPT_ITS | Continuity of Care Document ---
:1965 Author Organization [facility] Address [address] [place] [address] Phone Care Team Providers Name Role Phone Jovana Puentes DO Unavailable SEEMA Sahu Unavailable Unavailable Benita Gibbs Unavailable Unavailable Alyse Glaser Unavailable Unavailable Unavailable Unavailable Problems Name Dates Details Abdominal mass, RUQ (right upper quadrant) (R19.01, 789.31) Status: Active Abnormal finding on breast imaging (R92.8, 793.89) Status: Active Abortions/Miscarriages Comments: [facility] - Status: Active Anxiety (F41.9, 300.00) Status: [...] Ordered:19-Jan-2010 BrendenMirna Start : 29-Jun-2009 Inactive Nystatin 019503 UNIT/ML Mouth/Throat Suspension uad Suspension Suspension bid-tid [...] : 02-Dec-2012 End : 02-Dec-2012 Discontinued CORTISPORIN, 3.5-14015-8 (Otic Solution) 4 drops Solution tid to [...] 06-Oct-2015 Thyroid Result: Comments: See Note; NOTES: [facility] Imaging Services [address] [place] [address] Verdana 4d Thyroid MR#: [id number] Acct: [id number] Name: FAISAL HAYS Rep #: [id number] : 1965 F 50 From: Jovani Cuba MD PCP: Jovana Puentes DO Status: REG CLI Study: Thyroid Date of Exam: 10/06/15 Exam# [id number] Ordering Dr: Jovana Puentes DO STUDY: THYROID [...] MD at 20:52 EDT , Service support [phone], CC: Jovana Puentes DO Stone Engraver: Signed 06-Mar-2015 Bilat Scrn Implant DIG AND CAD Result: Comments: See Note; NOTES: [facility] Imaging Services [address] [place] [address] Verdana 4d Bilat Scrn Implant DIG AND CAD MR#: [id number] Acct: [id number] Na me: FAISAL HAYS Rep #: [id number] : 1965 F 49 From: Sergio Young MD PCP: Jovana Puentes DO Status: REG CLI Study: Bilat Scrn Implant DIG AND CAD Date of Exam: 03/06/15 Exam# [id number] Ordering Dr: Jovana Puentes DO MAMMOGRAPHY - [...] Young MD at 15:44 EST Te l [id number], Service support [phone], CC: Jovana Puentes DO Stone Engraver: Signed Family History Unknown Family Member Name [...] 0.00 cm Results Date Description Value Details 83-Juz-089581:26 METABOLIC PANEL, Comments: PATIENT WAS FASTINGPERFORMED BY: LabCoDeborah [facility] and Lung CenterFxglur8199 [facility] [id number] Information: NURSE DRAW COMPREHENSIVE (38884) ALT (SGPT) 18 [iU]/L (Normal) Range: 0-32 [...] 6-24 Glucose 96 mg/dL (Normal) Range: 65-99 61-Bok-075332:26 CBC & PLATELETS (AUTO) Comments: PATIENT WAS FASTINGPERFORMED BY: [facility] Tpgmtx8555 [facility] [id number] (17245) Platelets 237 {x10E3/uL} (Normal) Range: 150-379 RDW 13.5 % (Normal) Range: 12.3-15.4 MCHC 33.1 g/dL (Normal) Range: 31.5-35.7 MCH 31.8 pg (Normal) Range: 26.6-33.0 MCV 96 fL (Normal) Range: 79-97 Hematocrit 40.8 % (Normal) Range: 34.0-46.6 Hemoglobin 13.5 g/dL (Normal) Range: 11.1-15.9 RBC 4.24 {x10E6/uL} (Normal) Range: 3.77-5.28 WBC 6.0 {x10E3/uL} (Normal) Range: 3.4-10.8 94-Ngl-050369:04 HEPATIC FUNCTION PANEL Comments: PATIENT NOT FASTINGPERFORMED BY: [facility] HealthDeborah [facility] and Lung CenterHlxefl5251 [facility] [id number] (02392) ALT (SGPT) 12 [iU]/L (Normal) Range: 0-32 AST (SGOT) 14 [iU]/L (Normal) Range: 0-40 Alkaline Phosphatase, S 53 [iU]/L (Normal) Range: 39-117 Bilirubin, Direct 0.10 mg/dL (Normal) Range: 0.00-0.40 Bilirubin, Total 0.3 mg/dL (Normal) Range: 0.0-1.2 Albumin, Serum 4.4 g/dL (Normal) Range: 3.5-5.5 Protein, Total, Serum 6.7 g/dL (Normal) Range: 6.0-8.5 16-Gbb-128202:04 HEPATITIS PANEL (74642) Comments: PATIENT NOT FASTINGPERFORMED BY: [employer]6370 [facility] [id number] Hep C Virus Ab <0.1 {s/co_ratio} (Normal) Range: 0.0-0.9 Comments: Negative: < 0.8 Indeterminate: 0.8 - 0.9 Positive: > 0.9 . The CDC recommends that a positive HCV antibody result be followed up with a HCV Nucleic Acid Amplification test (032247). Hep B Core Ab, IgM Negative (Normal) HBsAg Screen Negative (Normal) Hep A Ab, IgM Negative (Normal) 48-Zqx-746560:09 Lyme Disease Antibody W/ Comments: 6 weeks; PATIENT NOT FASTINGPERFORMED BY: [employer]6370 [facility] [id number] Reflex (37697) Lyme IgG/IgM Ab <0.91 {ISR} (Normal) Range: 0.00-0.90 Comments: Negative <0.91 Equivocal 0.91 - 1.09 Positive >1.09 16-Xct-474678:50 Lyme Disease Antibody W/ Comments: PATIENT NOT FASTINGPERFORMED BY: [facility]CoDebor[facility] and Lung CenterGvafwh4547 [facility] [id number] Reflex (53139) Lyme IgG/IgM Ab <0.91 {ISR} (Normal) Range: 0.00-0.90 Comments: Negative <0.91 Equivocal 0.91 - 1.09 Positive >1.09 3-Emo-347102:30 CBC WITH MANUAL DIFF Comments: PATIENT NOT FASTINGPERFORMED BY: [facility]6370 [facility] [id number] Information: NURSE DRAW; [facility] labs- all normal (14715) Immature Grans (Abs) 0.0 {x10E3/uL} (Normal) Range: [...] 3.77-5.28 WBC 6.1 {x10E3/uL} (Normal) Range: 3.4-10.8 3-Ysq-110414:30 Metabolic Panel, Comprehensive Comments: PATIENT NOT FASTINGPERFORMED BY: [facility]Co[facility] Lung CenterFblylv6447 [facility] [id number] (62938) ALT (SGPT) 16 [iU]/L (Normal) Range: 0-32 [...] Glucose, Serum 90 mg/dL (Normal) Range: 65-99 92-Nxm-837529:41 SONI CULTURE-OTHER (04774) Comments: PATIENT NOT FASTINGPERFORMED BY: [employer]CoDeborah Heart and Lung CenterWloiyw6545 [address] [place] [id number] Information: SRC:TH Result 1 RRF (Normal) Comments: Routine respiratory anali Upper Respiratory Culture Final report (Normal) 72-Agp-83171:05 PAP I-G HPV Hi Risk Comments: CYTOLOGY INFORMATION:- CLINICAL INFORMATION:- DATE LMP/MENOPAUSE: LMP no information on requiredinformation.- COLLECTION VIAL: Thin Prep Vial- SUPERVISOR VENEER SOURCE: CERVICAL- COLLECTION TECHNIQUE: BRUSH ONLYSp ecimen Comment: [id number] Comment: No. of containers..01 CYTYC Thin Prep VialLabCorp (refer to report for specific site)refer to report for address and phone number HPV HC,HGH RISK Negative Comments: This high-risk HPV test detects thirteen high-risk types(16/18/31/33/35/39/45/51/52/56/58/59/68) withoutdifferentiation.Performed at: [facility] [id number] (Normal) b Director: María Elena Jones MD, Phone: [phone] at: =[facility], [place] [id number] Director: María Elena Jones MD, Phone: [phone] PAPSMR Comment Comments: The Pap smear is [...] R87.5 (Normal) PERFORM Comment Comments: Karen Javier, Paint Roller Cover Machine Setter (ASCP) (Normal) ADEQ Comment Comments: Satisfactory for evaluation. Endocervical and/or squamous metaplasticcells (endocervical component) are present. (Normal) DIAGN Comment Comments: NEGATIVE FOR INTRAEPITHELIAL LESION AND MALIGNANCY.FUNGAL ORGANISMS MORPHOLOGICALLY CONSISTENT WITH RADHA SPECIES AREPRESENT.CELLULAR CHANGES ASSOCIATED WITH INFLAMMATION ARE PRESENT. (Normal) 61-Pmb-225249:38 Pathology Report Comments: PERFORMED BY: KWCYT [facility] Cyto Jokbk45456 [facility] [id number] Information: [id number] See MATER Comments: Material submitted: .SHAVE BX [...] in a single cassette./LMSLMS/LMSPathologist provided ICD-9:173.99, 173.81CPT .707477 2-Xlc-084799:17 PAPIG3 Comments: Specimen Comment: No. of containers..01 CYTYC Thin Prep Vial tHPVHR Negative (Normal) Comments: This high-risk HPV test detects thirteen high-risk types(16/18/31/33/35/39/45/51/52/56/58/59/68) withoutdifferentiation..Performed at: - [facility] [id number] ab Director: Papi Lopez MD, Phone: [phone] at: = - [facility] [id number] Director: Papi Lopez MD, Phone: [phone] tPAPSMR Comment (Normal) Comments: The Pap smear [...] tQC Comment (Normal) Comments: Keyana Solis, Supervisory Paint Roller Cover Machine Setter (ASCP) tADEQ Comment (Normal) Comments: Satisfactory for evaluation. Endocervical and/or squamous metaplasticcells (endocervical component) are present. tPERFORM Comment (Normal) Comments: Fatemeh Nunez, Paint Roller Cover Machine Setter (ASCP) tDIAG Comment (Normal) Comments: NEGATIVE FOR INTRAEPITHELIAL LESION AND MALIGNANCY.THIS SPECIMEN WAS RESCREENED PART OF OUR HAND CLOTH CUTTER PROGRAM. :11 LIPID PANEL (02980) Comments: PATIENT WAS FASTINGPERFORMED BY: [facility] EngineeringDeborah Heart and Lung CenterWssxse8504 [facility] [id number] LDL/HDL Ratio 2.0 {ratio_units} (Normal) Range: 0.0-3.2 LDL Cholesterol Calc 115 mg/dL (Abnormal) Range: 0-99 HDL Cholesterol 58 mg/dL (Normal) Comments: According to ATP-III Guidelines, HDL-C >59 mg/dL is considered anegative risk factor for CHD. VLDL Cholesterol Orlin 18 mg/dL (Normal) Range: 5-40 Cholesterol, Total 191 mg/dL (Normal) Range: 100-199 Triglycerides 89 mg/dL (Normal) Range: 0-149 :11 Anti-TPO Antibody (67202) Comments: PATIENT WAS FASTINGPERFORMED BY: [facility]6370 [facility] [id number] Thyroid Peroxidase (TPO) Ab 7 {IU/mL} (Normal) Range: 0-34 :11 TSH (25396) Comments: PATIENT WAS FASTINGPERFORMED BY: [facility]6370 [facility] [id number] TSH 1.200 {uIU/mL} (Normal) Range: 0.450-4.500 :11 T4, FREE (THYROXINE) (06110) Comments: PATIENT WAS FASTINGPERFORMED BY: [facility]6370 [facility] [id number] T4,Free(Direct) 1.10 ng/dL (Normal) Range: 0.82-1.77 :11 T3, FREE (TRIDOTHYRONINE) (49050) Comments: PATIENT WAS FASTINGPERFORMED BY: [facility]6370 [facility] [id number] Triiodothyronine,Free,Serum 2.8 pg/mL (Normal) Range: 2.0-4.4 :11 CBC WITH MANUAL DIFF Comments: PATIENT WAS FASTINGPERFORMED BY: [facility]6370 [facility] [id number] Information: 262216,T26793 (72751) Immature Grans (Abs) 0.0 {x10E3/uL} (Normal) Range: [...] 3.77-5.28 WBC 5.6 {x10E3/uL} (Normal) Range: 4.0-10.5 23-Aro-95720:11 METABOLIC PANEL, COMPREHENSIVE Comments: PATIENT WAS FASTINGPERFORMED BY: LabCoDebor[facility] Lung CenterWvoags4137 [facility] [id number] (29840) ALT (SGPT) 10 [iU]/L (Normal) Range: 0-32 [...] (Normal) Range: 65-99 :11 Vitamin D Hydroxy (94368) Comments: PATIENT WAS FASTINGPERFORMED BY: [employer]6370 [facility] [id number] Vitamin D, 25-Hydroxy 34.1 ng/mL (Normal) Range: 30.0-100.0 Comments: Vitamin D deficiency has been defined by the [place] of[place] and an Endocrine Society practice guideline as alevel of serum 25-OH vitamin D less than 20 ng/mL (1,2).The Endocrine Society went on to further define vitamin Dinsufficiency as a level between 21 and 29 ng/mL (2).1. IOM ([place] of Medicine). 2010. Dietary reference intakes for calcium and D. [place]: The National Academies Press.2. Nicole MF, [place], Ra CESPEDES, et al. Evaluation, treatment, and prevention of vitamin D deficiency: an Endocrine Society clinical practice guideline. JCEM. 2010; 96(7):1911-30. :11 PARATHORMONE (43359) Comments: PATIENT WAS FASTINGPERFORMED BY: [employer] [facility] Pqocmj9314 [facility] [id number] PTH, Intact 25 pg/mL (Normal) Range: 15-65 99-Cjn-999622:51 MRSAD tMRSA Negative (Normal) SOURCE: NASAL SWAB (Normal) 0-Gpq-268136:27 THYROID Radiology Report See Note (Normal) Comments: [...] Young M.D.January 28, 2012 at 3:57:09 PM [id number] nically Signed GP/GP If you are the referring physician and would like to consult with theradiologist who provided this interpretation, please contact Kosta Cifuentes at [phone]. If this ra diologist is unavailable, youwill be directed to another radiologist to assist. If you are a patient with a question regarding this report, pleasecontactyour referring physician directly. Professional I nterpretation Provided By: [employer], Phone , These documents contain legally protected [...] return or destructionofthese documents. Dictated on 01/28/12 5044 by Kennedy Young MDribed on 01/28/12 1603 by ITS IMPORTSign by Sergio Young MD on 01/28/12 1602 Sign by: Hector SOLIMANSergio 65-Any-62622:44 Pathology Report Comments: PERFORMED BY: [facility] Jzfr96258 [facility] [id number] BY: Michelle) [facility] Dept Of Sksbaz838 [facility] [id number] Clinical Inf ormation: [id number] See MATER Comments: Material submitted: .PUNCH BIOPSYY OF LEFT BACK SHOULDERClinical history: .IRRITATED MOLEFAST GROWING CRUSTY MOL Note (Normal) EFOR MARGINSDiagnosis:INFLAMED AND IRRITATED SEBORRHEIC KERATOSIS.IDK/10/24/2011 Electronically signed: .Kat Low MD, DermatopathologistGross description: .RECEIVED IN F ORMALIN LABELED FAISAL HAYS WITHOUT SITEIDENTIFIED ON THE CONTAINER DESIGNATED LEFT BACK SHOULDER ON THEREQUISITION IS A HOLGUIN/BROWN SKIN PUNCH MEASURING 0.4 CM INDIAMETER EXCISED TO A DEPTH OF 0.7 CM. THE SPECIMEN IS INKEDBLACK AT THE MARGIN, BISECTED AND ENTIRELY SUBMITTED..APA/JASPathologist provided ICD-9:702.11CPT .791929 37-Kzw-713110:29 Urinalysis, Office (11711) UA - BILIRUBIN Negative (Normal) UA - BLOOD Hemolyzed Moderate (Normal) UA - GLUCOSE Negative (Normal) UA - KETONES Negative mg/dL (Normal) UA - LEUKOCYTE ESTERASE Moderate (Normal) UA - NITRITE Negative (Normal) UA - PH 6.0 (Normal) UA - PROTEIN Negative mg/dL (Normal) UA - SPECIFIC GRAVITY 1.025 (Normal) URINE UROBILINGN MURIEL TIMED Normal mg/dL (Normal) :26 HCV Antibody Comments: PERFORMED BY: [employer] [facility] [id number] Hep C Virus Ab <0.1 {s/co_ratio} Range: 0.0-0.9 (Normal) Comments: Negative: < 0.8Indeterminate 0.8 - 0.9Positive: > 0.9.In order to reduce the incidence of a false positiveresult, the CDC recommends that all s/co ratiosbetween 1.0 and 10.9 be confirmed with additionalRIBA or PCR testing. : Hep B Surface Ab 0.59 {Index_Value} Comments: PERFORMED BY: [employer] [facility] [id number] 26 (Normal) Range: 0.00-0.99 Comments: Status of Immunity Anti-HBs Level Inconsistent with Immunity 0.00 - 0.99Consistent with Immunity >0.99.An Index Value of 1.00 is equivalent to 10 mIU/mL.However the magnitude of the Index Value is notindicative of the total amount of antibody present. :26 Panel [id number] Comments: PERFORMED BY: [employer] [facility] [id number] HIV 1/O/2 Abs, Qual Non Reactive (Normal) HIV 1/O/2 Abs-Index Value <1.00 (Normal) Comments: Index Value: Specimen reactivity relative to the negative cutoff. :15 URINE SONI CULTURE-MURIEL COL Comments: PATIENT NOT FASTINGPERFORMED BY: [employer] [facility] [id number] Information: SRC: [id number] COUNT (86416) Antimicrobial MIHEAD (Normal) Comments: S = Susceptible; [...] mL (Normal) Urine Final report (Normal) Culture,Comprehensive 84-Xol-69289:16 Urinalysis, Office (17278) UA - LEUKOCYTE ESTERASE Moderate (Normal) UA - NITRITE Negative (Normal) URINE UROBILINGN MURIEL TIMED Normal mg/dL (Normal) UA - PROTEIN Trace mg/dL (Normal) UA - PH 6.0 (Normal) UA - BLOOD Hemolyzed Large (Normal) UA - SPECIFIC GRAVITY 1.005 (Normal) UA - KETONES Negative mg/dL (Normal) UA - BILIRUBIN Negative (Normal) UA - GLUCOSE Negative (Normal) 30-Jcu-654302:37 SPINE,LUMBAR (ROUTINE) Radiology Report See Note (Normal) Comments: Exam Number: [id number] CLINICAL: Low back pain since April, severe [...] other level. Reported By: HIPOLITO SCOTT M.D. 92-Klf-74688:12 BILAT SCRN IMPLANT DIG & CAD Radiology Report See Note (Normal) Comments: Exam Number: [id number] MAMMOGRAM, BILATERAL SCREENING IMPLANT DIGITAL AND CAD [...] werealso examined with computer-a ided detection software (hoccer, [employer].). Reported By: ESTEBAN VALERA M.D. 4-Fho-436634:02 THYROID (HP) Radiology Report See Note (Normal) Comments: Exam Number: [id number] THYROID ULTRASOUND HISTORYThyromegaly. High resolution real-time linear [...] be performed. Reported By: ESTEBAN VALERA M.D. 94-Hkj-415834:31 Hepatic Function Panel (7) Comments: PATIENT WAS FASTINGPERFORMED BY: [facility] Yddium6598 [facility] [id number] Albumin, Serum 4.6 g/dL (Normal) Range: 3.5-5.5 Alkaline Phosphatase, S 50 [iU]/L (Normal) Range: 25-150 ALT (SGPT) 13 [iU]/L (Normal) Range: 0-40 AST (SGOT) 14 [iU]/L (Normal) Range: 0-40 Bilirubin, Direct 0.15 mg/dL (Normal) Range: 0.00-0.40 Bilirubin, Total 0.6 mg/dL (Normal) Range: 0.1-1.2 Protein, Total, Serum 6.8 g/dL (Normal) Range: 6.0-8.5 54-Ryc-780675:52 ABDOMEN COMPLETE Radiology Report See Note (Normal) Comments: Exam Number: [id number] COMPLETE ABDOMINAL ULTRASOUND HISTORYAbdominal pain. High resolution [...] 4.2 x 5.5 cm. The left kidney xpcantpu40.4 x 6.1 x 5.2 cm. Th ere [...] is normal. Reported By: ESTEBAN VALERA M.D. 60-Hcg-984665:56 CBC, Platelets & Auto Diff Comments: PATIENT NOT FASTINGClinical Information: ADD DARW FEE [id number] ADD J0 1947 PERFORMED BY: [facility]6370 [facility] [id number] (51450) Baso (Absolute) 0.1 {x10E3/uL} (Normal) Range: 0.0-0.2 [...] 11.7-15.0 WBC 5.3 {x10E3/uL} (Normal) Range: 4.0-10.5 88-Gzf-464531:56 Metabolic Panel, Comprehensive Comments: PATIENT NOT FASTINGPERFORMED BY: [facility] Oiunxt8240 [facility] [id number] (92081) A/G Ratio 1.9 (Normal) Range: 1.1-2.5 Albumin, [...] Sodium, Serum 138 mmol/L (Normal) Range: 135-148 83-Rzz-960429:56 Lipid Panel (17754) Comments: PATIENT NOT FASTINGPERFORMED BY: [facility] HealthDeborah [facility] Lung CenterKrwudn9130 [facility] [id number] Cholesterol, Total 176 mg/dL (Normal) Range: 100-199 Comment SPRCS (Normal) Comments: HDL cholesterol values >59 mg/dL are associated with reduced cardiacrisk. HDL Cholesterol 67 mg/dL (Abnormal) Range: 40-59 LDL Cholesterol Calc 94 mg/dL (Normal) Range: 0-99 LDL/HDL Ratio 1.4 {ratio_units} (Normal) Range: 0.0-3.2 Triglycerides 74 mg/dL (Normal) Range: 0-149 VLDL Cholesterol Orlin 15 mg/dL (Normal) Range: 5-40 67-Fuo-657561:56 HELICOBACTER PYLORI ANTIBODY Comments: PATIENT NOT FASTINGPERFORMED BY: [facility] HealthDeborah [facility] and Lung CenterFdzweo4038 [facility] [id number] (87743) H. pylori IgG, Abs <0.9 U/mL (Normal) [...] Acute sinusitis Planned Observations Metabolic Panel, Comprehensive (99180)Indication: Jaundice On: :05 Request HEPATIC FUNCTION PANEL (64592)Indication: Jaundice On: :05 Request Lyme Disease Antibody W/ Reflex (87597)Indication: Tick bite On: 60-Ger-382124:04 Request Comments: 6 months PARATHORMONE (12171)Indication: Family history of hyperparathyroidism On: 92-Rsn-13822:45 Request Vitamin D Hydroxy (67650)Indication: Vitamin D deficiency On: 43-Kzf-18340:45 Request HPV automatic (27892)Indication: Screening for HPV (human papillomavirus) (Renamed from Encounter for screening for human papillomavirus (HPV)) On: 74-Zbv-970892:24 Request Thin prep Pap (46070) (no STD testing)Indication: Well woman exam On: 46-Rxo-388791:02 Request HPV automatic (05885)Indication: Screening for HPV (human papillomavirus) On: 1-Vsr-039268:37 Request Thin prep Pap (53047)Indication: Well woman exam On: 3-Ckf-211567:37 Request MRSA Culture (01947)Indication: Unspecified open wound of other finger without damage to nail, initial encounter On: :53 Request LIPID PANEL (19996)Indication: xanthelasma On: :29 Request CBC WITH MANUAL DIFF (34950)Indication: Anemia On: :29 Request T3, FREE (TRIDOTHYRONINE) (99803)Indication: Thyroid nodule On: :29 Request T4, FREE (THYROXINE) (60364)Indication: Thyroid nodule On: :29 Request Anti-TPO Antibody (35870)Indication: Thyroid nodule On: :29 Request TSH (21205)Indication: Thyroid nodule On: :28 Request URINALYSIS (52674)Indication: Urinary frequency On: 56-Zzq-504653:[address] - Abdomen (IV Contrast Needed)By: On: 09-Feb-2018 Intent Fast DO, Jovana A Fast DO, Jovana A Ultrasound - ThyroidBy: Fast DO, On: 14-Nov-2017 Intent Jovana A Fast DO, Jovana A ULTRASOUND, RIGHT BREAST (31154)By: On: 06-Nov-2017 Intent Louisa Pantoja Holter Monitor 24 hrsBy: Fast DO, On: 19-Jul-2016 Intent Jovana A Fast DO, Jovana A Echo CompleteBy: Fast DO, Jovana A On: 19-Jul-2016 Intent Fast DO, Jovana A EsophagramBy: Fast DO, Jovana A Fast On: 19-Jul-2016 Intent DO, Jovana A Comments: with 11 mm tablet SCREENING DIGITAL TOMOSYNTHESIS OF On: 19-Jul-2016 Intent BREAST (11808)By: Fast DO, Jovana A Fast DO, Jovana A EsophagramBy: Fast DO, Jovana A Fast On: 06-Nov-2015 Intent DO, Jovana A Comments: with 12 mm tablet Ultrasound - ThyroidBy: Fast DO, On: 20-Sep-2015 Intent Jovana A Fast DO, Jovana A MAMMOGRAM, SCREENING, BOTH BREAST On: 22-Feb-2015 Intent (91027)By: Fast DO, Jovana A Fast DO, Jovana A Toradol Injection, 30 mg (J1885)By: On: 30-Nov-2014 Intent Tiffanie Cevallos CNP Comments: given [facility] rt BIOPSY OF SKIN LESION, SINGLE On: 15-Mar-2013 Intent (34737)By: Tiffanie Cevallos CNP Breast Ultrasound - RightBy: Fast DO, On: 26-Feb-2013 Intent Jovana A Fast DO, Jovana A Eprescribed prescriptions (G8553)By: On: 03-Feb-2013 Intent Flinner, Benita MRI - BreastBy: Fast DO, Jovana [...] Cevallos CNP Comments: given left glut lot #[id number] exp Feb 05 Toradol Injection, 30 mg [...] Indication: Breast pain Encounters Office Visit On: 09-Feb-2018 13:51 Encounter Diagnosis: [...] years ago- maybe 10- had gone to [place] [facility]- low back and left buttocks- [...]
== END ==
PROVIDERS: Family Provider Internal Medicine; PCP Internal Medicine; Referring Provider Internal Medicine; Visit Provider Internal Medicine
DX: R13.10 Dysphagia, unspecified (principal)
CPT/HCPCS: 74220

== ENCOUNTER → 2018-06-09 10:21 | Outpatient (CLI) | payer OTHER, SELFPAY ==
--- NOTE | 2018-06-09 10:37 | MRI_ITS ---
STUDY: BILATERAL BREAST MR WITHOUT AND WITH CONTRAST REASON FOR EXAM: Female, 52 years old. Gel implants placed in 2001. Evaluate for right breast implant rupture. TECHNIQUE: Multi-sequence multi-echo imaging of both breasts was performed with a dedicated breast coil. T1-weighted and T2-weighted images were performed before the administration of contrast. No contrast was administered as the study was looking for implant rupture. COMPARISON: FINDINGS: Both breasts show extremely prominent folds with the right showing more folds on the left. There is no evidence of intracapsular or extracapsular rupture. There are no enlarged or abnormal lymph nodes. There is no abnormality in the visualized regions of the chest or liver. MRI/BREAST W/O CONT BILAT IMPRESSION: Prominent folds in both breasts with no evidence of intracapsular or extracapsular rupture. CATEGORY: BIRADS Category 2: Benign. A letter regarding these results will be sent to the patient by the facility within 30 days. Electronically Signed: Gerber Martinez MD at 17:52 EST , Service support ,
== END ==
PROVIDERS: Family Provider Internal Medicine; PCP Internal Medicine; Referring Provider Internal Medicine; Visit Provider Internal Medicine
DX: N64.4 Mastodynia (principal)
CPT/HCPCS: 77047

== ENCOUNTER → 2019-02-17 09:18 | Outpatient (CLI) | payer OTHER, SELFPAY | PROVIDERS: Family Provider Internal Medicine; PCP Internal Medicine; Referring Provider Internal Medicine; Visit Provider Internal Medicine | DX: I49.3 Ventricular premature depolarization (principal) | CPT/HCPCS: 93225; 93226 ==

== ENCOUNTER → 2019-10-15 15:32 | Outpatient (CLI) | payer OTHER, SELFPAY ==
--- NOTE | 2019-10-15 15:35 | VDLE_ITS ---
Reason For Study: Lt ankle swelling RIGHT LEFT CFV is compressible, spontaneous, phasic, GSV is normal. competent and demonstrates normal CFV is compressible, spontaneous, phasic, augmentation. competent, and demonstrates normal Procedure augmentation. Exam performed in department. FV is compressible, spontaneous, phasic, A preliminary report was called and/or faxed competent and demonstrates normal to Jane. augmentation. POP V is compressible, spontaneous, phasic, competent and demonstrates normal augmentation. T/P Trunk is compressible. PTV is compressible. LT PerV is compressible. Interpretation Summary Deep veins of the left lower extremity are patent and compressible segmentally. There is no evidence of left lower extremity deep vein thrombosis. Valvular competence appears intact within the proximal deep venous system on the left . The left great saphenous vein appears patent and compressible segmentally. Ordering Physician: Jalyn Lara Referring Physician: Jovana Puentes D.O. Performed By: Marielena Lucas RVT
== END ==
PROVIDERS: PCP Internal Medicine; Referring Provider Internal Medicine; Visit Provider Internal Medicine
DX: M25.472 Effusion, left ankle (principal)
CPT/HCPCS: 93971